=== PATIENT | male | born 1990 | race Caucasian/White ===

== ENCOUNTER 2016-11-23 03:26 | Inpatient (IN) | payer OTHER, MEDICAID ==
[2016-11-23] VITALS (17 sets, daily range): BP systolic 96–143; BP diastolic 55–73; PULSE 73–113; RESP 18–24; TEMP 99.1–100.8; O2SAT 91–100
[~2016-11-23] VITALS: Ht 175.3 cm; Wt 86.7 kg
[~2016-11-23 03:26] MED LIST: NAPR500 PO
[2016-11-23] MEDS ORDERED: ceFAZolin 2 GM PREMIX 50 ML IV STA (03:30)
[2016-11-23] MEDS ORDERED: GENTAMICIN/SOD CHL 80 MG/100 ML IV SCH (03:30)
[2016-11-23] MEDS ORDERED: ceFAZolin 2 GM PREMIX 50 ML ONE (03:35)
[2016-11-23] MEDS: MIDAZOLAM HCL 5 MG/ML VIAL (1 ML) ONE ×2 (03:42→08:10)
[2016-11-23] MEDS ORDERED: GENTAMICIN 80 MG PREMIX 100 ML ONE (03:45)
[2016-11-23 03:51] LABS: AUTOMATED NEUTROPHIL # 5.3 TH/MM3 (1.8-7.7); BASOPHIL # 0.1 TH/MM3 (0-0.2); EOSINOPHIL % 0.1 % (0.0-4.0); HEMATOCRIT 42.3 % (39.0-51.0); HEMO FLAGS AUTO DIFF; LYMPH % 49.1 % (9.0-44.0); LYMPHOCYTE # 5.7 TH/MM3 (1.0-4.8); MEAN CELL VOLUME 92.2 FL (80.0-100.0); MEAN CORPUSCULAR HEMOGLOBIN 30.4 PG (27.0-34.0); MONO % 4.3 % (0.0-8.0); NEUT % 45.5 % (16.0-70.0); PLATELET COUNT 240 TH/MM3 (150-450); RED BLOOD COUNT 4.59 MIL/MM3 (4.50-5.90); RED CELL DISTRIBUTION WIDTH 13.2 % (11.6-17.2); WHITE BLOOD COUNT 11.6 TH/MM3 (4.0-11.0)
[2016-11-23] MEDS: PANTOPRAZOLE SODIUM 40 MG VIAL IV SCH (04:00)
[2016-11-23] MEDS ORDERED: ONDANSETRON HCL 4 MG/2 ML VIAL IV PRN (04:00)
[2016-11-23] MEDS ORDERED: Post-op Orders (for Pharmacy) MISC XX ONE (04:00)
[2016-11-23] MEDS ORDERED: SODIUM CHLORIDE 0.9% FLUSH 10 ML FLUSH IV FLUSH PRN (04:00)
[2016-11-23] MEDS ORDERED: NALOXONE HCL 0.4 MG/ML AMP IV PRN (04:00)
[2016-11-23 04:02] LABS: INTERNATIONAL NORMALIZED RATIO 1.4 RATIO; PROTHROMBIN TIME - PATIENT 15.7 SEC (9.8-11.6)
[2016-11-23] MEDS ORDERED: IOHEXOL 350 MG/ML 10 ML VIAL (for RAD DIAG) IV ONE (04:06)
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
[2016-11-23 04:17] LABS: BANDS 1 % (0-6); NEUTROPHIL # MANUAL DIFF 5.7 TH/MM3 (1.8-7.7); POLYS (SEG NEUTROPHILS) 48 % (16-70); WBC DIFF SAMPLE 100
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
[2016-11-23 04:18] LABS: PLATELET ESTIMATE SMEAR NORMAL (NORMAL); PLATELET MORPHOLOGY NORMAL (NORMAL); SCAN/DIFF FINAL DIFF MANUAL
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
[2016-11-23] MEDS ORDERED: MIDAZOLAM HCL 5 MG/ML VIAL (1 ML) ONE (04:29)
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
[2016-11-23] MEDS ORDERED: LIDOCAINE HCL 1% 50 ML VIAL ONE (04:31)
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
[2016-11-23] MEDS ORDERED: DIPHTH/TETANUS/ACEL PERTUSSIS (BOOSTER) 0.5 ML VIAL/PFS IM ONE (04:53)
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
[2016-11-23] MEDS ORDERED: TRANEXAMIC ACID INJ 1,000 MG/10 ML AMP ONE (05:23)
[2016-11-23] MEDS ORDERED: SUCCINYLCHOLINE CHLORIDE 200 MG/10 ML VIAL ONE (05:24)
[2016-11-23] MEDS ORDERED: ETOMIDATE 20 MG/10 ML VIAL ONE (05:24)
[2016-11-23] MEDS ORDERED: SODIUM CHLOR 0.9% 1000 ML INJ 1,000 ML IV SCH (05:30)
[2016-11-23 05:55] LABS: BLOOD GAS BASE EXCESS -10.1 mmol/L (-2-2); BLOOD GAS HCO3 18 mmol/L (22-26); BLOOD GAS METHEMOGLOBIN 1.2 % (0-2); BLOOD GAS O2 HGB SATURATION 96 % (90-100); BLOOD GAS OXYGEN CONTENT 18.1 Vol % (12.0-20.0); BLOOD GAS PCO2 62 mmHg (38-42); BLOOD GAS PO2 222 mmHg (61-120); BLOOD GAS TOTAL HGB 13.1 G/DL (12.0-16.0); OXYGEN DEVICE VENTILATOR; TEMP CORR TO 98.6; VENT SETTINGS APRV
[2016-11-23 05:56] LABS: FIO2 100 %
[2016-11-23] MEDS: NOREPINEPHRINE-DEXTROSE DRIP 250 ML IV ONE ×2 (05:57→08:10)
[2016-11-23 05:58] LABS: NUMBER OF ARTERIAL PUNCTURES 1; STAT NO
[2016-11-23 05:59] LABS: CRITICAL VALUE YES; DRAW SITE RT RADIAL
--- NOTE | 2016-11-23 06:06 | RADRPT ---
EXAM DATE/TIME: 11/23/2016 04:33 [facility] COMPARISON: CHEST SINGLE AP, November 23, 2016, 3:22. INDICATIONS : E-T tube repositioning, second left chest tube placement, and O-G tube placement. MEDICAL HISTORY : None. SURGICAL HISTORY : None. ENCOUNTER: Subsequent ACUITY: 1 day PAIN SCORE: Non-responsive. LOCATION: Bilateral chest FINDINGS: Single portable frontal view the chest shows retraction of the endotracheal tube. The tip is 5 cm pro ximal to the justino. 2 left thoracostomy tubes and nasogastric tube noted. No pneumothorax. Consolida tion involving the left lung and right upper lobe unchanged. Subcutaneous air tracking over the left chest and lower neck. Heart is normal in size. Multiple left-sided rib fractures. Left clavicular fra cture. CONCLUSION: 1. Repositioning of the endotracheal tube. 2. Placement of second chest tube on the left. Shmuel Callaway Jr., MD on November 23, 2016 at 6:03 Board Certified Radiologist. This report was verified electronically.
[2016-11-23] MEDS ORDERED: VASOPRESSIN INJ 20 UNITS/ML VIAL ONE (06:15)
[2016-11-23] MEDS ORDERED: VASOPRESSIN 40 U/D5W 100 ML Shock/septic shock, do NOT titrate until taper off IV SCH ×2 (06:30)
--- NOTE | 2016-11-23 06:37 | PD.PROCEDR ---
Central Line Procedure REASON FOR PROCEDURE Central venous access PROCEDURE PERFORMED Central line placement: Right femoral vein CONSENT Informed consent for procedure was not obtained and concern emergent. Due to his hemodynamic instability patient. The risks and benefits of the procedure were discussed to include but limited to bleeding, clot formation, infection, and even . ANESTHESIA Local injection of 1% Lidocaine DESCRIPTION OF THE PROCEDURE The patient was placed in supine, mild Trendelenburg position. The area was exposed and cleansed with ChloraPrep, times two. Large sterile drape was used to cover the patient, with the site exposed, under sterile conditions including cap, face mask, sterile gown, and sterile gloves. On single attempt, the introducer needle was inserted with negative pressure in syringe and venous flash was obtained. The guide wire was then advanced without any restriction and the needle was removed. The dilator was used without any complications. Using Seldinger technique the triple-lumen catheter was advanced over the guide wire to a depth of 20 centimeters. The guide wire was removed. All ports were aspirated with dark venous blood return and flushed easily with sterile saline. All ports were capped. Antibiotic disc was placed around central line at puncture site. The central line was secured to the skin with two interrupted 2.0 silk sutures. The area was bandaged with sterile see-through central line bandage. RADIOLOGICAL DATA Ultrasound guidance was used to locate right femoral vein. Doppler/color flow was used to confirm venous flow. COMPLICATIONS: No apparent complications ESTIMATED BLOOD LOSS: Less than 1 cc. Abdullahi Navarrete MD Nov 23, 2016 06:37
--- NOTE | 2016-11-23 06:38 | PD.PROCEDR ---
Procedure Note Procedure DATE: 11/23/2016 PROCEDURE: Right femoral arterial catheter placement INDICATION: Dynamic access DETAILS OF PROCEDURE The patient was placed in supine position. The skin was cleansed with Chloraprep. Additional barrier precautions included large sterile drape, sterile gloves, sterile gown, face mask, and hat. 1% lidocaine was used for local anesthesia. Under direct ultrasound guidance and on the initial attempt, the artery was accessed with an introducer needle. The guide wire was advanced. Using Seldinger technique 20 gauge arterial catheter was placed. The guide wire was removed. The catheter was connected to a transducer line and flushed with saline. The video monitor displayed normal arterial wave forms. The catheter was secured with 2-0 silk. A sterile dressing with antibiotic disc was applied. ESTIMATED BLOOD LOSS: minimal COMPLICATIONS: None Abdullahi Navarrete MD Nov 23, 2016 06:37
[2016-11-23 07:08] LABS: HEMATOCRIT 38.1 % (39.0-51.0); MEAN CELL VOLUME 89.7 FL (80.0-100.0); MEAN CORPUSCULAR HEMOGLOBIN 30.3 PG (27.0-34.0); MEAN CORPUSCULAR HGB CONC 33.8 % (32.0-36.0); PLATELET COUNT 195 TH/MM3 (150-450); RED BLOOD COUNT 4.25 MIL/MM3 (4.50-5.90); RED CELL DISTRIBUTION WIDTH 14.3 % (11.6-17.2); REVIEW FLAG FINAL; WHITE BLOOD COUNT 17.9 TH/MM3 (4.0-11.0)
--- NOTE | 2016-11-23 07:24 | RADRPT ---
EXAM DATE/TIME: 11/23/2016 07:03 [facility] COMPARISON: CHEST SINGLE AP, November 23, 2016, 4:33. INDICATIONS : Evaluate pneumothorax. MEDICAL HISTORY : None. SURGICAL HISTORY : Left side chest tube ENCOUNTER: Subsequent ACUITY: 1 day PAIN SCORE: Non-responsive. LOCATION: Bilateral chest FINDINGS: The 2 left-sided chest tubes remain in place. No definite pneumothorax. It continues to be interstiti al infiltrates throughout the left lung. There is a mild right perihilar infiltrate. Otherwise the re st of the right lung is grossly clear and stable. The endotracheal tube and NG tube remain in place. There is subcutaneous emphysema along the left chest wall. The heart size is stable. The bony structu res are stable. No significant changes compared to the prior study. CONCLUSION: 1. No definite pneumothorax. 2. No significant change compared to the prior exam. Jacky Thompson MD on November 23, 2016 at 7:21 Board Certified Radiologist. This report was verified electronically.
[2016-11-23 07:31] LABS: APTT (PATIENT) 28.6 SEC (24.3-30.1); INTERNATIONAL NORMALIZED RATIO 1.3 RATIO; PROTHROMBIN TIME - PATIENT 14.1 SEC (9.8-11.6)
[2016-11-23] MEDS: SODIUM CHLORIDE 0.9% FLUSH 10 ML FLUSH IV FLUSH SCH ×2 (07:53→19:23)
[2016-11-23] MEDS ORDERED: GENTAMICIN SULFATE 80 MG/2 ML VIAL ONE (07:59)
[2016-11-23] MEDS ORDERED: ceFAZolin INJ 1,000 MG VIAL ONE (07:59)
[2016-11-23] MEDS ORDERED: VANCOMYCIN HCL 1000 MG VIAL ONE (07:59)
[2016-11-23] MEDS ORDERED: PHYTONADIONE INJ 10 MG in SODIUM CHLORIDE 0.9% INJ 50 ML IV ONE (08:00)
[2016-11-23] MEDS: PROPOFOL 1000 MG/100 ML INJ 100 ML IV SCH ×4 (08:04→23:16)
[2016-11-23] MEDS: SODIUM CHLOR 0.9% 1000 ML INJ 1,000 ML IV SCH ×3 (08:04→22:46)
[2016-11-23] MEDS: fentaNYL DRIP 250 ML IV SCH ×2 (08:05→15:24)
[2016-11-23 08:44] LABS: BLOOD GAS BASE EXCESS -10.6 mmol/L (-2-2); BLOOD GAS CARBOXYHEMOGLOBIN 0.9 % (0-4); BLOOD GAS HCO3 16 mmol/L (22-26); BLOOD GAS O2 HGB SATURATION 96 % (90-100); BLOOD GAS OXYGEN CONTENT 18.5 Vol % (12.0-20.0); BLOOD GAS PCO2 46 mmHg (38-42); BLOOD GAS PO2 139 mmHg (61-120); BLOOD GAS TOTAL HGB 13.5 G/DL (12.0-16.0); TEMP CORR TO 98.6
[2016-11-23 08:45] LABS: CRITICAL VALUE YES; OXYGEN DEVICE VENTILATOR
[2016-11-23 08:46] LABS: DRAW SITE ART LINE; FIO2 100 %; STAT NO; VENT SETTINGS PC/AC
[2016-11-23] MEDS ORDERED: TERBUTALINE INJ 1 MG/ML AMP SQ PRN ×3 (09:00→14:30)
[2016-11-23] MEDS ORDERED: levETIRAcetam INJ 500 MG in SODIUM CHLORIDE 0.9% INJ 100 ML IV SCH (09:00)
[2016-11-23] MEDS ORDERED: VASOPRESSIN INJ 40 UNITS in DEXTROSE 5% IN WATER 100ML INJ 98 ML IV SCH ×2 (09:00)
[2016-11-23] MEDS: NOREPINEPHRINE INJ 4 MG in SODIUM CHLOR 0.9% 250 ML INJ 246 ML IV SCH ×5 (09:01→22:46)
[2016-11-23 10:02] LABS: BLOOD GAS BASE EXCESS -8.3 mmol/L (-2-2); BLOOD GAS CARBOXYHEMOGLOBIN 0.9 % (0-4); BLOOD GAS HCO3 16 mmol/L (22-26); BLOOD GAS O2 HGB SATURATION 98 % (90-100); BLOOD GAS OXYGEN CONTENT 17.3 Vol % (12.0-20.0); BLOOD GAS PCO2 31 mmHg (38-42); BLOOD GAS PO2 321 mmHg (61-120); TEMP CORR TO 98.6
[2016-11-23 10:03] LABS: CRITICAL VALUE YES; DRAW SITE ART LINE; FIO2 100 %; OXYGEN DEVICE VENTILATOR; STAT NO; VENT SETTINGS PC/AC
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
[2016-11-23] MEDS: VASOPRESSIN INJ 40 UNITS in SODIUM CHLORIDE 0.9% INJ 100 ML IV SCH (11:11)
[2016-11-23 11:19] LABS: HEMATOCRIT 36.5 % (39.0-51.0); REVIEW FLAG FINAL
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
--- NOTE | 2016-11-23 14:28 | RADRPT ---
EXAM DATE/TIME: 11/23/2016 13:52 [facility] COMPARISON: CT THORAX W CONTRAST, June 02, 2015, 13:07. INDICATIONS : Acute respiratory change. MEDICAL HISTORY : None. SURGICAL HISTORY : None. ENCOUNTER: Initial ACUITY: 1 day PAIN SCORE: Non-responsive. LOCATION: Bilateral chest FINDINGS: Endotracheal tube is present with tip 6 cm above the justino. A nasogastric tube descends in the stoma ch. A right subclavian vascular sheath is present. There left thoracostomy tubes are noted. There is extensive consolidative change in the left lung. No significant pneumothorax. Extensive subcutaneous emphysema. Rib fractures. Cardiac contours are grossly satisfactory. CONCLUSION: Satisfactory support line and tube positioning. Bennie Prieto MD on November 23, 2016 at 14:24 Board Certified Radiologist. This report was verified electronically.
[2016-11-23] MEDS ORDERED: PHENYLEPHRINE INJ 160 MG in DEXTROSE 5% IN WATE 500 ML INJ 484 ML IV SCH ×2 (14:30)
[2016-11-23] MEDS ORDERED: SODIUM CHLOR 0.9% 1000 ML INJ 1,000 ML IV ONE ×4 (14:30→22:00)
[2016-11-23] MEDS ORDERED: ALBUMIN HUMAN 5% 25 GM/500 ML BOTTLE IV ONE ×2 (14:30→22:00)
[2016-11-23] MEDS ORDERED: ACETAMINOPHEN 325 MG TAB PO PRN (14:30)
[2016-11-23] MEDS: ACETAMINOPHEN 1000 MG/100 ML VIAL IV PRN (14:49)
[2016-11-23 14:51] LABS: BLOOD GAS VENOUS BASE EXCESS -8.6 mmol/L (-2-2); BLOOD GAS VENOUS HCO3 18 mmol/L (22-26); BLOOD GAS VENOUS O2 CONTENT 11.4 Vol % (9.0-17.0); BLOOD GAS VENOUS O2 HGB SAT 67 % (70-76); BLOOD GAS VENOUS PCO2 46 mmHg (44-48); BLOOD GAS VENOUS PO2 39 mmHg (35-40); BLOOD GAS VENOUS pH 7.21 (7.360-7.400); CRITICAL VALUE YES; OXYGEN DEVICE VENTILATOR; TEMP CORR TO 98.6
[2016-11-23 14:55] LABS: DRAW SITE CENTRAL LINE; FIO2 100 %; STAT YES; VENT SETTINGS BILEVEL
[2016-11-23 15:21] LABS: HEMATOCRIT 33.9 % (39.0-51.0); REVIEW FLAG FINAL
[2016-11-23] MEDS ORDERED: PHENYLEPHRINE INJ 40 MG in DEXTROSE 5% IN WATE 500 ML INJ 496 ML IV SCH ×2 (15:30)
[2016-11-23 15:35] LABS: APTT (PATIENT) 30.1 SEC (24.3-30.1); INTERNATIONAL NORMALIZED RATIO 1.1 RATIO; PROTHROMBIN TIME - PATIENT 12.7 SEC (9.8-11.6)
[2016-11-23 16:19] LABS: BLOOD GAS BASE EXCESS -7.9 mmol/L (-2-2); BLOOD GAS CARBOXYHEMOGLOBIN 0.5 % (0-4); BLOOD GAS HCO3 19 mmol/L (22-26); BLOOD GAS O2 HGB SATURATION 98 % (90-100); BLOOD GAS PCO2 49 mmHg (38-42); BLOOD GAS PO2 247 mmHg (61-120); BLOOD GAS TOTAL HGB 11.2 G/DL (12.0-16.0); CRITICAL VALUE YES; OXYGEN DEVICE VENTILATOR; TEMP CORR TO 98.6
[2016-11-23 16:21] LABS: DRAW SITE ART LINE; FIO2 100 %; VENT SETTINGS BILEVEL
[2016-11-23 16:22] LABS: STAT NO
--- NOTE | 2016-11-23 16:59 | EC ---
Study Study Date:11/23/2016 STUDY CONCLUSIONS SUMMARY - Left ventricle: The cavity size was normal. Wall thickness was normal. Systolic function was grossly normal. - Aortic valve: Valve area: 2.4cm^2 (Vmax). If LV function is below 40, please consider prescribing an ACEI or ARB or document rationale for non-use. PROCEDURE DATA STUDY STATUS: Elective. Procedure: Transthoracic echocardiography. Image quality was poor. Scanning was performed from the parasternal, apical, and subcostal acoustic windows. Study completion: The patient tolerated the procedure well. Transthoracic echocardiography. M-mode, complete 2D, complete spectral Doppler, and color Doppler. Patient status: Inpatient. CARDIAC ANATOMY LEFT VENTRICLE: Poorly visualized. The cavity size was normal. Wall thickness was normal. Systolic function was grossly normal. Images were inadequate for LV wall motion assessment. AORTIC VALVE: Poorly visualized. Doppler: Transvalvular velocity was within the normal range. There was no stenosis. No regurgitation. Valve area: 2.4cm^2 (Vmax). AORTA: Aortic root: The aortic root was normal in size. MITRAL VALVE: Poorly visualized. Structurally normal valve. Doppler: Transvalvular velocity was within the normal range. There was no evidence for stenosis. No regurgitation. LEFT ATRIUM: Poorly visualized. RIGHT VENTRICLE: Poorly visualized. PULMONIC VALVE: Not visualized. Doppler: No regurgitation. TRICUSPID VALVE: Poorly visualized. Doppler: Transvalvular velocity was within the normal range. No regurgitation. PULMONARY ARTERY: Not visualized. Systolic pressure was within the normal range. RIGHT ATRIUM: Poorly visualized. The atrium was normal in size. PERICARDIUM: There was no pericardial effusion. SYSTEMIC VEINS: Inferior vena cava: The vessel was normal in size. BASIC MEASUREMENTS ADULT NORMAL Aortic valve Leaflet separation 15 mm 15-26 BASIC MEASUREMENTS ADULT NORMAL Left ventricle LV internal dimension, ED 46.7 mm 37-56 LV internal dimension, ES 35.4 mm Fractional shortening *24 % 29-45 LV posterior wall, ED *12.4 mm 6-11 Septal/posterior wall ratio, ED 0.91 Relative wall thickness, ED *0.53 <0.45 Volume, ED, Teichholz 101 ml Volume, ES, Teichholz 52.3 ml Ejection fraction, Teichholz *48.2 % 64-83 Stroke volume, Teichholz 48.7 ml Wall mass 206.2 g Ventricular septum Septal thickness, ED 11.3 mm Aortic valve Leaflet separation 15 mm 15-26 Aorta Root diameter, ED 32 mm 20-37 Left atrium Anterior-posterior dimension, ES 30 mm 19-40 LA/aortic root ratio 0.94 DOPPLER MEASUREMENTS ADULT NORMAL Main pulmonary artery Pressure, S 28 mm Hg =30 Aortic valve Peak velocity, S 96.4 cm/s Valve area, Vmax 2.4 cm^2 Mitral valve Peak E-wave velocity 69.6 cm/s Peak A-wave velocity 65.6 cm/s Deceleration time *127 ms 150-230 Peak E/A ratio 1.1 Tricuspid valve Regurgitant peak velocity 214 cm/s Peak RV-RA gradient, S 18 mm Hg Maximal regurgitant velocity 214 cm/s Systemic veins Estimated CVP 10 mm Hg Right ventricle RV pressure, S 28 mm Hg <30 LEGEND: Mean values are shown as u=mean value. Asterisk (*) huang values outside specified normal range. Prepared and signed by Flaco Peña [id number]
[2016-11-23 17:55] LABS: BLOOD GAS CARBOXYHEMOGLOBIN 0.8 % (0-4); BLOOD GAS HCO3 18 mmol/L (22-26); BLOOD GAS METHEMOGLOBIN 0.8 % (0-2); BLOOD GAS O2 HGB SATURATION 97 % (90-100); BLOOD GAS OXYGEN CONTENT 14.3 Vol % (12.0-20.0); BLOOD GAS PCO2 39 mmHg (38-42); BLOOD GAS PO2 113 mmHg (61-120); BLOOD GAS TOTAL HGB 10.4 G/DL (12.0-16.0); CRITICAL VALUE YES; TEMP CORR TO 98.6
[2016-11-23 17:56] LABS: OXYGEN DEVICE VENTILATOR; VENT SETTINGS BILEVEL
[2016-11-23 17:57] LABS: DRAW SITE ART LINE; FIO2 80 %; STAT NO
[2016-11-23] MEDS: CHLORHEXIDINE 0.12% (ORAL KIT) 15 ML CUP MT SCH (19:23)
[2016-11-23 19:40] LABS: HEMATOCRIT 33.7 % (39.0-51.0); REVIEW FLAG FINAL
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
[2016-11-23 22:52] LABS: HEMATOCRIT 27.5 % (39.0-51.0)
[2016-11-23 22:58] LABS: REVIEW FLAG FINAL
[2016-11-23 23:40] LABS: BLOOD GAS BASE EXCESS -10.2 mmol/L (-2-2); BLOOD GAS CARBOXYHEMOGLOBIN 0.6 % (0-4); BLOOD GAS HCO3 15 mmol/L (22-26); BLOOD GAS METHEMOGLOBIN 0.9 % (0-2); BLOOD GAS O2 HGB SATURATION 97 % (90-100); BLOOD GAS OXYGEN CONTENT 13.4 Vol % (12.0-20.0); BLOOD GAS PCO2 35 mmHg (38-42); BLOOD GAS PO2 136 mmHg (61-120); BLOOD GAS TOTAL HGB 9.6 G/DL (12.0-16.0); CRITICAL VALUE YES; OXYGEN DEVICE VENTILATOR; TEMP CORR TO 98.6
[2016-11-23 23:41] LABS: DRAW SITE ART LINE; FIO2 80 %; STAT NO; VENT SETTINGS BILEVEL/
[2016-11-24] VITALS (25 sets, daily range): BP systolic 113–153; BP diastolic 60–79; PULSE 73–123; RESP 11–23; TEMP 99–102.1; O2SAT 94–100
[2016-11-24] MEDS: SODIUM BICARBONATE 8.4% INJ 150 MEQ in DEXTROSE 5% IN WATE 1000ML INJ 1,000 ML IV SCH ×6 (00:32→12:42)
[2016-11-24] MEDS: fentaNYL DRIP 250 ML IV SCH ×2 (02:03→16:08)
[2016-11-24 02:33] LABS: HEMATOCRIT 26.2 % (39.0-51.0)
[2016-11-24 02:56] LABS: REVIEW FLAG AUTO DIFF
[2016-11-24] MEDS: PANTOPRAZOLE SODIUM 40 MG VIAL IV SCH (03:09)
[2016-11-24 04:59] LABS: AUTOMATED NEUTROPHIL # 10.7 TH/MM3 (1.8-7.7); BASOPHIL % 0.2 % (0.0-2.0); EOSINOPHIL # 0.1 TH/MM3 (0-0.4); EOSINOPHIL % 0.4 % (0.0-4.0); HEMATOCRIT 26.2 % (39.0-51.0); LYMPH % 12.7 % (9.0-44.0); LYMPHOCYTE # 1.7 TH/MM3 (1.0-4.8); MEAN CELL VOLUME 89.7 FL (80.0-100.0); MEAN CORPUSCULAR HEMOGLOBIN 29.9 PG (27.0-34.0); MEAN CORPUSCULAR HGB CONC 33.3 % (32.0-36.0); MONO % 6.4 % (0.0-8.0); NEUT % 80.3 % (16.0-70.0); PLATELET COUNT 81 TH/MM3 (150-450); RED BLOOD COUNT 2.93 MIL/MM3 (4.50-5.90); RED CELL DISTRIBUTION WIDTH 14.3 % (11.6-17.2); WHITE BLOOD COUNT 13.4 TH/MM3 (4.0-11.0)
[2016-11-24 05:05] LABS: BLOOD GAS BASE EXCESS -6.9 mmol/L (-2-2); BLOOD GAS CARBOXYHEMOGLOBIN 0.9 % (0-4); BLOOD GAS HCO3 18 mmol/L (22-26); BLOOD GAS METHEMOGLOBIN 0.8 % (0-2); BLOOD GAS O2 HGB SATURATION 95 % (90-100); BLOOD GAS OXYGEN CONTENT 12.2 Vol % (12.0-20.0); BLOOD GAS PCO2 33 mmHg (38-42); BLOOD GAS PO2 83 mmHg (61-120); CRITICAL VALUE NO; OXYGEN DEVICE VENTILATOR; TEMP CORR TO 98.6
[2016-11-24 05:06] LABS: VENT SETTINGS BILEVEL
[2016-11-24 05:07] LABS: DRAW SITE ART LINE; FIO2 45 %; STAT YES
[2016-11-24 05:08] LABS: INTERNATIONAL NORMALIZED RATIO 1.1 RATIO; PROTHROMBIN TIME - PATIENT 12.7 SEC (9.8-11.6)
[2016-11-24 05:15] LABS: HEMO FLAGS AUTO DIFF
[2016-11-24] MEDS: NOREPINEPHRINE INJ 4 MG in SODIUM CHLOR 0.9% 250 ML INJ 246 ML IV SCH (05:15)
[2016-11-24] MEDS: PROPOFOL 1000 MG/100 ML INJ 100 ML IV SCH ×4 (05:19→23:00)
[2016-11-24 05:27] LABS: BICARBONATE 18.5 MEQ/L (21.0-32.0); CALCIUM-PROTEIN CORRECTED 7.7 MG/DL (8.5-10.1); MAGNESIUM 1.4 MG/DL (1.5-2.5); POTASSIUM 4.3 MEQ/L (3.5-5.1); TOTAL BILIRUBIN ADULT 0.4 MG/DL (0.2-1.0)
[2016-11-24] MEDS ORDERED: SODIUM CHLOR 0.9% 1000 ML INJ 1,000 ML IV ONE ×3 (05:45)
[2016-11-24 07:30] LABS: BANDS 36 % (0-6); EOSINOPHILS 2 % (0-4); NEUTROPHIL # MANUAL DIFF 11.7 TH/MM3 (1.8-7.7); POLYS (SEG NEUTROPHILS) 51 % (16-70); WBC DIFF SAMPLE 100
[2016-11-24 07:31] LABS: PLATELET ESTIMATE SMEAR LOW (NORMAL); PLATELET MORPHOLOGY NORMAL (NORMAL); SCAN/DIFF FINAL DIFF MANUAL
[2016-11-24] MEDS: SODIUM CHLORIDE 0.9% FLUSH 10 ML FLUSH IV FLUSH SCH ×2 (08:54→21:00)
[2016-11-24] MEDS: VASOPRESSIN INJ 40 UNITS in SODIUM CHLORIDE 0.9% INJ 100 ML IV SCH (08:55)
[2016-11-24] MEDS: CHLORHEXIDINE 0.12% (ORAL KIT) 15 ML CUP MT SCH (08:55)
[2016-11-24] MEDS ORDERED: POTASSIUM CHLOR 20 MEQ PREMIX 100 ML IV PRN (09:00)
[2016-11-24] MEDS ORDERED: MAGNESIUM SULFATE INJ 2 GM in SODIUM CHLORIDE 0.9% INJ 96 ML IV PRN (09:00)
[2016-11-24] MEDS ORDERED: POTASSIUM PHOSPHATE MONOBASIC 500 MG TAB PO/TUBE PRN (09:00)
[2016-11-24] MEDS ORDERED: MAGNESIUM OXIDE 400 MG TAB PO PRN (09:00)
[2016-11-24] MEDS ORDERED: POTASSIUM PHOSPHATE MONOBASIC 500 MG TAB PO PRN (09:00)
[2016-11-24] MEDS ORDERED: RESP: ALBUTEROL 2.5 MG/IPRATROPIUM 0.5 MG NEB (PRN) NEB (09:00)
[2016-11-24] MEDS ORDERED: POTASSIUM PHOSPHATE INJ 30 MMOL in SODIUM CHLOR 0.9% 250 ML INJ 250 ML IV PRN (09:00)
[2016-11-24] MEDS ORDERED: MAGNESIUM SULFATE INJ 4 GM in SODIUM CHLORIDE 0.9% INJ 92 ML IV PRN (09:00)
[2016-11-24] MEDS: ACETAMINOPHEN 1000 MG/100 ML VIAL IV PRN (09:03)
[2016-11-24] MEDS: LACTULOSE SYRUP 20 GM/30 ML CUP PO SCH (09:07)
--- NOTE | 2016-11-24 09:30 | RADRPT ---
EXAM DATE/TIME: 11/24/2016 09:07 [facility] COMPARISON: CHEST SINGLE AP, November 23, 2016, 13:52. INDICATIONS : Evaluate pneumothorax. MEDICAL HISTORY : Hypertension. Leukemia. SURGICAL HISTORY : Hiatial hernia repair. ENCOUNTER: Subsequent ACUITY: 2 days PAIN SCORE: Non-responsive. LOCATION: Bilateral chest FINDINGS: The cardiac silhouette is normal in transverse diameter. Support lines and tubes are in satisfactory position. There is patchy alveolar disease on the left compatible with edema or pneumonia. There is s ubcutaneous emphysema along the left lateral chest wall. There is no evidence of pneumothorax. CONCLUSION: 1. There is no evidence of pneumothorax. Angel Freed MD on November 24, 2016 at 9:25 Board Certified Radiologist. This report was verified electronically.
[2016-11-24] MEDS: RESP: ALBUTEROL 2.5 MG/IPRATROPIUM 0.5 MG NEB (SCH) NEB ×3 (09:32→20:20)
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
[2016-11-24 11:59] LABS: BLOOD GAS BASE EXCESS -6.2 mmol/L (-2-2); BLOOD GAS CARBOXYHEMOGLOBIN 0.8 % (0-4); BLOOD GAS HCO3 21 mmol/L (22-26); BLOOD GAS METHEMOGLOBIN 1.2 % (0-2); BLOOD GAS O2 HGB SATURATION 95 % (90-100); BLOOD GAS OXYGEN CONTENT 13.4 Vol % (12.0-20.0); BLOOD GAS PCO2 55 mmHg (38-42); BLOOD GAS PO2 109 mmHg (61-120); BLOOD GAS TOTAL HGB 9.9 G/DL (12.0-16.0); TEMP CORR TO 98.6
[2016-11-24 12:00] LABS: CRITICAL VALUE YES; OXYGEN DEVICE VENTILATOR
[2016-11-24 12:01] LABS: DRAW SITE ART LINE; FIO2 80 %; STAT NO; VENT SETTINGS BILEVEL
[2016-11-24 13:03] LABS: HEMATOCRIT 29.7 % (39.0-51.0)
[2016-11-24 13:05] LABS: REVIEW FLAG FINAL
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
[2016-11-24] MEDS: ceFAZolin 2 GM PREMIX 50 ML IV SCH (16:34)
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
[2016-11-24] MEDS: GENTAMICIN/SOD CHL 80 MG/100 ML IV SCH (18:05)
[2016-11-25] VITALS (19 sets, daily range): BP systolic 100–142; BP diastolic 58–79; PULSE 100–137; RESP 10–18; TEMP 99.3–101.8; O2SAT 96–100
[2016-11-25] MEDS: ceFAZolin 2 GM PREMIX 50 ML IV SCH ×3 (00:27→17:12)
[2016-11-25] MEDS: ACETAMINOPHEN 1000 MG/100 ML VIAL IV PRN ×2 (00:27→08:48)
[2016-11-25] MEDS: CHLORHEXIDINE 0.12% (ORAL KIT) 15 ML CUP MT SCH ×3 (00:28→20:00)
[2016-11-25] MEDS: SODIUM BICARBONATE 8.4% INJ 150 MEQ in DEXTROSE 5% IN WATE 1000ML INJ 1,000 ML IV SCH ×2 (00:53)
[2016-11-25] MEDS: GENTAMICIN/SOD CHL 80 MG/100 ML IV SCH ×3 (01:27→17:12)
[2016-11-25] MEDS: PANTOPRAZOLE SODIUM 40 MG VIAL IV SCH (02:26)
[2016-11-25] MEDS: PROPOFOL 1000 MG/100 ML INJ 100 ML IV SCH ×3 (02:26→12:19)
[2016-11-25] MEDS: RESP: ALBUTEROL 2.5 MG/IPRATROPIUM 0.5 MG NEB (SCH) NEB ×4 (03:44→19:38)
[2016-11-25 05:15] LABS: BLOOD GAS BASE EXCESS 0.9 mmol/L (-2-2); BLOOD GAS CARBOXYHEMOGLOBIN 1.1 % (0-4); BLOOD GAS HCO3 26 mmol/L (22-26); BLOOD GAS METHEMOGLOBIN 1.2 % (0-2); BLOOD GAS O2 HGB SATURATION 96 % (90-100); BLOOD GAS OXYGEN CONTENT 14.1 Vol % (12.0-20.0); BLOOD GAS PCO2 51 mmHg (38-42); BLOOD GAS PO2 113 mmHg (61-120); BLOOD GAS TOTAL HGB 10.3 G/DL (12.0-16.0); TEMP CORR TO 98.6
[2016-11-25 05:16] LABS: CRITICAL VALUE YES; OXYGEN DEVICE VENTILATOR
[2016-11-25 05:17] LABS: DRAW SITE ART LINE; FIO2 50 %; STAT NO; VENT SETTINGS BILEVEL
[2016-11-25 05:22] LABS: AUTOMATED NEUTROPHIL # 11.6 TH/MM3 (1.8-7.7); BASOPHIL % 0.3 % (0.0-2.0); EOSINOPHIL # 0.2 TH/MM3 (0-0.4); EOSINOPHIL % 1.5 % (0.0-4.0); HEMATOCRIT 27.7 % (39.0-51.0); LYMPH % 8.4 % (9.0-44.0); LYMPHOCYTE # 1.1 TH/MM3 (1.0-4.8); MEAN CELL VOLUME 87.1 FL (80.0-100.0); MEAN CORPUSCULAR HEMOGLOBIN 29.4 PG (27.0-34.0); MEAN CORPUSCULAR HGB CONC 33.8 % (32.0-36.0); NEUT % 84.8 % (16.0-70.0); PLATELET COUNT 61 TH/MM3 (150-450); RED BLOOD COUNT 3.18 MIL/MM3 (4.50-5.90); RED CELL DISTRIBUTION WIDTH 15.4 % (11.6-17.2); WHITE BLOOD COUNT 13.7 TH/MM3 (4.0-11.0)
[2016-11-25 05:36] LABS: HEMO FLAGS AUTO DIFF
[2016-11-25 05:55] LABS: BICARBONATE 32.7 MEQ/L (21.0-32.0); CALCIUM-PROTEIN CORRECTED 8.4 MG/DL (8.5-10.1); MAGNESIUM 1.6 MG/DL (1.5-2.5); POTASSIUM 3.8 MEQ/L (3.5-5.1); TOTAL BILIRUBIN ADULT 0.5 MG/DL (0.2-1.0)
--- NOTE | 2016-11-25 06:15 | RADRPT ---
EXAM DATE/TIME: 11/25/2016 05:15 [facility] COMPARISON: CHEST SINGLE AP, November 24, 2016, 9:07. INDICATIONS : Shortness of breath. MEDICAL HISTORY : None. SURGICAL HISTORY : None. ENCOUNTER: Subsequent ACUITY: 2 days PAIN SCORE: Non-responsive. LOCATION: Bilateral chest FINDINGS: 2 portable frontal view of the chest show 2 thoracostomy tubes on the left. Endotracheal tube tip lie s centimeters from the justino. Nasogastric tube coiled in the stomach with the tip towards the cardia . Consolidation of the left lung is stable. No pneumothorax. Subcutaneous air overlies the left chest . Heart is normal in size. Right lung is clear. Left rib and left clavicular fractures. CONCLUSION: No pneumothorax. Stable consolidation of the left lung likely pulmonary contusion in nature. Shmuel Callaway Jr., MD on November 25, 2016 at 6:12 Board Certified Radiologist. This report was verified electronically.
[2016-11-25 07:58] LABS: BANDS 35 % (0-6); BASOPHILS 2 % (0-2); EOSINOPHILS 1 % (0-4); NEUTROPHIL # MANUAL DIFF 12.2 TH/MM3 (1.8-7.7); POLYS (SEG NEUTROPHILS) 54 % (16-70); WBC DIFF SAMPLE 100
[2016-11-25 07:59] LABS: PLATELET ESTIMATE SMEAR LOW (NORMAL); PLATELET MORPHOLOGY NORMAL (NORMAL); SCAN/DIFF FINAL DIFF MANUAL
[2016-11-25] MEDS: SODIUM CHLORIDE 0.9% FLUSH 10 ML FLUSH IV FLUSH SCH ×2 (08:00→21:00)
[2016-11-25] MEDS: LACTULOSE SYRUP 20 GM/30 ML CUP PO SCH (08:00)
--- NOTE | 2016-11-25 08:52 | PD.ORT.PN ---
Subjective Subjective Remarks intubated Objective Vitals Vital Signs Date Time Temp Pulse Resp B/P Pulse Ox O2 Delivery O2 Flow Rate FiO2 11/25/16 07:41 100 50 11/25/16 04:00 80 11/25/16 04:00 112 11/25/16 04:00 99.5 102 10 125/62 100 11/25/16 03:46 100 50 11/25/16 02:00 122 11/25/16 00:00 80 11/25/16 00:00 101.8 137 16 142/79 96 11/25/16 00:00 122 11/24/16 23:51 99 60 11/24/16 22:00 122 11/24/16 20:25 100 70 11/24/16 20:00 101.8 116 16 142/79 96 11/24/16 20:00 123 11/24/16 20:00 80 11/24/16 19:00 99 Mechanical Ventilator 80 11/24/16 18:00 120 11/24/16 16:20 98 80 11/24/16 16:00 116 11/24/16 16:00 99.7 116 16 153/74 100 11/24/16 16:00 80 11/24/16 14:00 102 11/24/16 12:00 99.5 96 11 125/60 98 11/24/16 12:00 80 11/24/16 12:00 96 11/24/16 11:41 96 80 11/24/16 10:00 83 I/O 11/24/16 11/24/16 11/24/16 11/25/16 11/25/16 11/25/16 07:00 15:00 23:00 07:00 15:00 23:00 Intake Total 7882 ml 2768 ml 2202 ml Output Total 760 ml 70 ml 1795 ml Balance 7122 ml 2698 ml 407 ml Intake IV Total 7882 ml 2018 ml 2202 ml Packed Cells 500 ml Other 250 ml Output Urine Total 625 ml 1650 ml Gastric Drainage Total 0 ml 0 ml 25 ml Chest Tube Drainage Total 135 ml 70 ml 120 ml # Bowel Movements 0 Result Diagram: 11/25/16 0505 11/25/16 0500 Imaging Last 24 hours Impressions Pelvis X-Ray 11/23/16 5995 Signed Impressions: Service Date/Time: Wednesday, November 23, 2016 03:22 - CONCLUSION: Unremarkable examination of the pelvis. Shmuel Callaway Jr., MD Head CT 11/23/16 0345 Signed Impressions: Service Date/Time: Wednesday, November 23, 2016 04:00 - CONCLUSION: 1. Right frontal soft tissue hematoma. 2. No acute intracranial abnormality. Shmuel Callaway Jr., MD Chest X-Ray 11/23/16 0345 Signed Impressions: Service Date/Time: Wednesday, November 23, 2016 03:22 - CONCLUSION: 1. Small left pneumothorax. 2. Tip of the endotracheal tube 1.5 cm down the right mainstem bronchus. 3. Bilateral pulmonary consolidations. These likely relate to pulmonary contusions. Shmuel Callaway Jr., MD Chest CT 11/23/16 0345 Signed Impressions: Service Date/Time: Wednesday, November 23, 2016 04:06 - CONCLUSION: 1. Large left hydropneumothorax despite left-sided chest tube. 2. Subcutaneous air tracking along the left chest and left neck. 3. Bilateral pulmonary consolidations more pronounced on the left. This likely relates to pulmonary contusion. 4. Left second through eighth rib fractures. 5. Left clavicular fracture. 6. Tip of the endotracheal tube 1.5 cm down the right mainstem bronchus. Shmuel Callaway Jr., MD Cervical Spine CT 11/23/16 0345 Signed Impressions: Service Date/Time: Wednesday, November 23, 2016 04:00 - CONCLUSION: 1. No fracture or dislocation. 2. Air tracking along the left neck. 3. See the CT of the thorax dictated separately. Shmuel Callaway Jr., MD Abdomen/Pelvis CT 11/23/16 0345 Signed Impressions: Service Date/Time: Wednesday, November 23, 2016 04:06 - CONCLUSION: 1. Small splenic laceration with a small amount of blood adjacent to the spleen. No ongoing hemorrhage appreciated. 2. See the CT of the chest reported separately. 3. Degraded study by breathing motion artifact. Shmuel Callaway Jr., MD Femur X-Ray 11/23/16 Signed Impressions: Service Date/Time: Wednesday, November 23, 2016 03:22 - CONCLUSION: Comminuted fracture as detailed above. Shmuel Callaway Jr., MD Elbow X-Ray 11/23/16 0000 Signed Impressions: Service Date/Time: Wednesday, November 23, 2016 03:22 - CONCLUSION: Fracture dislocation as detailed above. Shmuel Callaway Jr., MD Chest X-Ray 11/23/16 0000 Signed Impressions: Service Date/Time: Wednesday, November 23, 2016 07:03 - CONCLUSION: 1. No definite pneumothorax. 2. No significant change compared to the prior exam. Jacky Thmopson MD Chest X-Ray 11/23/16 0000 Signed Impressions: Service Date/Time: Wednesday, November 23, 2016 04:33 - CONCLUSION: 1. Repositioning of the endotracheal tube. 2. Placement of second chest tube on the left. Shmuel Callaway Jr., MD Chest X-Ray 11/23/16 0000 Signed Impressions: Service Date/Time: Wednesday, November 23, 2016 03:22 - CONCLUSION: 1. Tip of the endotracheal tube down the right mainstem bronchus for 1.5 cm. 2. Bilateral pulmonary contusions more pronounced on the left. 3. Left clavicular fracture. 4. Multiple left rib fractures. 5. Subcutaneous air. 6. No discernible pneumothorax. Shmuel Callaway Jr., MD Objective Remarks Patient is intubated and sedated. Examination of right upper extremity and right lower extremity reveals no obvious pain or deformity with motion. Motor and sensory exams are not possible. Examination of left leg reveals obvious deformity of his thigh. Thigh compartments are soft. He does have swelling of the thigh. Dorsalis pedis pulses palpable. Examination of left arm reveals that he is in a long-arm splint. split taken down and 8 cm laceration irrigated with saline and packed with betadine and 4x4s , elbow is reduced and new long arm splint applied. He has good cap refill his fingers. Motor and sensory exams are not possible. Assessment & Plan Assessment and Plan Collin has multiple injuries including a closed left femoral shaft fracture and possible open left elbow fracture dislocation. Patient will need surgical intervention for intramedullary nail fixation of left femur. He will need irrigation and debridement of open left elbow with possible open reduction internal fixation or possible external fixation of left elbow. Patient has not been cleared for surgery today. I'll tentatively plan on surgery tomorrow. bacitracin applied to all abrasions BID NPO after Collin Cortez Jr. Nov 25, 2016 08:52
[2016-11-25] MEDS: SODIUM PHOSPHATE INJ 30 MMOL in SODIUM CHLOR 0.9% 250 ML INJ 240 ML IV PRN (09:44)
[2016-11-25] MEDS: NOREPINEPHRINE INJ 4 MG in SODIUM CHLOR 0.9% 250 ML INJ 246 ML IV SCH (09:44)
[2016-11-25] MEDS: LACTATED RINGER'S 1000 ML INJ 1,000 ML IV SCH ×2 (10:31→21:00)
[2016-11-25] MEDS: BACITRACIN TOP OINT 15 GM TUBE TOPICAL SCH ×2 (10:31→21:00)
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
[2016-11-25 12:14] LABS: BLOOD GAS BASE EXCESS 3.8 mmol/L (-2-2); BLOOD GAS CARBOXYHEMOGLOBIN 1.3 % (0-4); BLOOD GAS HCO3 29 mmol/L (22-26); BLOOD GAS METHEMOGLOBIN 1.2 % (0-2); BLOOD GAS O2 HGB SATURATION 95 % (90-100); BLOOD GAS OXYGEN CONTENT 12.5 Vol % (12.0-20.0); BLOOD GAS PCO2 48 mmHg (38-42); BLOOD GAS PO2 89 mmHg (61-120); BLOOD GAS TOTAL HGB 9.3 G/DL (12.0-16.0); CRITICAL VALUE NO; OXYGEN DEVICE VENTILATOR; TEMP CORR TO 98.6
[2016-11-25 12:15] LABS: DRAW SITE ART LINE; FIO2 50 %; STAT NO; VENT SETTINGS PRVC/AC
--- NOTE | 2016-11-25 12:52 | MP ---
cc: KATHYA MEDINA MD AKA: Bennie Sanchez DATE OF SURGERY 11/23/2016 PREOPERATIVE DIAGNOSES Left-sided hemopneumothorax. Left chest contusions. Severe lung injury. PROCEDURE Left chest tube placement. SURGEON MD Mady ANESTHESIA 1% Xylocaine. ESTIMATED BLOOD LOSS Minimal. PROCEDURE The patient prepped and draped in the usual fashion. Incision made in the mid-axillary line in about the sixth intercostal space and deepened down with a hemostat and the chest entered. There was jasso upon entrance. A large amount of blood escapes. A 32-[place] chest tube is placed, sutured in place with 0-silk, connected to Pleur-Evac about immediately 500 cc of dark blood is obtained, to continue at about 150 cc/hour after that. Once the patient is in the ICU, it is noted that there is a contained anterior pneumothorax with distension of the left pectoralis muscle. Therefore anterior 28-[place] chest tube was placed in a similar fashion and sutured with 0-silk and this decompresses the lung. The patient tolerated both procedures well. Kathya CORREA/CAMPOS /5:12 AM /12:42 PM
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
[2016-11-25] MEDS: fentaNYL DRIP 250 ML IV SCH (15:24)
[2016-11-26] VITALS (18 sets, daily range): BP systolic 92–124; BP diastolic 55–75; PULSE 90–128; RESP 18; TEMP 98–100.9; O2SAT 86–100
[2016-11-26] MEDS: ceFAZolin 2 GM PREMIX 50 ML IV SCH ×5 (01:12→23:36)
[2016-11-26] MEDS: PROPOFOL 1000 MG/100 ML INJ 100 ML IV SCH ×4 (01:20→18:33)
[2016-11-26] MEDS: fentaNYL DRIP 250 ML IV SCH ×2 (01:20→13:04)
[2016-11-26] MEDS: GENTAMICIN/SOD CHL 80 MG/100 ML IV SCH ×2 (01:47→10:00)
[2016-11-26] MEDS: RESP: ALBUTEROL 2.5 MG/IPRATROPIUM 0.5 MG NEB (SCH) NEB ×4 (03:35→19:40)
[2016-11-26] MEDS: PANTOPRAZOLE SODIUM 40 MG VIAL IV SCH (04:00)
[2016-11-26 05:28] LABS: AUTOMATED NEUTROPHIL # 10.9 TH/MM3 (1.8-7.7); BASOPHIL % 0.3 % (0.0-2.0); EOSINOPHIL # 0.3 TH/MM3 (0-0.4); EOSINOPHIL % 2.6 % (0.0-4.0); HEMATOCRIT 25.2 % (39.0-51.0); LYMPH % 6.9 % (9.0-44.0); LYMPHOCYTE # 0.9 TH/MM3 (1.0-4.8); MEAN CELL VOLUME 87.8 FL (80.0-100.0); MONO % 6.3 % (0.0-8.0); NEUT % 83.9 % (16.0-70.0); PLATELET COUNT 60 TH/MM3 (150-450); RED BLOOD COUNT 2.87 MIL/MM3 (4.50-5.90); RED CELL DISTRIBUTION WIDTH 15.2 % (11.6-17.2)
[2016-11-26 05:33] LABS: HEMO FLAGS AUTO DIFF
[2016-11-26 05:37] LABS: BLOOD GAS BASE EXCESS 3.8 mmol/L (-2-2); BLOOD GAS CARBOXYHEMOGLOBIN 1.5 % (0-4); BLOOD GAS HCO3 28 mmol/L (22-26); BLOOD GAS METHEMOGLOBIN 0.9 % (0-2); BLOOD GAS O2 HGB SATURATION 97 % (90-100); BLOOD GAS OXYGEN CONTENT 14.4 Vol % (12.0-20.0); BLOOD GAS PCO2 44 mmHg (38-42); BLOOD GAS PO2 143 mmHg (61-120); BLOOD GAS TOTAL HGB 10.4 G/DL (12.0-16.0); CRITICAL VALUE NO; OXYGEN DEVICE VENTILATOR; TEMP CORR TO 98.6
[2016-11-26 05:38] LABS: DRAW SITE ART LINE; FIO2 40 %; STAT NO; VENT SETTINGS PRVC/AC
[2016-11-26 05:57] LABS: BICARBONATE 30.4 MEQ/L (21.0-32.0); POTASSIUM 3.6 MEQ/L (3.5-5.1)
[2016-11-26] MEDS: LACTATED RINGER'S 1000 ML INJ 1,000 ML IV SCH ×2 (06:34→15:56)
[2016-11-26] MEDS ORDERED: GENTAMICIN SULFATE 80 MG/2 ML VIAL ONE ×2 (06:55)
--- NOTE | 2016-11-26 07:05 | PD.ORT.PN ---
Subjective Subjective Remarks s/p left femur fracture and open left elbow fracture intubated/sedated Objective Vitals Vital Signs Date Time Temp Pulse Resp B/P Pulse Ox O2 Delivery O2 Flow Rate FiO2 11/26/16 04:00 100.0 98 18 104/55 100 11/26/16 04:00 40 11/26/16 04:00 98 11/26/16 03:35 99 40 11/26/16 02:00 96 11/26/16 00:00 104 11/26/16 00:00 40 11/26/16 00:00 100.3 104 18 108/62 100 11/25/16 23:22 100 45 11/25/16 22:00 108 11/25/16 21:00 99 Mechanical Ventilator 30 11/25/16 20:00 113 11/25/16 20:00 40 11/25/16 20:00 100.5 113 18 121/68 100 11/25/16 19:39 100 50 11/25/16 18:00 112 11/25/16 16:00 50 11/25/16 16:00 109 11/25/16 16:00 100.6 109 18 107/58 100 11/25/16 15:59 100 50 11/25/16 14:00 107 11/25/16 12:00 100 11/25/16 12:00 99.3 100 18 100/58 99 11/25/16 12:00 50 11/25/16 11:14 100 50 11/25/16 10:46 100 50 11/25/16 10:12 100 50 11/25/16 10:10 50 11/25/16 10:00 100 11/25/16 08:00 50 11/25/16 08:00 99 Mechanical Ventilator 50 11/25/16 08:00 130 11/25/16 08:00 101.5 130 14 123/68 99 11/25/16 07:41 100 50 I/O 11/25/16 11/25/16 11/25/16 11/26/16 11/26/16 11/26/16 07:00 15:00 23:00 07:00 15:00 23:00 Intake Total 1386 ml 1112 ml 1257 ml Output Total 1100 ml 750 ml 835 ml Balance 286 ml 362 ml 422 ml Intake IV Total 1386 ml 1112 ml 1257 ml Output Urine Total 1000 ml 750 ml 675 ml Gastric Drainage Total 50 ml 0 ml Chest Tube Drainage Total 50 ml 160 ml # Bowel Movements 0 0 0 Result Diagram: 11/26/16 0500 11/26/16 0500 Imaging Last 24 hours Impressions Pelvis X-Ray 11/23/16344 Signed Impressions: Service Date/Time: Wednesday, November 23, 2016 03:22 - CONCLUSION: Unremarkable examination of the pelvis. Shmuel Callaway Jr., MD Head CT 11/23/16344 Signed Impressions: Service Date/Time: Wednesday, November 23, 2016 04:00 - CONCLUSION: 1. Right frontal soft tissue hematoma. 2. No acute intracranial abnormality. Shmuel Callaway Jr., MD Chest X-Ray 11/23/16344 Signed Impressions: Service Date/Time: Wednesday, November 23, 2016 03:22 - CONCLUSION: 1. Small left pneumothorax. 2. Tip of the endotracheal tube 1.5 cm down the right mainstem bronchus. 3. Bilateral pulmonary consolidations. These likely relate to pulmonary contusions. Shmuel Callaway Jr., MD Chest CT 11/23/16344 Signed Impressions: Service Date/Time: Wednesday, November 23, 2016 04:06 - CONCLUSION: 1. Large left hydropneumothorax despite left-sided chest tube. 2. Subcutaneous air tracking along the left chest and left neck. 3. Bilateral pulmonary consolidations more pronounced on the left. This likely relates to pulmonary contusion. 4. Left second through eighth rib fractures. 5. Left clavicular fracture. 6. Tip of the endotracheal tube 1.5 cm down the right mainstem bronchus. Shmuel Callaway Jr., MD Cervical Spine CT 11/23/16344 Signed Impressions: Service Date/Time: Wednesday, November 23, 2016 04:00 - CONCLUSION: 1. No fracture or dislocation. 2. Air tracking along the left neck. 3. See the CT of the thorax dictated separately. Shmuel Callaway Jr., MD Abdomen/Pelvis CT 11/23/16344 Signed Impressions: Service Date/Time: Wednesday, November 23, 2016 04:06 - CONCLUSION: 1. Small splenic laceration with a small amount of blood adjacent to the spleen. No ongoing hemorrhage appreciated. 2. See the CT of the chest reported separately. 3. Degraded study by breathing motion artifact. Shmuel Callaway Jr., MD Femur X-Ray 4/3/17 0000 Signed Impressions: Service Date/Time: Wednesday, November 23, 2016 03:22 - CONCLUSION: Comminuted fracture as detailed above. Shmuel Callaway Jr., MD Elbow X-Ray 11/23/16 Signed Impressions: Service Date/Time: Wednesday, November 23, 2016 03:22 - CONCLUSION: Fracture dislocation as detailed above. Shmuel Callaway Jr., MD Chest X-Ray 11/23/16 Signed Impressions: Service Date/Time: Wednesday, November 23, 2016 07:03 - CONCLUSION: 1. No definite pneumothorax. 2. No significant change compared to the prior exam. Jacky Thompson MD Chest X-Ray 11/23/16 Signed Impressions: Service Date/Time: Wednesday, November 23, 2016 04:33 - CONCLUSION: 1. Repositioning of the endotracheal tube. 2. Placement of second chest tube on the left. Shmuel Callaway Jr., MD Chest X-Ray 11/23/16 Signed Impressions: Service Date/Time: Wednesday, November 23, 2016 03:22 - CONCLUSION: 1. Tip of the endotracheal tube down the right mainstem bronchus for 1.5 cm. 2. Bilateral pulmonary contusions more pronounced on the left. 3. Left clavicular fracture. 4. Multiple left rib fractures. 5. Subcutaneous air. 6. No discernible pneumothorax. Shmuel Callaway Jr., MD Objective Remarks Patient is intubated and sedated. Examination of right upper extremity and right lower extremity reveals no obvious pain or deformity with motion. Motor and sensory exams are not possible. Examination of left leg reveals obvious deformity of his thigh. Thigh compartments are soft. He does have swelling of the thigh. Dorsalis pedis pulses palpable. +bucks traction Examination of left arm reveals that he is in a long-arm splint. Assessment & Plan Assessment and Plan 1) Left Femoral Shaft Fx 2) Left Open Elbow Fx with dislocation -surgery today Christos Adams Nov 26, 2016 07:05
[2016-11-26 07:50] LABS: PLATELET ESTIMATE SMEAR LOW (NORMAL); PLATELET MORPHOLOGY NORMAL (NORMAL); SCAN/DIFF AUTO DIFF CONFIRMED
--- NOTE | 2016-11-26 08:36 | RADRPT ---
EXAM DATE/TIME: 11/26/2016 08:10 [facility] COMPARISON: FEMUR LEFT (AP & LAT/2VWS), November 23, 2016, 3:22. INDICATIONS : Left femur fracture, ORIF done in operating room. MEDICAL HISTORY : None. SURGICAL HISTORY : None. ENCOUNTER: Subsequent ACUITY: 1 day PAIN SCORE: Non-responsive. LOCATION: Left middle femur. FINDINGS: 7 intraoperative spot images of the left femur. Comminuted femoral shaft fracture is seen. Intramedul olga nila with proximal and distal transfixing screws are in place. Alignment is near-anatomic. CONCLUSION: Intraoperative images showing femoral shaft fracture with hardware in place across the fracture. Zack Ramírez MD on November 26, 2016 at 8:33 Board Certified Radiologist. This report was verified electronically.
--- NOTE | 2016-11-26 08:51 | PD.OP ---
cc: Troy Platt MD Operative Report Date of Surgery: Nov 26, 2016 Preoperative Diagnosis: Closed left femur fracture, open left distal humerus fracture Postoperative Diagnosis: Procedure: Reduction and intramedullary nail fixation of left femur, irrigation and debridement of open left distal humerus fracture, complex wound closure left elbow 10 cm in length Surgeon: Troy Platt Ethanol Maintenance Mechanic(s): KSOTA Lee PA-C The surgical procedure was assisted by my physician secretary administrative assistant. My P.A. presence was necessary throughout this case for the manipulation and positioning of the surgical extremity. My P.A. was assisting me throughout the duration of this procedure. The skill set of a physician secretary administrative assistant was medically necessary to complete this procedure. During the surgical case the assembler surgical garment was working at the back table and the physician secretary administrative assistant was directly assisting me. Operation and Findings: Implants used: 10 mm x [360]mm Synthes femoral nail Plan of activity: Weight-bear as tolerated left leg, nonweightbearing left arm Patient was seen and evaluated preoperatively. The patient has comminuted left femur fracture and an open left distal humerus fracture. The risk and benefits of surgery were discussed in depth with the patients family to include bleeding , infection, nonunion, malunion, need for hip replacement, painful hardware, as well as medical competitions including blood clots, stroke, heart attack, and . Informed consent was obtained. Operative site was marked. Patient was brought to the operating room and placed on fracture table. IV sedation was administered by anesthesiologist. Timeout procedure was performed. Hip and leg were prepped with alcohol followed by DuraPrep and draped in the usual sterile fashion. IV antibiotics were given prior to incision. Procedure began with reduction of fracture. Traction was applied. The leg was manipulated to achieve reduction. Excellent reduction was achieved. Fluoroscopy was used to confirm reduction. A three inch incision was made proximal to the trochanter. Subcutaneous tissue was dissected bluntly. Guidepin was placed at the piriformis fossa and advanced into the femoral canal. Fluoroscopy confirmed appropriate guidepin placement. A opening reamer was placed over the guidepin. A long ball tipped guide pin was now placed down the femoral canal into the center of the distal femur. The fracture fragments were held in a reduced position while guidepin was placed. The nail length was now measured. Fluoroscopy confirmed appropriate guidepin placement. Flexible reamers were now passed over the guidepin to ream the intramedullary canal. The femoral nail was attached to the insertion handle. Nail was now placed over the guidepin into the femoral canal. Fluoroscopy confirmed appropriate nail placement. A second incision was made over the lateral thigh. Cannulas were placed through the insertion handle down to the femur. Using the insertion handle as a guide the proximal screw holes were drilled. Appropriate length screws were now placed. Traction was released and compression was applied. Next, using perfect table mountain technique two distal interlocking screws were placed. Screw holes were predrilled and screw lengths were measured. Final fluoroscopy revealed well aligned fracture with well-placed hardware. Incision was closed with 3-0 Vicryl and eugenia. Sterile dressings were applied. Next attention was turned towards the left arm. The left arm was now prepped with alcohol followed by Hibiclens and draped in the usual sterile fashion. The open fracture was now debrided. Skin subcutaneous tissue and fascia were sharply debrided with scalpel and rongeur. Overall the wound was relatively clean. The distal humerus was exposed. Bone was cleaned with curettes. After thorough debridement of the entire wound and elbow joint wound was copiously irrigated with sterile saline. Wound appeared to be clean at this time. Next attention was turned to wound closure. Subcutaneous tissues reapproximated with 3-0 PDS. The laceration was approximately 10 cm in length and stellate in nature. The edges of skin were now closed with 3-0 nylon. A combination of retention suture and vertical mattress sutures were utilized. Fluoroscopy was used to confirm that the elbow was concentrically reduced. A well molded well-padded splint was now applied. Patient transferred back to intensive care in critical condition. Troy Platt MD Nov 26, 2016 08:51
[2016-11-26 08:53] LABS: BLOOD GAS BASE EXCESS 1.1 mmol/L (-2-2); BLOOD GAS HCO3 26 mmol/L (22-26); BLOOD GAS METHEMOGLOBIN 1.4 % (0-2); BLOOD GAS O2 HGB SATURATION 95 % (90-100); BLOOD GAS OXYGEN CONTENT 11.1 Vol % (12.0-20.0); BLOOD GAS PCO2 52 mmHg (38-42); BLOOD GAS PO2 135 mmHg (61-120); BLOOD GAS TOTAL HGB 8.1 G/DL (12.0-16.0); CRITICAL VALUE YES; DRAW SITE ART LINE; OXYGEN DEVICE VENTILATOR; STAT YES; TEMP CORR TO 98.6
--- NOTE | 2016-11-26 09:11 | RADRPT ---
EXAM DATE/TIME: 11/26/2016 08:10 [facility] COMPARISON: ELBOW LEFT (1 VW), November 23, 2016, 3:22. INDICATIONS : Left elbow I&D. MEDICAL HISTORY : None. SURGICAL HISTORY : None. ENCOUNTER: Subsequent ACUITY: 1 day PAIN SCORE: Non-responsive. LOCATION: Left elbow. FINDINGS: 2 projection Limited evaluation of the left elbow reveals lateral epicondylar fracture with moderate displacement with configuration minimally altered from the comparison exam. CONCLUSION: Little change from previous Bennie Prieto MD on November 26, 2016 at 9:08 Board Certified Radiologist. This report was verified electronically.
[2016-11-26] MEDS ORDERED: fentaNYL CITRATE 250 MCG/5 ML AMP ONE (09:23)
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
[2016-11-26] MEDS: ACETAMINOPHEN 1000 MG/100 ML VIAL IV PRN (11:36)
[2016-11-26] MEDS: SODIUM CHLORIDE 0.9% FLUSH 10 ML FLUSH IV FLUSH SCH ×2 (11:37→21:00)
[2016-11-26] MEDS: BACITRACIN TOP OINT 15 GM TUBE TOPICAL SCH ×2 (11:37→21:00)
[2016-11-26] MEDS: CHLORHEXIDINE 0.12% (ORAL KIT) 15 ML CUP MT SCH ×2 (11:37→20:00)
[2016-11-26] MEDS: LACTULOSE SYRUP 20 GM/30 ML CUP PO SCH (11:37)
[2016-11-26 12:12] LABS: BLOOD GAS BASE EXCESS 1.9 mmol/L (-2-2); BLOOD GAS CARBOXYHEMOGLOBIN 1.4 % (0-4); BLOOD GAS HCO3 26 mmol/L (22-26); BLOOD GAS O2 HGB SATURATION 98 % (90-100); BLOOD GAS OXYGEN CONTENT 12.5 Vol % (12.0-20.0); BLOOD GAS PCO2 43 mmHg (38-42); BLOOD GAS PO2 278 mmHg (61-120); BLOOD GAS TOTAL HGB 8.6 G/DL (12.0-16.0); CRITICAL VALUE NO; OXYGEN DEVICE VENTILATOR; TEMP CORR TO 98.6
[2016-11-26 12:13] LABS: DRAW SITE ART LINE; FIO2 65 %; STAT NO
[2016-11-26] MEDS: GENTAMICIN 80 MG PREMIX 100 ML IV SCH ×2 (15:57→23:36)
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
[2016-11-27] VITALS (20 sets, daily range): BP systolic 99–128; BP diastolic 53–64; PULSE 82–110; RESP 16–18; TEMP 98.6–100.9; O2SAT 94–100
[2016-11-27] MEDS: PROPOFOL 1000 MG/100 ML INJ 100 ML IV SCH ×5 (01:47→15:49)
[2016-11-27] MEDS: fentaNYL DRIP 250 ML IV SCH ×2 (02:29→09:39)
[2016-11-27] MEDS: LACTATED RINGER'S 1000 ML INJ 1,000 ML IV SCH ×3 (02:32→22:02)
[2016-11-27] MEDS: RESP: ALBUTEROL 2.5 MG/IPRATROPIUM 0.5 MG NEB (SCH) NEB ×4 (04:07→21:17)
--- NOTE | 2016-11-27 04:11 | RADRPT ---
EXAM DATE/TIME: 11/27/2016 03:48 [facility] COMPARISON: CHEST SINGLE AP, November 26, 2016, 10:06. INDICATIONS : Evaluate for pneumothorax. MEDICAL HISTORY : None. SURGICAL HISTORY : None. ENCOUNTER: Subsequent ACUITY: 4 - 6 days PAIN SCORE: Non-responsive. LOCATION: Bilateral chest FINDINGS: There is improvement in the left lung infiltrate diffusely and focal infiltrate in the right lung. De Oliveira bcutaneous emphysema has not changed. ET tube, and NG tube have not changed. Chest tubes are present on the left side. No definite pneumothorax is seen for technique. The rest of the examination has not significantly changed and multiple fractures are again seen. CONCLUSION: Improvement in aeration of the lungs. Osiris Solorzano MD on November 27, 2016 at 4:08 Board Certified Radiologist. This report was verified electronically.
[2016-11-27] MEDS: PANTOPRAZOLE SODIUM 40 MG VIAL IV SCH (04:38)
[2016-11-27 05:20] LABS: AUTOMATED NEUTROPHIL # 7.9 TH/MM3 (1.8-7.7); BASOPHIL % 0.2 % (0.0-2.0); EOSINOPHIL # 0.4 TH/MM3 (0-0.4); HEMATOCRIT 21.7 % (39.0-51.0); MEAN CORPUSCULAR HEMOGLOBIN 29.6 PG (27.0-34.0); MEAN CORPUSCULAR HGB CONC 33.3 % (32.0-36.0); MONO % 7.9 % (0.0-8.0); NEUT % 77.9 % (16.0-70.0); PLATELET COUNT 63 TH/MM3 (150-450); RED BLOOD COUNT 2.44 MIL/MM3 (4.50-5.90); RED CELL DISTRIBUTION WIDTH 14.9 % (11.6-17.2); WHITE BLOOD COUNT 10.1 TH/MM3 (4.0-11.0)
[2016-11-27 05:29] LABS: BLOOD GAS BASE EXCESS 3.1 mmol/L (-2-2); BLOOD GAS CARBOXYHEMOGLOBIN 1.5 % (0-4); BLOOD GAS HCO3 27 mmol/L (22-26); BLOOD GAS O2 HGB SATURATION 97 % (90-100); BLOOD GAS OXYGEN CONTENT 10.4 Vol % (12.0-20.0); BLOOD GAS PCO2 37 mmHg (38-42); BLOOD GAS PO2 204 mmHg (61-120); BLOOD GAS TOTAL HGB 7.3 G/DL (12.0-16.0); CRITICAL VALUE NO; OXYGEN DEVICE VENTILATOR; TEMP CORR TO 98.6
[2016-11-27 05:30] LABS: DRAW SITE ART LINE; FIO2 50 %; STAT NO; VENT SETTINGS PRVC/AC
[2016-11-27 05:45] LABS: ALKALINE PHOSPHATASE 58 U/L (45-117); ALT (GPT) 39 U/L (12-78); ANION GAP 7 MEQ/L (5-15); AST (GOT) 86 U/L (15-37); BICARBONATE 27.8 MEQ/L (21.0-32.0); BLOOD UREA NITROGEN 11 MG/DL (7-18); CHLORIDE 110 MEQ/L (98-107); GLOMERULAR FILTRATION RATE 157 ML/MIN (>89); POTASSIUM 3.2 MEQ/L (3.5-5.1); SODIUM (NA) 145 MEQ/L (136-145); TOTAL BILIRUBIN ADULT 0.9 MG/DL (0.2-1.0)
[2016-11-27 05:47] LABS: HEMO FLAGS AUTO DIFF
[2016-11-27 06:57] LABS: BANDS 20 % (0-6); EOSINOPHILS 1 % (0-4); NEUTROPHIL # MANUAL DIFF 8.8 TH/MM3 (1.8-7.7); POLYS (SEG NEUTROPHILS) 67 % (16-70); WBC DIFF SAMPLE 100
[2016-11-27 06:59] LABS: PLATELET ESTIMATE SMEAR LOW (NORMAL); PLATELET MORPHOLOGY NORMAL (NORMAL); SCAN/DIFF FINAL DIFF MANUAL
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
[2016-11-27] MEDS ORDERED: SODIUM CHLOR 0.9% 250 ML INJ 250 ML IV ONE (07:15)
--- NOTE | 2016-11-27 07:18 | PD.ORT.PN ---
Subjective Subjective Remarks POD 1 s/p IMN left femur POD 1 s/p I&D with wound closure and splinting left elbow intubated/sedated Objective Vitals Vital Signs Date Time Temp Pulse Resp B/P Pulse Ox O2 Delivery O2 Flow Rate FiO2 11/27/16 06:00 103 11/27/16 04:08 99 50 11/27/16 04:00 103 11/27/16 04:00 98.6 103 18 100/53 100 11/27/16 04:00 50 11/27/16 02:00 101 11/27/16 01:20 100 50 11/27/16 00:00 50 11/27/16 00:00 98.6 91 18 99/60 100 11/27/16 00:00 91 11/26/16 22:08 100 50 11/26/16 22:00 91 11/26/16 20:00 98.2 90 18 92/56 100 11/26/16 20:00 90 11/26/16 20:00 50 11/26/16 19:40 100 50 11/26/16 19:00 100 Mechanical Ventilator 50 11/26/16 18:00 93 11/26/16 16:00 101 11/26/16 16:00 99.5 101 18 114/55 99 11/26/16 16:00 50 11/26/16 15:27 100 50 11/26/16 14:00 96 11/26/16 12:00 100.9 128 18 106/56 100 11/26/16 12:00 128 11/26/16 12:00 50 11/26/16 11:45 50 11/26/16 10:00 105 11/26/16 09:49 86 50 11/26/16 09:30 102 11/26/16 09:15 40 11/26/16 09:15 98.0 102 18 124/75 100 I/O 11/26/16 11/26/16 11/26/16 11/27/16 11/27/16 11/27/16 07:00 15:00 23:00 07:00 15:00 23:00 Intake Total 1295 ml 756 ml 1102 ml 1334 ml Output Total 510 ml 770 ml 550 ml 400 ml Balance 785 ml -14 ml 552 ml 934 ml Intake IV Total 1295 ml 656 ml 1102 ml 1334 ml Other 100 ml Output Urine Total 450 ml 600 ml 450 ml 400 ml Gastric Drainage Total 20 ml 0 ml Chest Tube Drainage Total 40 ml 170 ml 100 ml 0 ml # Bowel Movements 0 0 0 Result Diagram: 11/27/16 0500 11/27/16 0500 Imaging Last 24 hours Impressions Pelvis X-Ray 11/23/16344 Signed Impressions: Service Date/Time: Wednesday, November 23, 2016 03:22 - CONCLUSION: Unremarkable examination of the pelvis. Shmuel Callaway Jr., MD Head CT 11/23/16344 Signed Impressions: Service Date/Time: Wednesday, November 23, 2016 04:00 - CONCLUSION: 1. Right frontal soft tissue hematoma. 2. No acute intracranial abnormality. Shmuel Callaway Jr., MD Chest X-Ray 11/23/16344 Signed Impressions: Service Date/Time: Wednesday, November 23, 2016 03:22 - CONCLUSION: 1. Small left pneumothorax. 2. Tip of the endotracheal tube 1.5 cm down the right mainstem bronchus. 3. Bilateral pulmonary consolidations. These likely relate to pulmonary contusions. Shmuel Callaway Jr., MD Chest CT 11/23/16344 Signed Impressions: Service Date/Time: Wednesday, November 23, 2016 04:06 - CONCLUSION: 1. Large left hydropneumothorax despite left-sided chest tube. 2. Subcutaneous air tracking along the left chest and left neck. 3. Bilateral pulmonary consolidations more pronounced on the left. This likely relates to pulmonary contusion. 4. Left second through eighth rib fractures. 5. Left clavicular fracture. 6. Tip of the endotracheal tube 1.5 cm down the right mainstem bronchus. Shmuel Callaway Jr., MD Cervical Spine CT 11/23/16344 Signed Impressions: Service Date/Time: Wednesday, November 23, 2016 04:00 - CONCLUSION: 1. No fracture or dislocation. 2. Air tracking along the left neck. 3. See the CT of the thorax dictated separately. Shmuel Callaway Jr., MD Abdomen/Pelvis CT 11/23/16344 Signed Impressions: Service Date/Time: Wednesday, November 23, 2016 04:06 - CONCLUSION: 1. Small splenic laceration with a small amount of blood adjacent to the spleen. No ongoing hemorrhage appreciated. 2. See the CT of the chest reported separately. 3. Degraded study by breathing motion artifact. Shmuel Callaway Jr., MD Femur X-Ray 11/23/16 0000 Signed Impressions: Service Date/Time: Wednesday, November 23, 2016 03:22 - CONCLUSION: Comminuted fracture as detailed above. Shmuel Callaway Jr., MD Elbow X-Ray 11/23/16 0000 Signed Impressions: Service Date/Time: Wednesday, November 23, 2016 03:22 - CONCLUSION: Fracture dislocation as detailed above. Shmuel Callaway Jr., MD Chest X-Ray 11/23/16 0000 Signed Impressions: Service Date/Time: Wednesday, November 23, 2016 07:03 - CONCLUSION: 1. No definite pneumothorax. 2. No significant change compared to the prior exam. Jacky Thompson MD Chest X-Ray 11/23/16 0000 Signed Impressions: Service Date/Time: Wednesday, November 23, 2016 04:33 - CONCLUSION: 1. Repositioning of the endotracheal tube. 2. Placement of second chest tube on the left. Shmuel Callaway Jr., MD Chest X-Ray 11/23/16 0000 Signed Impressions: Service Date/Time: Wednesday, November 23, 2016 03:22 - CONCLUSION: 1. Tip of the endotracheal tube down the right mainstem bronchus for 1.5 cm. 2. Bilateral pulmonary contusions more pronounced on the left. 3. Left clavicular fracture. 4. Multiple left rib fractures. 5. Subcutaneous air. 6. No discernible pneumothorax. Shmuel Callaway Jr., MD Objective Remarks LUE: +long arm splint. good cap refill. LLE: dressings clean and dry. distal femur dressing with mild bloody drainage. + Cap refill Assessment & Plan Assessment and Plan 1) Left Femoral Shaft Fx s/p IMN - POD 1 2) Left Open Elbow Fx with dislocation s/p reduction with wound closure - POD 1 -NWB LLE and LUE -maintain left elbow splint at all times -daily dressing changes to left leg with xeroform/4x4/SIMONE wraps and tape Christos Adams Nov 27, 2016 07:18
[2016-11-27] MEDS: ceFAZolin 2 GM PREMIX 50 ML IV SCH ×2 (09:03→15:49)
[2016-11-27] MEDS: GENTAMICIN 80 MG PREMIX 100 ML IV SCH ×3 (09:03→22:01)
[2016-11-27] MEDS: CHLORHEXIDINE 0.12% (ORAL KIT) 15 ML CUP MT SCH ×2 (09:04→20:00)
[2016-11-27] MEDS: ENOXAPARIN SODIUM 30 MG/0.3 ML SYRINGE SQ SCH ×2 (09:04→20:00)
[2016-11-27] MEDS: BACITRACIN TOP OINT 15 GM TUBE TOPICAL SCH ×2 (09:05→22:02)
[2016-11-27] MEDS: LACTULOSE SYRUP 20 GM/30 ML CUP PO SCH (09:05)
[2016-11-27] MEDS: SODIUM CHLORIDE 0.9% FLUSH 10 ML FLUSH IV FLUSH SCH ×2 (09:05→21:00)
[2016-11-27] MEDS: POTASSIUM CHLOR 40 MEQ PREMIX 100 ML IV PRN ×2 (11:20→13:50)
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
[2016-11-27 20:45] LABS: REVIEW FLAG FINAL
[2016-11-28] VITALS (18 sets, daily range): BP systolic 112–136; BP diastolic 54–96; PULSE 80–100; RESP 16; TEMP 99.7–100.8; O2SAT 96–100
[2016-11-28] MEDS: ceFAZolin 2 GM PREMIX 50 ML IV SCH ×4 (00:58→23:18)
[2016-11-28] MEDS: PROPOFOL 1000 MG/100 ML INJ 100 ML IV SCH ×5 (00:58→22:05)
[2016-11-28] MEDS: fentaNYL DRIP 250 ML IV SCH (01:00)
[2016-11-28] MEDS: RESP: ALBUTEROL 2.5 MG/IPRATROPIUM 0.5 MG NEB (SCH) NEB ×2 (03:25→07:57)
[2016-11-28] MEDS: PANTOPRAZOLE SODIUM 40 MG VIAL IV SCH (04:05)
[2016-11-28 04:50] LABS: ALT (GPT) 32 U/L (12-78); ANION GAP 8 MEQ/L (5-15); AST (GOT) 65 U/L (15-37); BICARBONATE 27.5 MEQ/L (21.0-32.0); BLOOD UREA NITROGEN 13 MG/DL (7-18); CHLORIDE 109 MEQ/L (98-107); GLOMERULAR FILTRATION RATE 154 ML/MIN (>89); POTASSIUM 3.5 MEQ/L (3.5-5.1); SODIUM (NA) 144 MEQ/L (136-145)
[2016-11-28 04:55] LABS: AUTOMATED NEUTROPHIL # 8.6 TH/MM3 (1.8-7.7); BASOPHIL % 0.3 % (0.0-2.0); EOSINOPHIL # 0.3 TH/MM3 (0-0.4); EOSINOPHIL % 2.8 % (0.0-4.0); HEMATOCRIT 26.2 % (39.0-51.0); MEAN CELL VOLUME 87.5 FL (80.0-100.0); MEAN CORPUSCULAR HEMOGLOBIN 29.5 PG (27.0-34.0); MEAN CORPUSCULAR HGB CONC 33.7 % (32.0-36.0); MONO % 11.3 % (0.0-8.0); NEUT % 76.6 % (16.0-70.0); PLATELET COUNT 80 TH/MM3 (150-450); RED CELL DISTRIBUTION WIDTH 14.9 % (11.6-17.2); WHITE BLOOD COUNT 11.2 TH/MM3 (4.0-11.0)
[2016-11-28 04:56] LABS: ALKALINE PHOSPHATASE 94 U/L (45-117); TOTAL BILIRUBIN ADULT 1.2 MG/DL (0.2-1.0)
[2016-11-28 05:15] LABS: HEMO FLAGS AUTO DIFF
[2016-11-28] MEDS: POTASSIUM CHLOR 20 MEQ PREMIX 100 ML IV PRN ×2 (05:46→09:28)
[2016-11-28] MEDS: GENTAMICIN 80 MG PREMIX 100 ML IV SCH ×3 (05:47→22:05)
--- NOTE | 2016-11-28 06:16 | RADRPT ---
EXAM DATE/TIME: 11/28/2016 05:41 [facility] COMPARISON: CHEST SINGLE AP, November 27, 2016, 3:48. INDICATIONS : Follow up trauma. Pneumothorax and respiratory status. MEDICAL HISTORY : None. SURGICAL HISTORY : None. ENCOUNTER: Subsequent ACUITY: 3 days PAIN SCORE: Non-responsive. LOCATION: Bilateral chest FINDINGS: 2 left-sided chest tubes are present. A pneumothorax is not seen. ET tube and NG tube are well placed . There is patchy consolidation seen in the left lung and lateral right midlung likely related to con tusions. Left rib fractures and left clavicle fracture are present. The heart size is normal. CONCLUSION: 1. No pneumothorax is seen. 2. Bilateral suspected areas of contusion. 3. Left rib and clavicle fractures. Bennie Mendez MD on November 28, 2016 at 6:13 Board Certified Radiologist. This report was verified electronically.
[2016-11-28] MEDS: CHLORHEXIDINE 0.12% (ORAL KIT) 15 ML CUP MT SCH ×2 (08:00→20:05)
[2016-11-28] MEDS: LACTATED RINGER'S 1000 ML INJ 1,000 ML IV SCH (09:00)
[2016-11-28] MEDS: BACITRACIN TOP OINT 15 GM TUBE TOPICAL SCH ×2 (09:00→20:05)
[2016-11-28] MEDS: LACTULOSE SYRUP 20 GM/30 ML CUP PO SCH (09:13)
[2016-11-28] MEDS: ENOXAPARIN SODIUM 30 MG/0.3 ML SYRINGE SQ SCH ×2 (09:13→20:05)
[2016-11-28] MEDS: SODIUM CHLORIDE 0.9% FLUSH 10 ML FLUSH IV FLUSH SCH ×2 (09:13→20:05)
[2016-11-28 10:10] LABS: BANDS 19 % (0-6); EOSINOPHILS 1 % (0-4); MYELOCYTES 1 % (0-0); POLYS (SEG NEUTROPHILS) 60 % (16-70); WBC DIFF SAMPLE 100
[2016-11-28 10:11] LABS: PLATELET ESTIMATE SMEAR LOW (NORMAL); PLATELET MORPHOLOGY NORMAL (NORMAL); SCAN/DIFF FINAL DIFF MANUAL
[2016-11-28] MEDS ORDERED: FUROSEMIDE 40 MG/4 ML VIAL IV PUSH ONE (11:00)
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
[2016-11-28] MEDS: ACETAMINOPHEN 1000 MG/100 ML VIAL IV PRN (20:29)
[2016-11-29] VITALS (18 sets, daily range): BP systolic 121–138; BP diastolic 59–68; PULSE 82–96; RESP 16; TEMP 100–101.5; O2SAT 96–100
[2016-11-29] MEDS: PROPOFOL 1000 MG/100 ML INJ 100 ML IV SCH ×6 (01:32→23:19)
[2016-11-29] MEDS: fentaNYL DRIP 250 ML IV SCH ×2 (01:32→18:47)
[2016-11-29 03:41] LABS: AUTOMATED NEUTROPHIL # 8.5 TH/MM3 (1.8-7.7); BASOPHIL % 0.1 % (0.0-2.0); EOSINOPHIL # 0.5 TH/MM3 (0-0.4); EOSINOPHIL % 4.1 % (0.0-4.0); HEMATOCRIT 25.1 % (39.0-51.0); HEMO FLAGS DIFF FINAL; LYMPH % 7.2 % (9.0-44.0); LYMPHOCYTE # 0.8 TH/MM3 (1.0-4.8); MEAN CELL VOLUME 86.9 FL (80.0-100.0); MEAN CORPUSCULAR HEMOGLOBIN 30.1 PG (27.0-34.0); MEAN CORPUSCULAR HGB CONC 34.6 % (32.0-36.0); MONO % 11.9 % (0.0-8.0); NEUT % 76.7 % (16.0-70.0); PLATELET COUNT 118 TH/MM3 (150-450); RED BLOOD COUNT 2.89 MIL/MM3 (4.50-5.90); WHITE BLOOD COUNT 11.1 TH/MM3 (4.0-11.0)
[2016-11-29] MEDS: PANTOPRAZOLE SODIUM 40 MG VIAL IV SCH (04:36)
[2016-11-29] MEDS: ACETAMINOPHEN 1000 MG/100 ML VIAL IV PRN ×3 (05:22→23:29)
[2016-11-29] MEDS: GENTAMICIN 80 MG PREMIX 100 ML IV SCH (05:23)
[2016-11-29] MEDS: ENOXAPARIN SODIUM 30 MG/0.3 ML SYRINGE SQ SCH ×2 (08:40→20:54)
[2016-11-29] MEDS: CHLORHEXIDINE 0.12% (ORAL KIT) 15 ML CUP MT SCH ×2 (08:40→20:54)
[2016-11-29] MEDS: SODIUM CHLORIDE 0.9% FLUSH 10 ML FLUSH IV FLUSH SCH ×2 (08:41→20:54)
[2016-11-29] MEDS: BACITRACIN TOP OINT 15 GM TUBE TOPICAL SCH ×2 (08:41→20:54)
[2016-11-29] MEDS: ceFAZolin 2 GM PREMIX 50 ML IV SCH (08:41)
[2016-11-29] MEDS: LACTULOSE SYRUP 20 GM/30 ML CUP PO SCH (08:41)
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
[2016-11-29] MEDS ORDERED: FUROSEMIDE 40 MG/4 ML VIAL IV PUSH ONE (15:30)
[2016-11-29] MEDS ORDERED: VANCOMYCIN 1,000 MG/NS 250 ML IV ONE ×4 (18:15→20:00)
[2016-11-29] MEDS ORDERED: Vancomycin Consult Pharmacy 1 EA OTHER SCH (18:15)
[2016-11-29] MEDS: PIPERACIL-TAZO 4.5 GM PREMIX 100 ML IV SCH (18:48)
[2016-11-30] VITALS (21 sets, daily range): BP systolic 121–149; BP diastolic 61–78; PULSE 78–97; RESP 16–19; TEMP 98.6–101.5; O2SAT 92–100
[2016-11-30] MEDS: PIPERACIL-TAZO 4.5 GM PREMIX 100 ML IV SCH ×3 (01:51→17:45)
[2016-11-30] MEDS: PANTOPRAZOLE SODIUM 40 MG VIAL IV SCH (03:25)
[2016-11-30] MEDS: PROPOFOL 1000 MG/100 ML INJ 100 ML IV SCH ×6 (03:26→18:34)
[2016-11-30] MEDS ORDERED: VANCOMYCIN INJ 1,600 MG in SODIUM CHLORID 0.9% 500 ML INJ 500 ML IV SCH (05:00)
[2016-11-30 05:05] LABS: HEMATOCRIT 25.7 % (39.0-51.0); MEAN CORPUSCULAR HEMOGLOBIN 30.4 PG (27.0-34.0); MEAN CORPUSCULAR HGB CONC 34.5 % (32.0-36.0); PLATELET COUNT 165 TH/MM3 (150-450); RED BLOOD COUNT 2.92 MIL/MM3 (4.50-5.90); RED CELL DISTRIBUTION WIDTH 14.9 % (11.6-17.2); REVIEW FLAG FINAL; WHITE BLOOD COUNT 10.4 TH/MM3 (4.0-11.0)
[2016-11-30 05:17] LABS: ALT (GPT) 28 U/L (12-78); ANION GAP 7 MEQ/L (5-15); AST (GOT) 44 U/L (15-37); BICARBONATE 29.6 MEQ/L (21.0-32.0); BLOOD UREA NITROGEN 15 MG/DL (7-18); CHLORIDE 104 MEQ/L (98-107); GLOMERULAR FILTRATION RATE 141 ML/MIN (>89); MAGNESIUM 2.2 MG/DL (1.5-2.5); POTASSIUM 3.5 MEQ/L (3.5-5.1); SODIUM (NA) 141 MEQ/L (136-145)
[2016-11-30 05:19] LABS: ALKALINE PHOSPHATASE 116 U/L (45-117)
[2016-11-30 05:22] LABS: BLOOD GAS BASE EXCESS 5.3 mmol/L (-2-2); BLOOD GAS CARBOXYHEMOGLOBIN 1.6 % (0-4); BLOOD GAS HCO3 30 mmol/L (22-26); BLOOD GAS METHEMOGLOBIN 0.9 % (0-2); BLOOD GAS O2 HGB SATURATION 96 % (90-100); BLOOD GAS OXYGEN CONTENT 12.1 Vol % (12.0-20.0); BLOOD GAS PCO2 46 mmHg (38-42); BLOOD GAS PO2 124 mmHg (61-120); BLOOD GAS TOTAL HGB 8.7 G/DL (12.0-16.0); CRITICAL VALUE NO; FIO2 50 %; OXYGEN DEVICE VENTILATOR; TEMP CORR TO 98.6
[2016-11-30 05:23] LABS: DRAW SITE ALINE; STAT NO
--- NOTE | 2016-11-30 05:47 | RADRPT ---
EXAM DATE/TIME: 11/30/2016 04:14 [facility] COMPARISON: CHEST SINGLE AP, November 28, 2016, 5:41. INDICATIONS : Shortness of breath, possible pulmonary disease. MEDICAL HISTORY : Hypertension. Leukemia. Smoker. SURGICAL HISTORY : None. ENCOUNTER: Subsequent ACUITY: 1 week PAIN SCORE: Non-responsive. LOCATION: Bilateral chest FINDINGS: A single view of the chest demonstrates patchy bilateral airspace disease including increased density along the right lower lobe peripherally. 2 left-sided chest tubes are again seen without pneumothora x. The cardiomediastinal contours are unremarkable. Left-sided rib fractures and clavicle fracture ag ain seen. CONCLUSION: Bilateral patchy opacities worsening along the periphery of the right lower lobe and right midlung. 2 left-sided chest tubes without pneumothorax. Gavino Mauricio MD on November 30, 2016 at 5:43 Board Certified Radiologist. This report was verified electronically.
--- NOTE | 2016-11-30 07:00 | PD.ORT.PN ---
Subjective Subjective Remarks POD 4 s/p IMN left femur POD 4 s/p I&D with wound closure and splinting left elbow intubated/sedated Objective Vitals Vital Signs Date Time Temp Pulse Resp B/P Pulse Ox O2 Delivery O2 Flow Rate FiO2 11/30/16 06:00 94 11/30/16 04:11 99 50 11/30/16 04:00 84 11/30/16 04:00 50 11/30/16 04:00 100.2 84 16 130/66 99 140/72 11/30/16 02:00 80 11/30/16 00:07 99 50 11/30/16 00:00 89 11/30/16 00:00 101.5 95 19 149/78 99 133/66 11/30/16 00:00 50 11/29/16 22:00 82 11/29/16 20:04 96 50 11/29/16 20:00 85 11/29/16 20:00 100.7 82 16 136/68 99 130/68 11/29/16 20:00 50 11/29/16 19:00 99 Mechanical Ventilator 50 11/29/16 18:00 96 11/29/16 16:00 101.5 90 16 138/68 99 134/68 11/29/16 16:00 50 11/29/16 16:00 90 11/29/16 15:26 99 50 11/29/16 14:00 91 11/29/16 12:00 50 11/29/16 12:00 90 11/29/16 12:00 100.8 90 16 130/67 99 132/66 11/29/16 11:13 99 50 11/29/16 10:00 87 11/29/16 08:00 85 11/29/16 08:00 50 11/29/16 08:00 100.4 86 16 121/59 99 126/60 11/29/16 07:29 99 50 11/29/16 07:00 99 Mechanical Ventilator 50 I/O 11/29/16 11/29/16 11/29/16 11/30/16 11/30/16 11/30/16 07:00 15:00 23:00 07:00 15:00 23:00 Intake Total 992 ml 819 ml 1445 ml 945 ml Output Total 1120 ml 830 ml 2430 ml 730 ml Balance -128 ml -11 ml -985 ml 215 ml Intake IV Total 558 ml 380 ml 992 ml 533 ml Tube Feeding 334 ml 439 ml 453 ml 412 ml Other 100 ml Output Urine Total 1000 ml 800 ml 2400 ml 700 ml Chest Tube Drainage Total 120 ml 30 ml 30 ml 30 ml # Bowel Movements 0 0 0 0 Result Diagram: 11/30/164 11/30/16423 Imaging Last 24 hours Impressions Pelvis X-Ray 11/23/16344 Signed Impressions: Service Date/Time: Wednesday, November 23, 2016 03:22 - CONCLUSION: Unremarkable examination of the pelvis. Shmuel Callaway Jr., MD Head CT 11/23/16344 Signed Impressions: Service Date/Time: Wednesday, November 23, 2016 04:00 - CONCLUSION: 1. Right frontal soft tissue hematoma. 2. No acute intracranial abnormality. Shmuel Callaway Jr., MD Chest X-Ray 11/23/16344 Signed Impressions: Service Date/Time: Wednesday, November 23, 2016 03:22 - CONCLUSION: 1. Small left pneumothorax. 2. Tip of the endotracheal tube 1.5 cm down the right mainstem bronchus. 3. Bilateral pulmonary consolidations. These likely relate to pulmonary contusions. Shmuel Callaway Jr., MD Chest CT 11/23/16344 Signed Impressions: Service Date/Time: Wednesday, November 23, 2016 04:06 - CONCLUSION: 1. Large left hydropneumothorax despite left-sided chest tube. 2. Subcutaneous air tracking along the left chest and left neck. 3. Bilateral pulmonary consolidations more pronounced on the left. This likely relates to pulmonary contusion. 4. Left second through eighth rib fractures. 5. Left clavicular fracture. 6. Tip of the endotracheal tube 1.5 cm down the right mainstem bronchus. Shmuel Callaway Jr., MD Cervical Spine CT 11/23/16344 Signed Impressions: Service Date/Time: Wednesday, November 23, 2016 04:00 - CONCLUSION: 1. No fracture or dislocation. 2. Air tracking along the left neck. 3. See the CT of the thorax dictated separately. Shmuel Callaway Jr., MD Abdomen/Pelvis CT 11/23/16344 Signed Impressions: Service Date/Time: Wednesday, November 23, 2016 04:06 - CONCLUSION: 1. Small splenic laceration with a small amount of blood adjacent to the spleen. No ongoing hemorrhage appreciated. 2. See the CT of the chest reported separately. 3. Degraded study by breathing motion artifact. Shmuel Callaway Jr., MD Femur X-Ray 11/23/16 0000 Signed Impressions: Service Date/Time: Wednesday, November 23, 2016 03:22 - CONCLUSION: Comminuted fracture as detailed above. Shmuel Callaway Jr., MD Elbow X-Ray 11/23/16 0000 Signed Impressions: Service Date/Time: Wednesday, November 23, 2016 03:22 - CONCLUSION: Fracture dislocation as detailed above. Shmuel Callaway Jr., MD Chest X-Ray 11/23/16 0000 Signed Impressions: Service Date/Time: Wednesday, November 23, 2016 07:03 - CONCLUSION: 1. No definite pneumothorax. 2. No significant change compared to the prior exam. Jacky Thompson MD Chest X-Ray 11/23/16 Signed Impressions: Service Date/Time: Wednesday, November 23, 2016 04:33 - CONCLUSION: 1. Repositioning of the endotracheal tube. 2. Placement of second chest tube on the left. Shmuel Callaway Jr., MD Chest X-Ray 11/23/16 0000 Signed Impressions: Service Date/Time: Wednesday, November 23, 2016 03:22 - CONCLUSION: 1. Tip of the endotracheal tube down the right mainstem bronchus for 1.5 cm. 2. Bilateral pulmonary contusions more pronounced on the left. 3. Left clavicular fracture. 4. Multiple left rib fractures. 5. Subcutaneous air. 6. No discernible pneumothorax. Shmuel Callaway Jr., MD Objective Remarks LUE: +long arm splint. good cap refill. LLE: dressings clean and dry. distal femur dressing with mild bloody drainage. + Cap refill Assessment & Plan Assessment and Plan 1) Left Femoral Shaft Fx s/p IMN - POD 4 2) Left Open Elbow Fx with dislocation s/p reduction with wound closure - POD 4 -NWB LLE and LUE -maintain left elbow splint at all times -daily dressing changes to left leg with xeroform/4x4/SIMONE wraps and tape -npo after MN -sign consents -will reorder CT scan of elbow today. need CT scan done prior to surgery. if CT scan unable to be done, will postpone surgery -hold lovenox after AM dose Christos Adams Nov 30, 2016 07:00
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
[2016-11-30] MEDS: fentaNYL DRIP 250 ML IV SCH ×2 (07:20→19:25)
[2016-11-30] MEDS: SODIUM CHLORIDE 0.9% FLUSH 10 ML FLUSH IV FLUSH SCH ×2 (07:58→19:25)
[2016-11-30] MEDS: BACITRACIN TOP OINT 15 GM TUBE TOPICAL SCH ×2 (07:58→19:25)
[2016-11-30] MEDS: ACETAMINOPHEN 1000 MG/100 ML VIAL IV PRN ×3 (07:58→21:38)
[2016-11-30] MEDS: LACTULOSE SYRUP 20 GM/30 ML CUP PO SCH (07:58)
[2016-11-30] MEDS: CHLORHEXIDINE 0.12% (ORAL KIT) 15 ML CUP MT SCH ×2 (07:59→19:24)
--- NOTE | 2016-11-30 12:04 | RADRPT ---
EXAM DATE/TIME: 11/30/2016 11:31 [facility] COMPARISON: CHEST SINGLE AP, November 30, 2016, 4:14. INDICATIONS : Post central line placement. MEDICAL HISTORY : Hypertension. Leukemia. Smoker. SURGICAL HISTORY : None. ENCOUNTER: Subsequent ACUITY: 1 week PAIN SCORE: Non-responsive. LOCATION: Bilateral chest FINDINGS: Portable AP view of the chest demonstrates a normal-sized cardiac silhouette. ETT, NG tube, and a lef t chest tube remain present. One of the left chest tubes has been removed. A left subclavian central line has been placed and the distal tip is in the SVC. No pneumothorax is visualized. There is mild a irspace consolidation peripherally in the right mid and lower lung zone interstitial opacity on the l eft. No pleural effusion is seen. CONCLUSION: 1. Left subclavian central line distal tip is in the SVC. No pneumothorax is visualized. 2. Otherwise, no significant interval change is appreciated. Bennie Khan MD on November 30, 2016 at 12:01 Board Certified Radiologist. This report was verified electronically.
--- NOTE | 2016-11-30 14:16 | RADRPT ---
EXAM DATE/TIME: 11/30/2016 12:28 [facility] COMPARISON: ELBOW LEFT LIMITED (AP & LAT), November 26, 2016, 8:10. INDICATIONS : Evaluate left elbow fracture. RADIATION DOSE: 41.45 CTDIvol (mGy) MEDICAL HISTORY : Hypertension. Leukemia. SURGICAL HISTORY : None. ENCOUNTER: Initial ACUITY: 1 week PAIN SCALE: Non-responsive LOCATION: Left elbow TECHNIQUE: Volumetric scanning of the elbow was performed. Using automated exposure control and adjustment of t he mA and/or kV according to patient size, radiation dose was kept as low as reasonably achievable to obtain optimal diagnostic quality images. 3-D reconstructions were performed to assist with interpre tation. FINDINGS: BONES: There is a mildly comminuted and displaced fracture of the lateral condyle and capitellum. The larges t fracture fragment is displaced approximately 16 mm anteriorly. There are small fracture fragments b etween the radial head and capitellum. The proximal radius and ulna are intact. JOINTS: There is a joint effusion. Both the radius and ulna are dislocated anteriorly in relationship to the distal humerus. SOFT TISSUES: There is subcutaneous edema. Muscles demonstrate no acute finding. CONCLUSION: 1. There is a mildly comminuted and displaced fracture of the lateral humeral condyle and capitellum. Fracture fragments are located between the radial head and capitellum. 2. There is also elbow joint dislocation with posterior displacement of the distal humerus in relatio nship to the radius and ulna. Bennie Khan MD on November 30, 2016 at 14:09 Board Certified Radiologist. This report was verified electronically.
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
[2016-11-30] MEDS: VANCOMYCIN INJ 1,600 MG in SODIUM CHLORID 0.9% 500 ML INJ 500 ML IV SCH (15:28)
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
[2016-11-30] MEDS ORDERED: PHARMACY ORDERED LAB ONE (20:45)
[2016-12-01] VITALS (18 sets, daily range): BP systolic 115–145; BP diastolic 58–74; PULSE 83–96; RESP 17–21; TEMP 98.9–99.9; O2SAT 94–100
[2016-12-01] MEDS: VANCOMYCIN INJ 1,600 MG in SODIUM CHLORID 0.9% 500 ML INJ 500 ML IV SCH (00:03)
[2016-12-01] MEDS: PROPOFOL 1000 MG/100 ML INJ 100 ML IV SCH ×7 (01:38→18:08)
[2016-12-01] MEDS: PIPERACIL-TAZO 4.5 GM PREMIX 100 ML IV SCH ×3 (02:02→17:12)
[2016-12-01 03:25] LABS: AUTOMATED NEUTROPHIL # 9.3 TH/MM3 (1.8-7.7); BASOPHIL # 0.1 TH/MM3 (0-0.2); BASOPHIL % 0.4 % (0.0-2.0); EOSINOPHIL # 0.7 TH/MM3 (0-0.4); EOSINOPHIL % 5.2 % (0.0-4.0); HEMATOCRIT 27.1 % (39.0-51.0); LYMPH % 10.6 % (9.0-44.0); LYMPHOCYTE # 1.3 TH/MM3 (1.0-4.8); MEAN CORPUSCULAR HEMOGLOBIN 29.3 PG (27.0-34.0); MEAN CORPUSCULAR HGB CONC 32.9 % (32.0-36.0); MONO % 10.6 % (0.0-8.0); NEUT % 73.2 % (16.0-70.0); PLATELET COUNT 194 TH/MM3 (150-450); RED BLOOD COUNT 3.05 MIL/MM3 (4.50-5.90); WHITE BLOOD COUNT 12.7 TH/MM3 (4.0-11.0)
[2016-12-01 03:27] LABS: HEMO FLAGS AUTO DIFF
[2016-12-01] MEDS: PANTOPRAZOLE SODIUM 40 MG VIAL IV SCH (03:27)
[2016-12-01 03:58] LABS: ALT (GPT) 32 U/L (12-78); ANION GAP 6 MEQ/L (5-15); AST (GOT) 50 U/L (15-37); BICARBONATE 31.3 MEQ/L (21.0-32.0); BLOOD UREA NITROGEN 15 MG/DL (7-18); CHLORIDE 104 MEQ/L (98-107); GLOMERULAR FILTRATION RATE 157 ML/MIN (>89); POTASSIUM 3.7 MEQ/L (3.5-5.1); SODIUM (NA) 141 MEQ/L (136-145)
[2016-12-01 04:00] LABS: ALKALINE PHOSPHATASE 97 U/L (45-117); TOTAL BILIRUBIN ADULT 1.2 MG/DL (0.2-1.0)
[2016-12-01] MEDS ORDERED: MIDAZOLAM HCL 2 MG/2 ML VIAL IV PUSH PRN (04:15)
[2016-12-01] MEDS: fentaNYL DRIP 250 ML IV SCH ×2 (04:38→11:29)
[2016-12-01] MEDS: HYDROmorphone HCL PF 4 MG/ML VIAL IV PUSH PRN ×2 (04:39→22:43)
--- NOTE | 2016-12-01 06:40 | RADRPT ---
EXAM DATE/TIME: 12/01/2016 05:50 [facility] COMPARISON: CHEST SINGLE AP, November 30, 2016, 11:31. INDICATIONS : Shortness of breath. MEDICAL HISTORY : Hypertension. Leukemia. SURGICAL HISTORY : None. ENCOUNTER: Subsequent ACUITY: 1 week PAIN SCORE: Non-responsive. LOCATION: Bilateral chest FINDINGS: A single view of the chest demonstrates bilateral parenchymal densities greater in the mid lungs and lower lobes. Left-sided chest tube unchanged in position. Small lateral pneumothorax measuring 5 mm p leural separation. Endotracheal tube, nasogastric tube and left subclavian central line are stable in position. Osseous structures are intact. CONCLUSION: 1. Small lateral pneumothorax. 2. Bilateral parenchymal densities again seen. Gavino Mauricio MD on December 01, 2016 at 6:35 Board Certified Radiologist. This report was verified electronically.
[2016-12-01 07:06] LABS: BANDS 10 % (0-6); CORRECTED NUCLEATED RBC 1 /100 WBC (0-0); EOSINOPHILS 4 % (0-4); MYELOCYTES 1 % (0-0); NEUTROPHIL # MANUAL DIFF 9.5 TH/MM3 (1.8-7.7); PLATELET ESTIMATE SMEAR NORMAL (NORMAL); PLATELET MORPHOLOGY NORMAL (NORMAL); POLYS (SEG NEUTROPHILS) 64 % (16-70); SCAN/DIFF FINAL DIFF MANUAL; WBC DIFF SAMPLE 100
--- NOTE | 2016-12-01 07:51 | PD.ORT.PN ---
Subjective Subjective Remarks POD 5 s/p IMN left femur POD 5 s/p I&D with wound closure and splinting left elbow intubated/sedated Objective Vitals Vital Signs Date Time Temp Pulse Resp B/P Pulse Ox O2 Delivery O2 Flow Rate FiO2 12/01/16 06:00 83 12/01/16 04:34 96 40 12/01/16 04:00 40 12/01/16 04:00 99.7 91 19 145/74 100 12/01/16 04:00 91 12/01/16 02:00 96 12/01/16 01:54 100 40 12/01/16 00:00 88 12/01/16 00:00 40 12/01/16 00:00 99.9 90 19 128/63 100 11/30/16 22:23 100 40 11/30/16 22:00 91 11/30/16 20:23 100 40 11/30/16 20:00 90 11/30/16 20:00 99.7 89 19 123/69 100 11/30/16 20:00 40 11/30/16 19:00 100 Mechanical Ventilator 40 11/30/16 18:00 83 11/30/16 16:00 40 11/30/16 16:00 79 11/30/16 16:00 98.6 78 17 122/66 100 11/30/16 15:46 100 40 11/30/16 14:00 85 11/30/16 12:59 97 40 11/30/16 12:48 97 40 11/30/16 12:00 50 11/30/16 12:00 82 11/30/16 12:00 99.0 92 18 121/61 92 11/30/16 10:00 97 11/30/16 09:50 99 40 11/30/16 08:12 100 40 11/30/16 08:00 50 11/30/16 08:00 100.9 86 18 133/65 100 Arterial Line 11/30/16 08:00 97 I/O 11/30/16 11/30/16 11/30/16 12/01/16 12/01/16 12/01/16 07:00 15:00 23:00 07:00 15:00 23:00 Intake Total 945 ml 1034 ml 476 ml 417 ml Output Total 730 ml 1350 ml 1415 ml 1320 ml Balance 215 ml -316 ml -939 ml -903 ml Intake IV Total 533 ml 1034 ml 476 ml 417 ml Tube Feeding 412 ml Output Urine Total 700 ml 1250 ml 1275 ml 1200 ml Chest Tube Drainage Total 30 ml 100 ml 140 ml 120 ml # Bowel Movements 0 Result Diagram: 12/01/1631412/01/16314 Imaging Last 24 hours Impressions Pelvis X-Ray 11/23/16344 Signed Impressions: Service Date/Time: Wednesday, November 23, 2016 03:22 - CONCLUSION: Unremarkable examination of the pelvis. Shmuel Callaway Jr., MD Head CT 11/23/16344 Signed Impressions: Service Date/Time: Wednesday, November 23, 2016 04:00 - CONCLUSION: 1. Right frontal soft tissue hematoma. 2. No acute intracranial abnormality. Shmuel Callaway Jr., MD Chest X-Ray 11/23/16344 Signed Impressions: Service Date/Time: Wednesday, November 23, 2016 03:22 - CONCLUSION: 1. Small left pneumothorax. 2. Tip of the endotracheal tube 1.5 cm down the right mainstem bronchus. 3. Bilateral pulmonary consolidations. These likely relate to pulmonary contusions. Shmuel Callaway Jr., MD Chest CT 11/23/16344 Signed Impressions: Service Date/Time: Wednesday, November 23, 2016 04:06 - CONCLUSION: 1. Large left hydropneumothorax despite left-sided chest tube. 2. Subcutaneous air tracking along the left chest and left neck. 3. Bilateral pulmonary consolidations more pronounced on the left. This likely relates to pulmonary contusion. 4. Left second through eighth rib fractures. 5. Left clavicular fracture. 6. Tip of the endotracheal tube 1.5 cm down the right mainstem bronchus. Shmuel Callaway Jr., MD Cervical Spine CT 11/23/16344 Signed Impressions: Service Date/Time: Wednesday, November 23, 2016 04:00 - CONCLUSION: 1. No fracture or dislocation. 2. Air tracking along the left neck. 3. See the CT of the thorax dictated separately. Shmuel Callaway Jr., MD Abdomen/Pelvis CT 11/23/165 Signed Impressions: Service Date/Time: Wednesday, November 23, 2016 04:06 - CONCLUSION: 1. Small splenic laceration with a small amount of blood adjacent to the spleen. No ongoing hemorrhage appreciated. 2. See the CT of the chest reported separately. 3. Degraded study by breathing motion artifact. Shmuel Callaway Jr., MD Femur X-Ray 11/23/16 0000 Signed Impressions: Service Date/Time: Wednesday, November 23, 2016 03:22 - CONCLUSION: Comminuted fracture as detailed above. Shmuel Callaway Jr., MD Elbow X-Ray 11/23/16 0000 Signed Impressions: Service Date/Time: Wednesday, November 23, 2016 03:22 - CONCLUSION: Fracture dislocation as detailed above. Shmuel Callaway Jr., MD Chest X-Ray 11/23/16 0000 Signed Impressions: Service Date/Time: Wednesday, November 23, 2016 07:03 - CONCLUSION: 1. No definite pneumothorax. 2. No significant change compared to the prior exam. Jacky Thompson MD Chest X-Ray 11/23/16 0000 Signed Impressions: Service Date/Time: Wednesday, November 23, 2016 04:33 - CONCLUSION: 1. Repositioning of the endotracheal tube. 2. Placement of second chest tube on the left. Shmuel Callaway Jr., MD Chest X-Ray 11/23/16 0000 Signed Impressions: Service Date/Time: Wednesday, November 23, 2016 03:22 - CONCLUSION: 1. Tip of the endotracheal tube down the right mainstem bronchus for 1.5 cm. 2. Bilateral pulmonary contusions more pronounced on the left. 3. Left clavicular fracture. 4. Multiple left rib fractures. 5. Subcutaneous air. 6. No discernible pneumothorax. Shmuel Callaway Jr., MD Objective Remarks LUE: +long arm splint. good cap refill. LLE: dressings clean and dry. distal femur dressing with mild bloody drainage. + Cap refill Assessment & Plan Assessment and Plan 1) Left Femoral Shaft Fx s/p IMN - POD 5 2) Left Open Elbow Fx with dislocation s/p reduction with wound closure - POD 5 -NWB LLE and LUE -maintain left elbow splint at all times -daily dressing changes to left leg with xeroform/4x4/SIMONE wraps and tape -surgery today for left elbow Christos Adams Dec 01, 2016 07:51
[2016-12-01] MEDS: LACTULOSE SYRUP 20 GM/30 ML CUP PO SCH (08:04)
[2016-12-01] MEDS: SODIUM CHLORIDE 0.9% FLUSH 10 ML FLUSH IV FLUSH SCH ×2 (08:05→20:55)
[2016-12-01] MEDS: CHLORHEXIDINE 0.12% (ORAL KIT) 15 ML CUP MT SCH ×2 (08:05→21:01)
[2016-12-01] MEDS: BACITRACIN TOP OINT 15 GM TUBE TOPICAL SCH ×2 (08:05→20:55)
[2016-12-01] MEDS: VANCOMYCIN INJ 1,750 MG in SODIUM CHLORID 0.9% 500 ML INJ 500 ML IV SCH ×2 (10:21→17:39)
[2016-12-01] MEDS: DOCUSATE SODIUM 50 MG/SENNA 8.6 MG TAB PO SCH ×2 (10:22→20:55)
[2016-12-01] MEDS ORDERED: Vancomycin Consult Pharmacy 1 EA OTHER SCH (10:45)
[2016-12-01] MEDS: HYDROmorphone HCL PF 2 MG/ML VIAL IV PUSH PRN ×2 (12:45→18:16)
[2016-12-01] MEDS ORDERED: ENOXAPARIN SODIUM 30 MG/0.3 ML SYRINGE SQ ONE (13:30)
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
[2016-12-01] MEDS ORDERED: MAGNESIUM CITRATE SOLN 300 ML BTL PO ONE (18:00)
--- NOTE | 2016-12-01 20:45 | MP ---
cc: CAROL RASHEED DATE OF SURGERY: 11/30/2016 PREOPERATIVE DIAGNOSIS: Traumatic chest injury, respiratory failure. POSTOPERATIVE DIAGNOSIS: Traumatic chest injury, respiratory failure. OPERATION: Triple lumen placement, left subclavian. SURGEON: Dr. Earl ANESTHESIA 1% Xylocaine. DESCRIPTION OF PROCEDURE: The patient prepped and draped in the usual fashion. The area was infiltrated with 1% Xylocaine. Needle inserted in the left subclavian vein. Through the needle, the J-wire was guided. J-wire, dilator and triple lumen placed. Triple lumen sutured in place with 2-0 silk. Chest x-ray obtained. Neetu CORREA/JUNE /2:43 PM /8:38 PM
[2016-12-02] VITALS (19 sets, daily range): BP systolic 117–134; BP diastolic 58–77; PULSE 82–98; RESP 14–15; TEMP 98.7–100.1; O2SAT 94–100
[2016-12-02] MEDS: VANCOMYCIN INJ 1,750 MG in SODIUM CHLORID 0.9% 500 ML INJ 500 ML IV SCH ×3 (00:37→17:00)
[2016-12-02] MEDS: fentaNYL DRIP 250 ML IV SCH ×3 (00:37→17:43)
[2016-12-02] MEDS: PROPOFOL 1000 MG/100 ML INJ 100 ML IV SCH ×6 (00:37→17:40)
[2016-12-02] MEDS: PIPERACIL-TAZO 4.5 GM PREMIX 100 ML IV SCH ×3 (01:16→17:40)
[2016-12-02] MEDS: HYDROmorphone HCL PF 4 MG/ML VIAL IV PUSH PRN ×2 (02:29→20:15)
[2016-12-02] MEDS: PANTOPRAZOLE SODIUM 40 MG VIAL IV SCH (04:55)
[2016-12-02 05:04] LABS: AUTOMATED NEUTROPHIL # 8.1 TH/MM3 (1.8-7.7); BASOPHIL # 0.1 TH/MM3 (0-0.2); EOSINOPHIL # 0.8 TH/MM3 (0-0.4); EOSINOPHIL % 6.4 % (0.0-4.0); HEMATOCRIT 25.9 % (39.0-51.0); LYMPH % 14.4 % (9.0-44.0); LYMPHOCYTE # 1.7 TH/MM3 (1.0-4.8); MEAN CORPUSCULAR HEMOGLOBIN 29.2 PG (27.0-34.0); MEAN CORPUSCULAR HGB CONC 32.8 % (32.0-36.0); MONO % 10.5 % (0.0-8.0); NEUT % 67.7 % (16.0-70.0); PLATELET COUNT 248 TH/MM3 (150-450); RED BLOOD COUNT 2.91 MIL/MM3 (4.50-5.90); RED CELL DISTRIBUTION WIDTH 14.9 % (11.6-17.2)
[2016-12-02 05:07] LABS: HEMO FLAGS AUTO DIFF
[2016-12-02 05:28] LABS: ALT (GPT) 47 U/L (12-78); ANION GAP 5 MEQ/L (5-15); AST (GOT) 76 U/L (15-37); BICARBONATE 32.6 MEQ/L (21.0-32.0); BLOOD UREA NITROGEN 14 MG/DL (7-18); CHLORIDE 103 MEQ/L (98-107); GLOMERULAR FILTRATION RATE 180 ML/MIN (>89); POTASSIUM 3.7 MEQ/L (3.5-5.1); SODIUM (NA) 141 MEQ/L (136-145)
[2016-12-02 05:30] LABS: ALKALINE PHOSPHATASE 125 U/L (45-117); TOTAL BILIRUBIN ADULT 1.5 MG/DL (0.2-1.0)
[2016-12-02 07:25] LABS: BANDS 28 % (0-6); EOSINOPHILS 3 % (0-4); METAMYELOCYTES 3 % (0-1); NEUTROPHIL # MANUAL DIFF 9.8 TH/MM3 (1.8-7.7); POLYS (SEG NEUTROPHILS) 51 % (16-70); WBC DIFF SAMPLE 100
[2016-12-02 07:26] LABS: PLATELET ESTIMATE SMEAR NORMAL (NORMAL); PLATELET MORPHOLOGY NORMAL (NORMAL); SCAN/DIFF FINAL DIFF MANUAL
[2016-12-02] MEDS: DOCUSATE SODIUM 50 MG/SENNA 8.6 MG TAB PO SCH ×2 (07:35→20:15)
[2016-12-02] MEDS: LACTULOSE SYRUP 20 GM/30 ML CUP PO SCH (07:35)
[2016-12-02] MEDS: SODIUM CHLORIDE 0.9% FLUSH 10 ML FLUSH IV FLUSH SCH ×2 (07:35→20:15)
[2016-12-02] MEDS: CHLORHEXIDINE 0.12% (ORAL KIT) 15 ML CUP MT SCH ×2 (07:35→20:15)
[2016-12-02] MEDS: BACITRACIN TOP OINT 15 GM TUBE TOPICAL SCH ×2 (07:37→20:15)
--- NOTE | 2016-12-02 08:04 | PD.ORT.PN ---
Subjective Subjective Remarks POD 6 s/p IMN left femur POD 6 s/p I&D with wound closure and splinting left elbow intubated/sedated Objective Vitals Vital Signs Date Time Temp Pulse Resp B/P Pulse Ox O2 Delivery O2 Flow Rate FiO2 12/02/16 06:00 82 12/02/16 04:02 94 40 12/02/16 04:00 40 12/02/16 04:00 90 12/02/16 04:00 99.0 90 14 121/59 100 12/02/16 02:00 84 12/02/16 01:12 100 40 12/02/16 00:00 40 12/02/16 00:00 98.9 92 15 124/77 100 12/02/16 00:00 92 12/01/16 22:01 98 40 12/01/16 22:00 84 12/01/16 20:08 99 40 12/01/16 20:00 87 12/01/16 20:00 40 12/01/16 20:00 99.7 87 21 115/58 98 12/01/16 19:00 97 Mechanical Ventilator 40 12/01/16 18:46 18 12/01/16 17:20 99 40 12/01/16 16:00 40 12/01/16 16:00 99.0 94 17 123/67 97 12/01/16 16:00 94 12/01/16 14:00 85 12/01/16 12:00 40 12/01/16 12:00 99.8 91 17 117/58 95 12/01/16 12:00 91 12/01/16 10:44 94 40 12/01/16 10:00 89 I/O 12/01/16 12/01/16 12/01/16 12/02/16 12/02/16 12/02/16 07:00 15:00 23:00 07:00 15:00 23:00 Intake Total 417 ml 1210 ml 1213 ml 441 ml Output Total 1320 ml 785 ml 1150 ml 1080 ml Balance -903 ml 425 ml 63 ml -639 ml Intake IV Total 417 ml 1085 ml 1057 ml 421 ml Tube Feeding 25 ml 156 ml 0 ml Tube Irrigant 100 ml 0 ml 20 ml Output Urine Total 1200 ml 675 ml 1050 ml 1000 ml Chest Tube Drainage Total 120 ml 110 ml 100 ml 80 ml # Bowel Movements 0 0 1 Result Diagram: 12/02/16 0449 12/02/16 0449 Imaging Last 24 hours Impressions Pelvis X-Ray 11/23/16344 Signed Impressions: Service Date/Time: Wednesday, November 23, 2016 03:22 - CONCLUSION: Unremarkable examination of the pelvis. Shmuel Callaway Jr., MD Head CT 11/23/165 Signed Impressions: Service Date/Time: Wednesday, November 23, 2016 04:00 - CONCLUSION: 1. Right frontal soft tissue hematoma. 2. No acute intracranial abnormality. Shmuel Callaway Jr., MD Chest X-Ray 11/23/16344 Signed Impressions: Service Date/Time: Wednesday, November 23, 2016 03:22 - CONCLUSION: 1. Small left pneumothorax. 2. Tip of the endotracheal tube 1.5 cm down the right mainstem bronchus. 3. Bilateral pulmonary consolidations. These likely relate to pulmonary contusions. Shmuel Callaway Jr., MD Chest CT 11/23/16344 Signed Impressions: Service Date/Time: Wednesday, November 23, 2016 04:06 - CONCLUSION: 1. Large left hydropneumothorax despite left-sided chest tube. 2. Subcutaneous air tracking along the left chest and left neck. 3. Bilateral pulmonary consolidations more pronounced on the left. This likely relates to pulmonary contusion. 4. Left second through eighth rib fractures. 5. Left clavicular fracture. 6. Tip of the endotracheal tube 1.5 cm down the right mainstem bronchus. Shmuel Callaway Jr., MD Cervical Spine CT 11/23/16344 Signed Impressions: Service Date/Time: Wednesday, November 23, 2016 04:00 - CONCLUSION: 1. No fracture or dislocation. 2. Air tracking along the left neck. 3. See the CT of the thorax dictated separately. Shmuel Callaway Jr., MD Abdomen/Pelvis CT 11/23/165 Signed Impressions: Service Date/Time: Wednesday, November 23, 2016 04:06 - CONCLUSION: 1. Small splenic laceration with a small amount of blood adjacent to the spleen. No ongoing hemorrhage appreciated. 2. See the CT of the chest reported separately. 3. Degraded study by breathing motion artifact. Shmuel Callaway Jr., MD Femur X-Ray 11/23/16 0000 Signed Impressions: Service Date/Time: Wednesday, November 23, 2016 03:22 - CONCLUSION: Comminuted fracture as detailed above. Shmuel Callaway Jr., MD Elbow X-Ray 11/23/16 0000 Signed Impressions: Service Date/Time: Wednesday, November 23, 2016 03:22 - CONCLUSION: Fracture dislocation as detailed above. Shmuel Callaway Jr., MD Chest X-Ray 11/23/16 0000 Signed Impressions: Service Date/Time: Wednesday, November 23, 2016 07:03 - CONCLUSION: 1. No definite pneumothorax. 2. No significant change compared to the prior exam. Jacky Thompson MD Chest X-Ray 11/23/16 0000 Signed Impressions: Service Date/Time: Wednesday, November 23, 2016 04:33 - CONCLUSION: 1. Repositioning of the endotracheal tube. 2. Placement of second chest tube on the left. Shmuel Callaway Jr., MD Chest X-Ray 11/23/16 0000 Signed Impressions: Service Date/Time: Wednesday, November 23, 2016 03:22 - CONCLUSION: 1. Tip of the endotracheal tube down the right mainstem bronchus for 1.5 cm. 2. Bilateral pulmonary contusions more pronounced on the left. 3. Left clavicular fracture. 4. Multiple left rib fractures. 5. Subcutaneous air. 6. No discernible pneumothorax. Shmuel Callaway Jr., MD Objective Remarks LUE: +long arm splint. good cap refill. LLE: dressings clean and dry. distal femur dressing with mild bloody drainage. + Cap refill Assessment & Plan Assessment and Plan 1) Left Femoral Shaft Fx s/p IMN - POD 6 2) Left Open Elbow Fx with dislocation s/p reduction with wound closure - POD 6 -NWB LLE and LUE -maintain left elbow splint at all times -daily dressing changes to left leg with xeroform/4x4/SIMONE wraps and tape -surgery today for left elbow Christos Adams Dec 02, 2016 08:04
[2016-12-02] MEDS: HYDROmorphone HCL PF 2 MG/ML VIAL IV PUSH PRN ×2 (08:39→15:30)
[2016-12-02] MEDS ORDERED: PHARMACY ORDERED LAB ONE (08:45)
--- NOTE | 2016-12-02 08:47 | RADRPT ---
EXAM DATE/TIME: 12/02/2016 07:47 [facility] COMPARISON: CHEST SINGLE AP, December 01, 2016, 5:50. INDICATIONS : Pneumothorax. MEDICAL HISTORY : Hypertension. Leukemia. Smoker. SURGICAL HISTORY : None. ENCOUNTER: Initial ACUITY: 4 - 6 days PAIN SCORE: Non-responsive. LOCATION: Bilateral chest FINDINGS: Portable AP views of the chest demonstrates a normal-sized cardiac silhouette. ETT, NG tube, and left subclavian central line remain present and not significantly changed in position. Left chest tube al so remains present and a very small left pneumothorax is suspected and appears similar to the prior s tudy. There is peripheral right mid and lower lung zone airspace consolidation is stable. Hazy airspa ce opacity in the left lower lung zone is also stable. The multiple left rib fractures remain visuali zed. CONCLUSION: 1. Stable chest x-ray with left chest tube in place with a small left pneumothorax. 2. Stable bilateral airspace opacities/consolidation in the lower lung zones. Bennie Khan MD on December 02, 2016 at 8:44 Board Certified Radiologist. This report was verified electronically.
[2016-12-02] MEDS ORDERED: GENTAMICIN SULFATE 80 MG/2 ML VIAL ONE (10:41)
[2016-12-02] MEDS ORDERED: PROPOFOL 200 MG/20 ML AMP IV ONE (10:44)
--- NOTE | 2016-12-02 11:27 | PD.OP ---
cc: Troy Platt MD Operative Report Date of Surgery: Dec 02, 2016 Preoperative Diagnosis: Open left distal humerus lateral condyle fracture Postoperative Diagnosis: Procedure: Irrigation debridement of open distal humerus fracture, open reduction internal fixation left distal humerus lateral condyle fracture Anesthesia: Gen. Surgeon: Troy Platt Systems Qa Analyst(s): KOSTA Esteves PA-C The surgical procedure was assisted by my physician nursing assistants teacher. My P.A. presence was necessary throughout this case for the manipulation and positioning of the surgical extremity. My P.A. was assisting me throughout the duration of this procedure. The skill set of a physician nursing assistants teacher was medically necessary to complete this procedure. During the surgical case the rn neurosurgical was working at the back table and the physician nursing assistants teacher was directly assisting me. Operation and Findings: Patient was seen and evaluated preoperatively. Treatment options were discussed regarding distal humerus fracture including surgical and nonsurgical treatments. Risks of surgery include bleeding, infection, nonunion, malunion, painful hardware, loss of motion of shoulder and elbow, weakness and numbness of arm, ulnar nerve injury as well as medical competitions including blood clots stroke and . Informed consent was obtained from patient's family. Patient was brought to operating room and placed on the OR table. GETA was administered by anesthesiologist. Patient was positioned in lateral decubitus position. Extremities were well-padded. Axillary roll was placed. Operative arm and shoulder were prepped with alcohol followed by Hibiclens and draped usual sterile fashion. Timeout procedure was performed. IV antibiotics were given prior to incision. A standard posterior approach was utilized. The traumatic laceration was opened. Subcutaneous tissues was dissected with Bovie. The lateral border of the triceps was elevated off of the distal humerus. Fracture site was visualized. Soft tissue was removed from the fracture site. Fracture site was cleaned with curettes. At this point the fracture was reduced using fracture tenaculums. Multiplanar fluoroscopy confirmed excellent of fracture. Synthes distal lateral humerus plate was selected. Next the lateral plate was placed along the lateral humerus. Plate was provisionally held to bone with K wires. 3.5 cortical screws and 2.7 cortical screws were used to compress plate to bone. Additional 2.7 locking screws were placed distally. K wires were removed. Final fluoroscopy revealed excellent alignment of fracture with well- placed hardware. Incision was thoroughly irrigated. Fascia was closed with #1 Vicryl, subcutaneous tissues closed with 3-0 PDS, and skin was closed with eugenia. Sterile dressings were applied. Needle and sponge counts were correct. Patient was placed into a sling, and then transferred to recovery room in stable condition Troy Platt MD Dec 02, 2016 11:27
[2016-12-02] MEDS ORDERED: Post-op Orders (for Pharmacy) MISC XX ONE (11:30)
[2016-12-02] MEDS ORDERED: fentaNYL CITRATE 250 MCG/5 ML AMP ONE (12:10)
[2016-12-02] MEDS ORDERED: MIDAZOLAM HCL 2 MG/2 ML VIAL ONE (12:10)
--- NOTE | 2016-12-02 13:38 | RADRPT ---
EXAM DATE/TIME: 12/02/2016 11:12 [facility] COMPARISON: ELBOW LEFT LIMITED (AP & LAT), November 26, 2016, 8:10. INDICATIONS : ORIF left distal humerus. MEDICAL HISTORY : None. SURGICAL HISTORY : None. ENCOUNTER: Subsequent ACUITY: 1 week PAIN SCORE: Non-responsive. LOCATION: Left distal humerus. FINDINGS: There is operative fixation of distal humerus fracture with lateral plate and screw fixation in good alignment. CONCLUSION: Postoperative changes. Carloz Carvalho MD on December 02, 2016 at 13:36 Board Certified Radiologist. This report was verified electronically.
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
--- NOTE | 2016-12-02 15:44 | HHI.IDPN ---
Subjective Subjective Remarks pt went to OR for LUE ORIF today he is having low grade temps + moderate amount of secretins CT output going down Antibiotics zosyn nello Allergies: Coded Allergies: No Known Allergies (Verified , 11/25/16) Objective . Vital Signs Date Time Temp Pulse Resp B/P Pulse Ox O2 Delivery O2 Flow Rate FiO2 12/02/16 14:00 91 12/02/16 12:05 100 40 12/02/16 12:00 40 12/02/16 12:00 87 12/02/16 12:00 98.7 91 14 117/58 94 12/02/16 09:55 98 100 12/02/16 08:14 99 40 12/02/16 08:00 98.8 88 14 126/59 94 12/02/16 08:00 88 12/02/16 08:00 40 12/02/16 07:00 95 Mechanical Ventilator 40 12/02/16 06:00 82 12/02/16 04:02 94 40 12/02/16 04:00 40 12/02/16 04:00 90 12/02/16 04:00 99.0 90 14 121/59 100 12/02/16 02:00 84 12/02/16 01:12 100 40 12/02/16 00:00 40 12/02/16 00:00 98.9 92 15 124/77 100 12/02/16 00:00 92 12/01/16 22:01 98 40 12/01/16 22:00 84 12/01/16 20:08 99 40 12/01/16 20:00 87 12/01/16 20:00 40 12/01/16 20:00 99.7 87 21 115/58 98 12/01/16 19:00 97 Mechanical Ventilator 40 12/01/16 18:46 18 12/01/16 17:20 99 40 12/01/16 16:00 40 12/01/16 16:00 99.0 94 17 123/67 97 12/01/16 16:00 94 12/01/16 12/01/16 12/02/16 15:00 23:00 07:00 Intake Total 1210 ml 1213 ml 441 ml Output Total 785 ml 1150 ml 1080 ml Balance 425 ml 63 ml -639 ml Intake IV Total 1085 ml 1057 ml 421 ml Tube Feeding 25 ml 156 ml 0 ml Tube Irrigant 100 ml 0 ml 20 ml Output Urine Total 675 ml 1050 ml 1000 ml Chest Tube Drainage Total 110 ml 100 ml 80 ml # Bowel Movements 0 0 1 . Laboratory Tests Test 12/01/16 12/02/16 03:15 04:49 White Blood Count 12.7 TH/MM3 12.0 TH/MM3 Red Blood Count 3.05 MIL/MM3 2.91 MIL/MM3 Hemoglobin 8.9 GM/DL 8.5 GM/DL Hematocrit 27.1 % 25.9 % Mean Corpuscular Volume 89.0 FL 89.0 FL Mean Corpuscular Hemoglobin 29.3 PG 29.2 PG Mean Corpuscular Hemoglobin 32.9 % 32.8 % Concent Red Cell Distribution Width 15.0 % 14.9 % Platelet Count 194 TH/MM3 248 TH/MM3 Mean Platelet Volume 8.2 FL 8.3 FL Neutrophils (%) (Auto) 73.2 % 67.7 % Lymphocytes (%) (Auto) 10.6 % 14.4 % Monocytes (%) (Auto) 10.6 % 10.5 % Eosinophils (%) (Auto) 5.2 % 6.4 % Basophils (%) (Auto) 0.4 % 1.0 % Neutrophils # (Auto) 9.3 TH/MM3 8.1 TH/MM3 Lymphocytes # (Auto) 1.3 TH/MM3 1.7 TH/MM3 Monocytes # (Auto) 1.4 TH/MM3 1.3 TH/MM3 Eosinophils # (Auto) 0.7 TH/MM3 0.8 TH/MM3 Basophils # (Auto) 0.1 TH/MM3 0.1 TH/MM3 CBC Comment AUTO DIFF AUTO DIFF Differential Total Cells 100 100 Counted Neutrophils % (Manual) 64 % 51 % Band Neutrophils % 10 % 28 % Lymphocytes % 10 % 7 % Monocytes % 11 % 8 % Eosinophils % 4 % 3 % Neutrophils # (Manual) 9.5 TH/MM3 9.8 TH/MM3 Myelocytes 1 % Nucleated Red Blood Cells 1 /100 WBC Differential Comment FINAL DIFF FINAL DIFF MANUAL MANUAL Platelet Estimate NORMAL NORMAL Platelet Morphology Comment NORMAL NORMAL Red Cell Morphology Comment NORMAL NORMAL Metamyelocytes 3 % Laboratory Tests Test 12/01/16 12/02/16 03:15 04:49 Sodium Level 141 MEQ/L 141 MEQ/L Potassium Level 3.7 MEQ/L 3.7 MEQ/L Chloride Level 104 MEQ/L 103 MEQ/L Carbon Dioxide Level 31.3 MEQ/L 32.6 MEQ/L Anion Gap 6 MEQ/L 5 MEQ/L Blood Urea Nitrogen 15 MG/DL 14 MG/DL Creatinine 0.62 MG/DL 0.55 MG/DL Estimat Glomerular Filtration 157 ML/MIN 180 ML/MIN Rate Random Glucose 100 MG/DL 90 MG/DL Calcium Level 7.7 MG/DL 8.1 MG/DL Total Bilirubin 1.2 MG/DL 1.5 MG/DL Aspartate Amino Transf 50 U/L 76 U/L (AST/SGOT) Alanine Aminotransferase 32 U/L 47 U/L (ALT/SGPT) Alkaline Phosphatase 97 U/L 125 U/L Total Protein 5.5 GM/DL 5.5 GM/DL Albumin 1.9 GM/DL 1.9 GM/DL Microbiology Date/Time Procedure Status Source Growth 11/29/16 17:55 Urine Culture - Final Complete Urine Catheterized Urine NO GROWTH IN 48 HOURS. 11/29/16 19:30 Aerobic Blood Culture - Preliminary Resulted Blood Peripheral NO GROWTH IN 3 DAYS 11/29/16 19:30 Anaerobic Blood Culture - Preliminary Resulted Blood Peripheral NO GROWTH IN 3 DAYS Imaging Last Impressions Elbow X-Ray 12/02/16 0000 Signed Impressions: Service Date/Time: Friday, December 02, 2016 11:12 - CONCLUSION: Postoperative changes. Carloz Carvalho MD Chest X-Ray 12/02/16 0000 Signed Impressions: Service Date/Time: Friday, December 02, 2016 07:47 - CONCLUSION: 1. Stable chest x-ray with left chest tube in place with a small left pneumothorax. 2. Stable bilateral airspace opacities/consolidation in the lower lung zones. Bennie Khan MD Upper Extremity CT 11/30/16 0000 Signed Impressions: Service Date/Time: Wednesday, November 30, 2016 12:28 - CONCLUSION: 1. There is a mildly comminuted and displaced fracture of the lateral humeral condyle and capitellum. Fracture fragments are located between the radial head and capitellum. 2. There is also elbow joint dislocation with posterior displacement of the distal humerus in relationship to the radius and ulna. Bennie Khan MD Femur X-Ray 11/26/16 0000 Signed Impressions: Service Date/Time: November 08:10 - CONCLUSION: Intraoperative images showing femoral shaft fracture with hardware in place across the fracture. Zack Ramírez MD Pelvis X-Ray 11/23/16344 Signed Impressions: Service Date/Time: Wednesday, November 23, 2016 03:22 - CONCLUSION: Unremarkable examination of the pelvis. Shmuel Callaway Jr., MD Head CT 11/23/16344 Signed Impressions: Service Date/Time: Wednesday, November 23, 2016 04:00 - CONCLUSION: 1. Right frontal soft tissue hematoma. 2. No acute intracranial abnormality. Shmuel Callaway Jr., MD Chest CT 11/23/16344 Signed Impressions: Service Date/Time: Wednesday, November 23, 2016 04:06 - CONCLUSION: 1. Large left hydropneumothorax despite left-sided chest tube. 2. Subcutaneous air tracking along the left chest and left neck. 3. Bilateral pulmonary consolidations more pronounced on the left. This likely relates to pulmonary contusion. 4. Left second through eighth rib fractures. 5. Left clavicular fracture. 6. Tip of the endotracheal tube 1.5 cm down the right mainstem bronchus. Shmuel Callaway Jr., MD Cervical Spine CT 11/23/16344 Signed Impressions: Service Date/Time: Wednesday, November 23, 2016 04:00 - CONCLUSION: 1. No fracture or dislocation. 2. Air tracking along the left neck. 3. See the CT of the thorax dictated separately. Shmuel Callaway Jr., MD Abdomen/Pelvis CT 11/23/16344 Signed Impressions: Service Date/Time: Wednesday, November 23, 2016 04:06 - CONCLUSION: 1. Small splenic laceration with a small amount of blood adjacent to the spleen. No ongoing hemorrhage appreciated. 2. See the CT of the chest reported separately. 3. Degraded study by breathing motion artifact. Shmuel Callaway Jr., MD Physical Exam CONSTITUTIONAL/GENERAL: This is an obese young male patient, in no apparent distress. TUBES/LINES/DRAINS: SKIN: + multiple abbrasions on face, extremeties chest. Skin temperature appropriate. + diaphoretic. HEAD: + traumatic wit multiple abrasions. Normocephalic. EYES: Pupils equal and round and reactive. Extraocular motions intact. No scleral icterus. No injection or drainage. Fundi not examined. ENT: Hearing grossly normal. Nose without bleeding or purulent drainage. Orally intubated NECK: Trachea midline. Supple, nontender. CARDIOVASCULAR: Regular rate and rhythm without murmurs, gallops, or rubs. No JVD. Peripheral pulses symmetric. RESPIRATORY/CHEST: Multiple abrasions of the chest. Scattered rhonchi. CT in place on the L with serosang dc GASTROINTESTINAL: Abdomen soft, non-tender, nondistended. No hepato-splenomegaly , or palpable masses. No guarding. Bowel sounds present. GENITOURINARY: Without palpable bladder distension. Be catheter in place with clear yellow urine Edematous scrotum MUSCULOSKELETAL: Extremities without clubbing, cyanosis, + 1 edema. LUE with surg dresisjng in palce, fingertips are free of neurovascular deficit No mottling or clubbing. 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 PNA Acute VDRF - cont zosyn for now - fu repeat blood clx Rubia Galindo RN, MD Dec 02, 2016 15:44
[2016-12-03] VITALS (19 sets, daily range): BP systolic 111–128; BP diastolic 56–62; PULSE 86–114; RESP 13–16; TEMP 98.8–100.9; O2SAT 97–100
[2016-12-03] MEDS: PROPOFOL 1000 MG/100 ML INJ 100 ML IV SCH ×8 (00:18→21:35)
[2016-12-03] MEDS: HYDROmorphone HCL PF 4 MG/ML VIAL IV PUSH PRN ×3 (00:19→05:15)
[2016-12-03] MEDS: VANCOMYCIN INJ 1,750 MG in SODIUM CHLORID 0.9% 500 ML INJ 500 ML IV SCH ×3 (01:45→17:28)
[2016-12-03] MEDS: PIPERACIL-TAZO 4.5 GM PREMIX 100 ML IV SCH ×3 (02:41→17:28)
[2016-12-03] MEDS: PANTOPRAZOLE SODIUM 40 MG VIAL IV SCH (04:58)
[2016-12-03 05:54] LABS: AUTOMATED NEUTROPHIL # 8.6 TH/MM3 (1.8-7.7); BASOPHIL % 0.3 % (0.0-2.0); EOSINOPHIL # 0.7 TH/MM3 (0-0.4); EOSINOPHIL % 5.8 % (0.0-4.0); HEMATOCRIT 23.9 % (39.0-51.0); LYMPHOCYTE # 1.9 TH/MM3 (1.0-4.8); MEAN CELL VOLUME 88.3 FL (80.0-100.0); MEAN CORPUSCULAR HEMOGLOBIN 30.1 PG (27.0-34.0); MEAN CORPUSCULAR HGB CONC 34.1 % (32.0-36.0); MONO % 10.8 % (0.0-8.0); NEUT % 68.1 % (16.0-70.0); PLATELET COUNT 308 TH/MM3 (150-450); RED BLOOD COUNT 2.71 MIL/MM3 (4.50-5.90); RED CELL DISTRIBUTION WIDTH 14.4 % (11.6-17.2); WHITE BLOOD COUNT 12.6 TH/MM3 (4.0-11.0)
[2016-12-03 06:17] LABS: ALT (GPT) 44 U/L (12-78); ANION GAP 5 MEQ/L (5-15); AST (GOT) 49 U/L (15-37); BICARBONATE 32.6 MEQ/L (21.0-32.0); BLOOD UREA NITROGEN 11 MG/DL (7-18); CHLORIDE 105 MEQ/L (98-107); GLOMERULAR FILTRATION RATE 173 ML/MIN (>89); POTASSIUM 3.8 MEQ/L (3.5-5.1); SODIUM (NA) 143 MEQ/L (136-145)
[2016-12-03 06:19] LABS: ALKALINE PHOSPHATASE 107 U/L (45-117)
[2016-12-03 06:25] LABS: HEMO FLAGS AUTO DIFF
[2016-12-03] MEDS: fentaNYL DRIP 250 ML IV SCH ×2 (06:48→08:22)
--- NOTE | 2016-12-03 07:13 | PD.ORT.PN ---
Subjective Subjective Remarks POD 7 s/p IMN left femur POD 1 s/p I&D with ORIF left distal humerus intubated/sedated Objective Vitals Vital Signs Date Time Temp Pulse Resp B/P Pulse Ox O2 Delivery O2 Flow Rate FiO2 12/03/16 06:00 92 12/03/16 04:00 100.0 94 14 118/59 100 12/03/16 04:00 100 12/03/16 03:36 99 40 12/03/16 02:00 92 12/03/16 01:29 98 40 12/03/16 00:00 94 12/03/16 00:00 100.0 94 14 118/59 100 12/03/16 00:00 40 12/02/16 22:25 97 40 12/02/16 22:00 93 12/02/16 20:16 96 40 12/02/16 20:00 40 12/02/16 20:00 98 12/02/16 20:00 100.1 98 14 134/75 100 12/02/16 19:00 97 Mechanical Ventilator 40 12/02/16 18:00 91 12/02/16 16:58 97 40 12/02/16 16:00 99.6 94 14 124/64 97 12/02/16 16:00 94 12/02/16 16:00 40 12/02/16 16:00 14 12/02/16 14:00 91 12/02/16 12:05 100 40 12/02/16 12:00 40 12/02/16 12:00 87 12/02/16 12:00 98.7 91 14 117/58 94 12/02/16 09:55 98 100 12/02/16 08:14 99 40 12/02/16 08:00 98.8 88 14 126/59 94 12/02/16 08:00 88 12/02/16 08:00 40 I/O 12/02/16 12/02/16 12/02/16 12/03/16 12/03/16 12/03/16 07:00 15:00 23:00 07:00 15:00 23:00 Intake Total 441 ml 534 ml 1073 ml 1094 ml Output Total 1080 ml 1050 ml 1448 ml 1084 ml Balance -639 ml -516 ml -375 ml 10 ml Intake IV Total 421 ml 434 ml 1073 ml 1094 ml Tube Feeding 0 ml 0 ml Tube Irrigant 20 ml 100 ml Output Urine Total 1000 ml 950 ml 1400 ml 1050 ml Chest Tube Drainage Total 80 ml 100 ml 48 ml 34 ml # Bowel Movements 1 2 0 0 Result Diagram: 12/03/16 0535 12/03/16 0535 Imaging Last 24 hours Impressions Pelvis X-Ray 11/23/16344 Signed Impressions: Service Date/Time: Wednesday, November 23, 2016 03:22 - CONCLUSION: Unremarkable examination of the pelvis. Shmuel Callaway Jr., MD Head CT 11/23/16344 Signed Impressions: Service Date/Time: Wednesday, November 23, 2016 04:00 - CONCLUSION: 1. Right frontal soft tissue hematoma. 2. No acute intracranial abnormality. Shmuel Callaway Jr., MD Chest X-Ray 11/23/16344 Signed Impressions: Service Date/Time: Wednesday, November 23, 2016 03:22 - CONCLUSION: 1. Small left pneumothorax. 2. Tip of the endotracheal tube 1.5 cm down the right mainstem bronchus. 3. Bilateral pulmonary consolidations. These likely relate to pulmonary contusions. Shmuel Callaway Jr., MD Chest CT 11/23/16344 Signed Impressions: Service Date/Time: Wednesday, November 23, 2016 04:06 - CONCLUSION: 1. Large left hydropneumothorax despite left-sided chest tube. 2. Subcutaneous air tracking along the left chest and left neck. 3. Bilateral pulmonary consolidations more pronounced on the left. This likely relates to pulmonary contusion. 4. Left second through eighth rib fractures. 5. Left clavicular fracture. 6. Tip of the endotracheal tube 1.5 cm down the right mainstem bronchus. Shmuel Callaway Jr., MD Cervical Spine CT 11/23/16344 Signed Impressions: Service Date/Time: Wednesday, November 23, 2016 04:00 - CONCLUSION: 1. No fracture or dislocation. 2. Air tracking along the left neck. 3. See the CT of the thorax dictated separately. Shmuel Callaway Jr., MD Abdomen/Pelvis CT 11/23/16344 Signed Impressions: Service Date/Time: Wednesday, November 23, 2016 04:06 - CONCLUSION: 1. Small splenic laceration with a small amount of blood adjacent to the spleen. No ongoing hemorrhage appreciated. 2. See the CT of the chest reported separately. 3. Degraded study by breathing motion artifact. Shmuel Callaway Jr., MD Femur X-Ray 11/23/16 0000 Signed Impressions: Service Date/Time: Wednesday, November 23, 2016 03:22 - CONCLUSION: Comminuted fracture as detailed above. Shmuel Callaway Jr., MD Elbow X-Ray 11/23/16 Signed Impressions: Service Date/Time: Wednesday, November 23, 2016 03:22 - CONCLUSION: Fracture dislocation as detailed above. Shmuel Callaway Jr., MD Chest X-Ray 11/23/16 0000 Signed Impressions: Service Date/Time: Wednesday, November 23, 2016 07:03 - CONCLUSION: 1. No definite pneumothorax. 2. No significant change compared to the prior exam. Jacky Thompson MD Chest X-Ray 11/23/16 Signed Impressions: Service Date/Time: Wednesday, November 23, 2016 04:33 - CONCLUSION: 1. Repositioning of the endotracheal tube. 2. Placement of second chest tube on the left. Shmuel Callaway Jr., MD Chest X-Ray 11/23/16 Signed Impressions: Service Date/Time: Wednesday, November 23, 2016 03:22 - CONCLUSION: 1. Tip of the endotracheal tube down the right mainstem bronchus for 1.5 cm. 2. Bilateral pulmonary contusions more pronounced on the left. 3. Left clavicular fracture. 4. Multiple left rib fractures. 5. Subcutaneous air. 6. No discernible pneumothorax. Shmuel Callaway Jr., MD Objective Remarks LUE: +long arm splint. good cap refill. LLE: dressings clean and dry. distal femur dressing with mild bloody drainage. + Cap refill Assessment & Plan Assessment and Plan 1) Left Femoral Shaft Fx s/p IMN - POD 7 2) Left Open Elbow Fx with dislocation s/p ORIF distal humerus - POD 1 -NWB LLE and LUE -maintain left elbow splint at all times -daily dressing changes to left leg with xeroform/4x4/SIMONE wraps and tape -all ortho surgeries completed Christos Adams Dec 03, 2016 07:13
[2016-12-03 07:40] LABS: BANDS 9 % (0-6); BASOPHILS 1 % (0-2); EOSINOPHILS 4 % (0-4); METAMYELOCYTES 4 % (0-1); MYELOCYTES 3 % (0-0); NEUTROPHIL # MANUAL DIFF 8.9 TH/MM3 (1.8-7.7); POLYS (SEG NEUTROPHILS) 55 % (16-70); WBC DIFF SAMPLE 100
[2016-12-03 07:41] LABS: PLATELET ESTIMATE SMEAR NORMAL (NORMAL); PLATELET MORPHOLOGY NORMAL (NORMAL); SCAN/DIFF FINAL DIFF MANUAL
[2016-12-03] MEDS: CHLORHEXIDINE 0.12% (ORAL KIT) 15 ML CUP MT SCH ×2 (08:20→20:14)
[2016-12-03] MEDS: DOCUSATE SODIUM 50 MG/SENNA 8.6 MG TAB PO SCH ×2 (08:21→20:17)
[2016-12-03] MEDS: SODIUM CHLORIDE 0.9% FLUSH 10 ML FLUSH IV FLUSH SCH ×2 (08:21→20:17)
[2016-12-03] MEDS: BACITRACIN TOP OINT 15 GM TUBE TOPICAL SCH ×2 (08:21→20:17)
[2016-12-03] MEDS: LACTULOSE SYRUP 20 GM/30 ML CUP PO SCH (08:21)
[2016-12-03 10:47] LABS: ULNAR PULSE PRESENT
[2016-12-03] MEDS: HYDROmorphone HCL PF 2 MG/ML VIAL IV PUSH PRN (11:12)
[2016-12-03 11:14] LABS: BLOOD GAS BASE EXCESS 6.3 mmol/L (-2-2); BLOOD GAS CARBOXYHEMOGLOBIN 1.8 % (0-4); BLOOD GAS HCO3 31 mmol/L (22-26); BLOOD GAS METHEMOGLOBIN 1.1 % (0-2); BLOOD GAS O2 HGB SATURATION 94 % (90-100); BLOOD GAS OXYGEN CONTENT 11.1 Vol % (12.0-20.0); BLOOD GAS PCO2 51 mmHg (38-42); BLOOD GAS PO2 86 mmHg (61-120); BLOOD GAS TOTAL HGB 8.3 G/DL (12.0-16.0); CRITICAL VALUE YES; FIO2 40 %; OXYGEN DEVICE VENTILATOR; TEMP CORR TO 98.6; VENT SETTINGS PRVC/AC
[2016-12-03 11:15] LABS: DRAW SITE RT RADIAL; NUMBER OF ARTERIAL PUNCTURES 1; STAT NO; ULNAR PULSE PRESENT
[2016-12-03] MEDS ORDERED: FUROSEMIDE 20 MG/2 ML VIAL IV PUSH ONE (11:15)
[2016-12-03] MEDS: ACETAMINOPHEN 1000 MG/100 ML VIAL IV PRN (13:11)
--- NOTE | 2016-12-03 13:36 | HHI.IDPN ---
Subjective Subjective Remarks ID COVERAGE 26 year old admitted as trauma alert Has multiple injuries including pulmonary contusion, and long bone fractures On the vent On Rx for Strep PNA Has continued fevers Florina TF Has LSC TLC Had ORIF LUE fracture Previous had surgery LLE fracture BP ok Temp 100.9 Sedated on the vent Has one CT L side Antibiotics zosyn vanco Lines LSC TLC Past Medical History Reviewed Allergies: Coded Allergies: No Known Allergies (Verified , 11/25/16) Objective . Vital Signs Date Time Temp Pulse Resp B/P Pulse Ox O2 Delivery O2 Flow Rate FiO2 12/03/16 12:00 100.9 112 16 128/62 100 12/03/16 12:00 40 12/03/16 12:00 112 12/03/16 11:56 100 40 12/03/16 10:00 98 12/03/16 08:49 97 40 12/03/16 08:00 99.7 98 14 121/58 97 12/03/16 08:00 98 12/03/16 08:00 40 12/03/16 07:00 98 Mechanical Ventilator 40 12/03/16 06:00 92 12/03/16 04:00 100.0 94 14 118/59 100 12/03/16 04:00 100 12/03/16 03:36 99 40 12/03/16 02:00 92 12/03/16 01:29 98 40 12/03/16 00:00 94 12/03/16 00:00 100.0 94 14 118/59 100 12/03/16 00:00 40 12/02/16 22:25 97 40 12/02/16 22:00 93 12/02/16 20:16 96 40 12/02/16 20:00 40 12/02/16 20:00 98 12/02/16 20:00 100.1 98 14 134/75 100 12/02/16 19:00 97 Mechanical Ventilator 40 12/02/16 18:00 91 12/02/16 16:58 97 40 12/02/16 16:00 99.6 94 14 124/64 97 12/02/16 16:00 94 12/02/16 16:00 40 12/02/16 16:00 14 12/02/16 14:00 91 12/02/16 12/02/16 12/03/16 15:00 23:00 07:00 Intake Total 534 ml 1073 ml 1094 ml Output Total 1050 ml 1448 ml 1084 ml Balance -516 ml -375 ml 10 ml Intake IV Total 434 ml 1073 ml 1094 ml Tube Feeding 0 ml Tube Irrigant 100 ml Output Urine Total 950 ml 1400 ml 1050 ml Chest Tube Drainage Total 100 ml 48 ml 34 ml # Bowel Movements 2 0 0 . Laboratory Tests Test 12/02/16 12/03/16 04:49 05:35 White Blood Count 12.0 TH/MM3 12.6 TH/MM3 Red Blood Count 2.91 MIL/MM3 2.71 MIL/MM3 Hemoglobin 8.5 GM/DL 8.2 GM/DL Hematocrit 25.9 % 23.9 % Mean Corpuscular Volume 89.0 FL 88.3 FL Mean Corpuscular Hemoglobin 29.2 PG 30.1 PG Mean Corpuscular Hemoglobin 32.8 % 34.1 % Concent Red Cell Distribution Width 14.9 % 14.4 % Platelet Count 248 TH/MM3 308 TH/MM3 Mean Platelet Volume 8.3 FL 7.7 FL Neutrophils (%) (Auto) 67.7 % 68.1 % Lymphocytes (%) (Auto) 14.4 % 15.0 % Monocytes (%) (Auto) 10.5 % 10.8 % Eosinophils (%) (Auto) 6.4 % 5.8 % Basophils (%) (Auto) 1.0 % 0.3 % Neutrophils # (Auto) 8.1 TH/MM3 8.6 TH/MM3 Lymphocytes # (Auto) 1.7 TH/MM3 1.9 TH/MM3 Monocytes # (Auto) 1.3 TH/MM3 1.4 TH/MM3 Eosinophils # (Auto) 0.8 TH/MM3 0.7 TH/MM3 Basophils # (Auto) 0.1 TH/MM3 0.0 TH/MM3 CBC Comment AUTO DIFF AUTO DIFF Differential Total Cells 100 100 Counted Neutrophils % (Manual) 51 % 55 % Band Neutrophils % 28 % 9 % Lymphocytes % 7 % 15 % Monocytes % 8 % 9 % Eosinophils % 3 % 4 % Neutrophils # (Manual) 9.8 TH/MM3 8.9 TH/MM3 Metamyelocytes 3 % 4 % Differential Comment FINAL DIFF FINAL DIFF MANUAL MANUAL Platelet Estimate NORMAL NORMAL Platelet Morphology Comment NORMAL NORMAL Red Cell Morphology Comment NORMAL Basophils % 1 % Myelocytes 3 % Laboratory Tests Test 12/02/16 12/03/16 04:49 05:35 Sodium Level 141 MEQ/L 143 MEQ/L Potassium Level 3.7 MEQ/L 3.8 MEQ/L Chloride Level 103 MEQ/L 105 MEQ/L Carbon Dioxide Level 32.6 MEQ/L 32.6 MEQ/L Anion Gap 5 MEQ/L 5 MEQ/L Blood Urea Nitrogen 14 MG/DL 11 MG/DL Creatinine 0.55 MG/DL 0.57 MG/DL Estimat Glomerular Filtration 180 ML/MIN 173 ML/MIN Rate Random Glucose 90 MG/DL 86 MG/DL Calcium Level 8.1 MG/DL 8.1 MG/DL Total Bilirubin 1.5 MG/DL 1.0 MG/DL Aspartate Amino Transf 76 U/L 49 U/L (AST/SGOT) Alanine Aminotransferase 47 U/L 44 U/L (ALT/SGPT) Alkaline Phosphatase 125 U/L 107 U/L Total Protein 5.5 GM/DL 5.4 GM/DL Albumin 1.9 GM/DL 1.9 GM/DL Imaging Elbow X-Ray 12/02/16 0000 Signed Impressions: Service Date/Time: Friday, December 02, 2016 11:12 - CONCLUSION: Postoperative changes. Carloz Carvalho MD Chest X-Ray 12/02/16 0000 Signed Impressions: Service Date/Time: Friday, December 02, 2016 07:47 - CONCLUSION: 1. Stable chest x-ray with left chest tube in place with a small left pneumothorax. 2. Stable bilateral airspace opacities/consolidation in the lower lung zones. Bennie Khan MD Upper Extremity CT 11/30/16 0000 Signed Impressions: Service Date/Time: Wednesday, November 30, 2016 12:28 - CONCLUSION: 1. There is a mildly comminuted and displaced fracture of the lateral humeral condyle and capitellum. Fracture fragments are located between the radial head and capitellum. 2. There is also elbow joint dislocation with posterior displacement of the distal humerus in relationship to the radius and ulna. Bennie Khan MD Femur X-Ray 11/26/16 0000 Signed Impressions: Service Date/Time: November 08:10 - CONCLUSION: Intraoperative images showing femoral shaft fracture with hardware in place across the fracture. Zack Ramírez MD Pelvis X-Ray 11/23/16 0345 Signed Impressions: Service Date/Time: Wednesday, November 23, 2016 03:22 - CONCLUSION: Unremarkable examination of the pelvis. Shmuel Callaway Jr., MD Head CT 11/23/16 0345 Signed Impressions: Service Date/Time: Wednesday, November 23, 2016 04:00 - CONCLUSION: 1. Right frontal soft tissue hematoma. 2. No acute intracranial abnormality. Shmuel Callaway Jr., MD Chest CT 11/23/16 0345 Signed Impressions: Service Date/Time: Wednesday, November 23, 2016 04:06 - CONCLUSION: 1. Large left hydropneumothorax despite left-sided chest tube. 2. Subcutaneous air tracking along the left chest and left neck. 3. Bilateral pulmonary consolidations more pronounced on the left. This likely relates to pulmonary contusion. 4. Left second through eighth rib fractures. 5. Left clavicular fracture. 6. Tip of the endotracheal tube 1.5 cm down the right mainstem bronchus. Shmuel Callaway Jr., MD Cervical Spine CT 11/23/165 Signed Impressions: Service Date/Time: Wednesday, November 23, 2016 04:00 - CONCLUSION: 1. No fracture or dislocation. 2. Air tracking along the left neck. 3. See the CT of the thorax dictated separately. Shmuel Callaway Jr., MD Abdomen/Pelvis CT 11/23/16 0345 Signed Impressions: Service Date/Time: Wednesday, November 23, 2016 04:06 - CONCLUSION: 1. Small splenic laceration with a small amount of blood adjacent to the spleen. No ongoing hemorrhage appreciated. 2. See the CT of the chest reported separately. 3. Degraded study by breathing motion artifact. Shmuel Callaway Jr., MD Physical Exam GENERAL: This is an obese young male patient, in no apparent distress. On the vent SKIN: + multiple abrasions on face, extremities chest. Skin temperature appropriate. + diaphoretic. HEAD: + traumatic with multiple abrasions. Normocephalic. EYES: Pupils equal and round and reactive. Extraocular motions intact. No scleral icterus. No injection or drainage. Fundi not examined. ENT: Hearing grossly normal. Nose without bleeding or purulent drainage. Orally intubated NECK: Trachea midline. Supple, nontender. CARDIOVASCULAR: Regular rate and rhythm without murmurs, gallops, or rubs. No JVD. Peripheral pulses symmetric. RESPIRATORY/CHEST: Multiple abrasions of the chest. Scattered rhonchi. CT in place on the L with serosanguineous drainage GASTROINTESTINAL: Abdomen soft, non-tender, nondistended. No guarding. Bowel sounds present. GENITOURINARY: Without palpable bladder distension. Be catheter in place with clear yellow urine. Edematous scrotum MUSCULOSKELETAL: Extremities without clubbing, cyanosis, + 1 edema. LUE with intact dry dressing in place. No mottling or clubbing. Dry incisions in LLE NEUROLOGICAL: sedated ; PSYCHIATRIC: unable to assess LINE: TLC no evidence of infection Assessment & Plan Remarks Multitrauma including L pulmonary contusion, [employer]ECT and orthopedic trauma Fever ? PNA Respiratory failure PLAN: Follow C/S Monitor temps Continue Zosyn Continue Vancomycin MOnitor progress Spoke with mother D/W Connie Martinez MD Dec 03, 2016 13:35 dw Connie Martinez MD Dec 03, 2016 13:35
[2016-12-03] MEDS ORDERED: LORazepam 2 MG/ML VIAL IV ONE (14:45)
[2016-12-03] MEDS: LORazepam 2 MG/ML VIAL IV PRN (17:28)
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
[2016-12-03] MEDS: ENOXAPARIN SODIUM 30 MG/0.3 ML SYRINGE SQ SCH (20:14)
[2016-12-04] VITALS (17 sets, daily range): BP systolic 114–132; BP diastolic 36–80; PULSE 62–118; RESP 15–35; TEMP 99–102.1; O2SAT 94–100
[2016-12-04] MEDS: VANCOMYCIN INJ 1,750 MG in SODIUM CHLORID 0.9% 500 ML INJ 500 ML IV SCH ×3 (00:19→16:22)
[2016-12-04] MEDS: LORazepam 2 MG/ML VIAL IV PRN ×3 (00:20→22:30)
[2016-12-04] MEDS: PROPOFOL 1000 MG/100 ML INJ 100 ML IV SCH ×2 (01:26→03:55)
[2016-12-04] MEDS: PIPERACIL-TAZO 4.5 GM PREMIX 100 ML IV SCH ×3 (02:11→18:37)
[2016-12-04] MEDS: HYDROmorphone HCL PF 4 MG/ML VIAL IV PUSH PRN (02:11)
[2016-12-04] MEDS: PANTOPRAZOLE SODIUM 40 MG VIAL IV SCH (03:55)
[2016-12-04] MEDS: fentaNYL DRIP 250 ML IV SCH (03:55)
[2016-12-04] MEDS ORDERED: FUROSEMIDE 40 MG/4 ML VIAL IV PUSH ONE (07:30)
[2016-12-04] MEDS ORDERED: POTASSIUM CHLOR 40 MEQ PREMIX 100 ML IV ONE (07:30)
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
--- NOTE | 2016-12-04 07:47 | PD.ORT.PN ---
Subjective Subjective Remarks POD 8 s/p IMN left femur POD 2 s/p I&D with ORIF left distal humerus intubated/sedated Objective Vitals Vital Signs Date Time Temp Pulse Resp B/P Pulse Ox O2 Delivery O2 Flow Rate FiO2 12/04/16 07:35 95 Nasal Cannula 4 12/04/16 07:35 95 Nasal Cannula 4.00 12/04/16 07:27 100 40 12/04/16 06:00 87 12/04/16 04:07 96 40 12/04/16 04:00 90 12/04/16 04:00 99.0 90 15 114/36 95 12/04/16 04:00 40 12/04/16 02:00 94 12/04/16 01:08 100 40 12/04/16 00:00 40 12/04/16 00:00 99.3 97 20 116/69 100 12/04/16 00:00 97 12/03/16 22:00 88 12/03/16 20:00 90 12/03/16 20:00 40 12/03/16 20:00 98.8 86 16 111/58 99 12/03/16 19:38 99 40 12/03/16 19:00 97 Mechanical Ventilator 40 12/03/16 18:58 17 12/03/16 18:25 100 40 12/03/16 18:00 92 12/03/16 16:00 40 12/03/16 16:00 103 12/03/16 16:00 99.5 103 13 115/56 100 12/03/16 15:59 40 12/03/16 15:54 100 40 12/03/16 14:00 114 12/03/16 12:00 100.9 112 16 128/62 100 12/03/16 12:00 40 12/03/16 12:00 112 12/03/16 11:56 100 40 12/03/16 10:00 98 12/03/16 08:49 97 40 12/03/16 08:00 99.7 98 14 121/58 97 12/03/16 08:00 98 12/03/16 08:00 40 I/O 12/03/16 12/03/16 12/03/16 12/04/16 12/04/16 12/04/16 07:00 15:00 23:00 07:00 15:00 23:00 Intake Total 1094 ml 1256 ml 1119 ml 1561 ml Output Total 1084 ml 2380 ml 665 ml 1035 ml Balance 10 ml -1124 ml 454 ml 526 ml Intake IV Total 1094 ml 1015 ml 973 ml 1104 ml Tube Feeding 141 ml 46 ml 357 ml Tube Irrigant 100 ml 100 ml 100 ml Output Urine Total 1050 ml 2200 ml 625 ml 925 ml Chest Tube Drainage Total 34 ml 180 ml 40 ml 110 ml # Bowel Movements 0 0 0 0 Result Diagram: 12/03/16 0535 12/03/16 0535 Imaging Last 24 hours Impressions Pelvis X-Ray 11/23/16344 Signed Impressions: Service Date/Time: Wednesday, November 23, 2016 03:22 - CONCLUSION: Unremarkable examination of the pelvis. Shmuel Callaway Jr., MD Head CT 11/23/16344 Signed Impressions: Service Date/Time: Wednesday, November 23, 2016 04:00 - CONCLUSION: 1. Right frontal soft tissue hematoma. 2. No acute intracranial abnormality. Shmuel Callaway Jr., MD Chest X-Ray 11/23/16344 Signed Impressions: Service Date/Time: Wednesday, November 23, 2016 03:22 - CONCLUSION: 1. Small left pneumothorax. 2. Tip of the endotracheal tube 1.5 cm down the right mainstem bronchus. 3. Bilateral pulmonary consolidations. These likely relate to pulmonary contusions. Shmuel Callaway Jr., MD Chest CT 11/23/16344 Signed Impressions: Service Date/Time: Wednesday, November 23, 2016 04:06 - CONCLUSION: 1. Large left hydropneumothorax despite left-sided chest tube. 2. Subcutaneous air tracking along the left chest and left neck. 3. Bilateral pulmonary consolidations more pronounced on the left. This likely relates to pulmonary contusion. 4. Left second through eighth rib fractures. 5. Left clavicular fracture. 6. Tip of the endotracheal tube 1.5 cm down the right mainstem bronchus. Shmuel Callaway Jr., MD Cervical Spine CT 11/23/16344 Signed Impressions: Service Date/Time: Wednesday, November 23, 2016 04:00 - CONCLUSION: 1. No fracture or dislocation. 2. Air tracking along the left neck. 3. See the CT of the thorax dictated separately. Shmuel Callaway Jr., MD Abdomen/Pelvis CT 11/23/16344 Signed Impressions: Service Date/Time: Wednesday, November 23, 2016 04:06 - CONCLUSION: 1. Small splenic laceration with a small amount of blood adjacent to the spleen. No ongoing hemorrhage appreciated. 2. See the CT of the chest reported separately. 3. Degraded study by breathing motion artifact. Shmuel Callaway Jr., MD Femur X-Ray 11/23/16 0000 Signed Impressions: Service Date/Time: Wednesday, November 23, 2016 03:22 - CONCLUSION: Comminuted fracture as detailed above. Shmuel Callaway Jr., MD Elbow X-Ray 11/23/16 Signed Impressions: Service Date/Time: Wednesday, November 23, 2016 03:22 - CONCLUSION: Fracture dislocation as detailed above. Shmuel Callaway Jr., MD Chest X-Ray 11/23/16 0000 Signed Impressions: Service Date/Time: Wednesday, November 23, 2016 07:03 - CONCLUSION: 1. No definite pneumothorax. 2. No significant change compared to the prior exam. Jacky Thompson MD Chest X-Ray 11/23/16 Signed Impressions: Service Date/Time: Wednesday, November 23, 2016 04:33 - CONCLUSION: 1. Repositioning of the endotracheal tube. 2. Placement of second chest tube on the left. Shmuel Callaway Jr., MD Chest X-Ray 11/23/16 Signed Impressions: Service Date/Time: Wednesday, November 23, 2016 03:22 - CONCLUSION: 1. Tip of the endotracheal tube down the right mainstem bronchus for 1.5 cm. 2. Bilateral pulmonary contusions more pronounced on the left. 3. Left clavicular fracture. 4. Multiple left rib fractures. 5. Subcutaneous air. 6. No discernible pneumothorax. Shmuel Callaway Jr., MD Objective Remarks LUE: +long arm splint. good cap refill. LLE: dressings clean and dry. distal femur dressing with mild bloody drainage. + Cap refill Assessment & Plan Assessment and Plan 1) Left Femoral Shaft Fx s/p IMN - POD 8 2) Left Open Elbow Fx with dislocation s/p ORIF distal humerus - POD 2 -NWB LLE and LUE -maintain left elbow splint at all times -daily dressing changes to left leg with xeroform/4x4/SIMONE wraps and tape -all ortho surgeries completed Christos Adams Dec 04, 2016 07:47
[2016-12-04] MEDS: ENOXAPARIN SODIUM 30 MG/0.3 ML SYRINGE SQ SCH ×2 (07:50→21:23)
[2016-12-04] MEDS: CHLORHEXIDINE 0.12% (ORAL KIT) 15 ML CUP MT SCH ×2 (08:00→20:00)
[2016-12-04] MEDS ORDERED: PHARMACY ORDERED LAB ONE ×2 (08:45→16:45)
[2016-12-04] MEDS: SODIUM CHLORIDE 0.9% FLUSH 10 ML FLUSH IV FLUSH SCH ×2 (09:00→21:00)
[2016-12-04] MEDS: DOCUSATE SODIUM 50 MG/SENNA 8.6 MG TAB PO SCH ×2 (09:00→21:00)
[2016-12-04] MEDS: LACTULOSE SYRUP 20 GM/30 ML CUP PO SCH (09:00)
[2016-12-04] MEDS: BACITRACIN TOP OINT 15 GM TUBE TOPICAL SCH ×2 (09:00→21:00)
[2016-12-04] MEDS: LACTATED RINGER'S 1000 ML INJ 1,000 ML IV SCH ×2 (09:15→21:31)
[2016-12-04] MEDS: DEXMEDETOMIDINE INJ 200 MCG in SODIUM CHLORIDE 0.9% INJ 50 ML IV SCH ×9 (09:45→23:43)
[2016-12-04] MEDS: ACETAMINOPHEN 1000 MG/100 ML VIAL IV PRN (10:55)
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
[2016-12-04 16:15] LABS: BLOOD, URINE NEG (NEG); COMMENT (UR) CATH-CULT NOT IND; CULTURE IF INDICATED CATH CULTURE NOT IND; GLUCOSE,URINE NEG (NEG); KETONE, URINE NEG (NEG); MUCUS URINE FEW /lpf (OCC); NITRITE,URINE NEG (NEG); PH, URINE 8.5 (5.0-8.5); URINE COLOR YELLOW (YELLW/STRAW)
[2016-12-05] VITALS (14 sets, daily range): BP systolic 119–137; BP diastolic 62–80; PULSE 54–78; RESP 18–26; TEMP 97.5–102.2; O2SAT 93–100
[2016-12-05] MEDS: VANCOMYCIN INJ 1,750 MG in SODIUM CHLORID 0.9% 500 ML INJ 500 ML IV SCH ×3 (00:11→17:44)
[2016-12-05] MEDS: DEXMEDETOMIDINE INJ 200 MCG in SODIUM CHLORIDE 0.9% INJ 50 ML IV SCH ×3 (00:40→03:05)
[2016-12-05] MEDS: PIPERACIL-TAZO 4.5 GM PREMIX 100 ML IV SCH ×3 (02:53→17:44)
[2016-12-05] MEDS: PANTOPRAZOLE SODIUM 40 MG VIAL IV SCH (03:05)
[2016-12-05] MEDS: ACETAMINOPHEN 1000 MG/100 ML VIAL IV PRN (03:11)
[2016-12-05 03:49] LABS: AUTOMATED NEUTROPHIL # 12.8 TH/MM3 (1.8-7.7); BASOPHIL # 0.1 TH/MM3 (0-0.2); BASOPHIL % 0.6 % (0.0-2.0); EOSINOPHIL # 0.1 TH/MM3 (0-0.4); EOSINOPHIL % 0.5 % (0.0-4.0); HEMATOCRIT 25.3 % (39.0-51.0); LYMPHOCYTE # 1.5 TH/MM3 (1.0-4.8); MEAN CORPUSCULAR HEMOGLOBIN 29.2 PG (27.0-34.0); MEAN CORPUSCULAR HGB CONC 33.2 % (32.0-36.0); NEUT % 79.9 % (16.0-70.0); PLATELET COUNT 477 TH/MM3 (150-450); RED BLOOD COUNT 2.88 MIL/MM3 (4.50-5.90); RED CELL DISTRIBUTION WIDTH 14.7 % (11.6-17.2)
[2016-12-05 03:56] LABS: HEMO FLAGS AUTO DIFF
[2016-12-05 04:06] LABS: ALT (GPT) 46 U/L (12-78); ANION GAP 10 MEQ/L (5-15); AST (GOT) 55 U/L (15-37); BICARBONATE 23.1 MEQ/L (21.0-32.0); BLOOD UREA NITROGEN 11 MG/DL (7-18); CHLORIDE 109 MEQ/L (98-107); GLOMERULAR FILTRATION RATE 169 ML/MIN (>89); MAGNESIUM 2.3 MG/DL (1.5-2.5); POTASSIUM 3.4 MEQ/L (3.5-5.1); SODIUM (NA) 142 MEQ/L (136-145)
[2016-12-05 04:07] LABS: ALKALINE PHOSPHATASE 155 U/L (45-117); TOTAL BILIRUBIN ADULT 1.1 MG/DL (0.2-1.0)
[2016-12-05 04:30] LABS: BANDS 20 % (0-6); BASOPHILS 2 % (0-2); METAMYELOCYTES 1 % (0-1); NEUTROPHIL # MANUAL DIFF 12.6 TH/MM3 (1.8-7.7); POLYS (SEG NEUTROPHILS) 58 % (16-70); WBC DIFF SAMPLE 100
[2016-12-05 04:31] LABS: PLATELET ESTIMATE SMEAR HIGH (NORMAL); PLATELET MORPHOLOGY NORMAL (NORMAL); SCAN/DIFF FINAL DIFF MANUAL
[2016-12-05] MEDS: DEXMEDETOMIDINE INJ 1,000 MCG in SODIUM CHLOR 0.9% 250 ML INJ 240 ML IV SCH ×2 (05:52→09:01)
--- NOTE | 2016-12-05 06:28 | RADRPT ---
EXAM DATE/TIME: 12/05/2016 04:56 [facility] COMPARISON: CHEST SINGLE AP, December 02, 2016, 7:47. INDICATIONS : Shortness of breath, possible pulmonary disease. MEDICAL HISTORY : Hypertension. Leukemia. SURGICAL HISTORY : None. ENCOUNTER: Subsequent ACUITY: 1 week PAIN SCORE: Non-responsive. LOCATION: Bilateral chest FINDINGS: The cardiac silhouette is enlarged in transverse diameter. A left chest tube is in place. There is no evidence of pneumothorax. Multiple left rib fractures are present. There is patchy alveolar disease bilaterally compatible with edema or pneumonia. There has been no significant change when compared to the prior exam. CONCLUSION: 1. Cardiomegaly 2. Patchy alveolar disease characteristic of edema or pneumonia. There has been no significant slade e when compared to the prior exam. 3. There is no evidence of pneumothorax. Angel Freed MD on December 05, 2016 at 6:26 Board Certified Radiologist. This report was verified electronically.
[2016-12-05] MEDS: CHLORHEXIDINE 0.12% (ORAL KIT) 15 ML CUP MT SCH ×2 (08:00→20:00)
[2016-12-05] MEDS: BACITRACIN TOP OINT 15 GM TUBE TOPICAL SCH ×2 (08:08→20:23)
[2016-12-05] MEDS: DOCUSATE SODIUM 50 MG/SENNA 8.6 MG TAB PO SCH ×2 (08:08→20:23)
[2016-12-05] MEDS: LACTULOSE SYRUP 20 GM/30 ML CUP PO SCH (08:08)
[2016-12-05] MEDS: ENOXAPARIN SODIUM 30 MG/0.3 ML SYRINGE SQ SCH ×2 (09:00→20:23)
[2016-12-05] MEDS: SODIUM CHLORIDE 0.9% FLUSH 10 ML FLUSH IV FLUSH SCH ×2 (09:00→20:23)
[2016-12-05] MEDS: POTASSIUM CHLOR 40 MEQ PREMIX 100 ML IV PRN (09:01)
[2016-12-05] MEDS: SODIUM PHOSPHATE INJ 30 MMOL in SODIUM CHLOR 0.9% 250 ML INJ 240 ML IV PRN (09:01)
[2016-12-05] MEDS: HYDROmorphone HCL PF 2 MG/ML VIAL IV PUSH PRN (09:02)
[2016-12-05] MEDS: LACTATED RINGER'S 1000 ML INJ 1,000 ML IV SCH (11:55)
[2016-12-05] MEDS ORDERED: PHARMACY ORDERED LAB ONE (16:45)
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
[2016-12-06] VITALS (13 sets, daily range): BP systolic 118–148; BP diastolic 63–78; PULSE 60–82; RESP 16–28; TEMP 98.4–100.3; O2SAT 99–100
[2016-12-06] MEDS: LACTATED RINGER'S 1000 ML INJ 1,000 ML IV SCH ×2 (00:06→15:58)
[2016-12-06] MEDS: VANCOMYCIN INJ 1,750 MG in SODIUM CHLORID 0.9% 500 ML INJ 500 ML IV SCH ×3 (00:06→17:01)
[2016-12-06] MEDS: PIPERACIL-TAZO 4.5 GM PREMIX 100 ML IV SCH ×3 (02:39→10:27)
[2016-12-06] MEDS: PANTOPRAZOLE SODIUM 40 MG VIAL IV SCH (03:29)
[2016-12-06 04:13] LABS: AUTOMATED NEUTROPHIL # 11.1 TH/MM3 (1.8-7.7); BASOPHIL # 0.1 TH/MM3 (0-0.2); BASOPHIL % 0.7 % (0.0-2.0); EOSINOPHIL # 0.3 TH/MM3 (0-0.4); EOSINOPHIL % 1.7 % (0.0-4.0); HEMATOCRIT 24.7 % (39.0-51.0); LYMPH % 11.8 % (9.0-44.0); LYMPHOCYTE # 1.8 TH/MM3 (1.0-4.8); MEAN CELL VOLUME 87.7 FL (80.0-100.0); MEAN CORPUSCULAR HEMOGLOBIN 30.3 PG (27.0-34.0); MEAN CORPUSCULAR HGB CONC 34.5 % (32.0-36.0); MONO % 11.5 % (0.0-8.0); NEUT % 74.3 % (16.0-70.0); PLATELET COUNT 544 TH/MM3 (150-450); RED BLOOD COUNT 2.82 MIL/MM3 (4.50-5.90); RED CELL DISTRIBUTION WIDTH 14.4 % (11.6-17.2)
[2016-12-06 04:19] LABS: HEMO FLAGS AUTO DIFF
[2016-12-06 04:37] LABS: ALT (GPT) 45 U/L (12-78); ANION GAP 10 MEQ/L (5-15); AST (GOT) 49 U/L (15-37); BICARBONATE 22.2 MEQ/L (21.0-32.0); BLOOD UREA NITROGEN 12 MG/DL (7-18); CHLORIDE 107 MEQ/L (98-107); GLOMERULAR FILTRATION RATE 176 ML/MIN (>89); MAGNESIUM 2.2 MG/DL (1.5-2.5); POTASSIUM 3.4 MEQ/L (3.5-5.1); SODIUM (NA) 139 MEQ/L (136-145)
[2016-12-06 04:40] LABS: ALKALINE PHOSPHATASE 171 U/L (45-117); TOTAL BILIRUBIN ADULT 1.1 MG/DL (0.2-1.0)
[2016-12-06] MEDS: POTASSIUM CHLOR 40 MEQ PREMIX 100 ML IV PRN (05:29)
--- NOTE | 2016-12-06 06:40 | RADRPT ---
EXAM DATE/TIME: 12/06/2016 05:17 [facility] COMPARISON: CHEST SINGLE AP, December 05, 2016, 4:56. INDICATIONS : Shortness of breath, possible pulmonary disease. MEDICAL HISTORY : Hypertension. Leukemia. SURGICAL HISTORY : None. ENCOUNTER: Subsequent ACUITY: 1 week PAIN SCORE: Non-responsive. LOCATION: Bilateral chest FINDINGS: The cardiac silhouette is enlarged in transverse diameter. A left chest tube is in place. There is no evidence of pneumothorax. Multiple rib fractures are present. There is patchy alveolar disease bilat erally compatible with edema or pneumonia. CONCLUSION: 1. There is no evidence of pneumothorax. 2. Patchy alveolar disease characteristic of edema or pneumonia. There has been no significant slade e when compared to the prior exam. Angel Freed MD on December 06, 2016 at 6:38 Board Certified Radiologist. This report was verified electronically.
[2016-12-06 08:32] LABS: BANDS 12 % (0-6); BASOPHILS 1 % (0-2); EOSINOPHILS 3 % (0-4); NEUTROPHIL # MANUAL DIFF 11.4 TH/MM3 (1.8-7.7); PLATELET ESTIMATE SMEAR HIGH (NORMAL); PLATELET MORPHOLOGY NORMAL (NORMAL); POLYS (SEG NEUTROPHILS) 64 % (16-70); SCAN/DIFF FINAL DIFF MANUAL; WBC DIFF SAMPLE 100
[2016-12-06] MEDS: BACITRACIN TOP OINT 15 GM TUBE TOPICAL SCH ×2 (09:00→19:58)
[2016-12-06] MEDS: DOCUSATE SODIUM 50 MG/SENNA 8.6 MG TAB PO SCH ×2 (10:25→19:57)
[2016-12-06] MEDS: CHLORHEXIDINE 0.12% (ORAL KIT) 15 ML CUP MT SCH ×2 (10:27→19:58)
[2016-12-06] MEDS: ENOXAPARIN SODIUM 30 MG/0.3 ML SYRINGE SQ SCH ×2 (10:27→19:57)
[2016-12-06] MEDS: LACTULOSE SYRUP 20 GM/30 ML CUP PO SCH (10:29)
[2016-12-06] MEDS: SODIUM CHLORIDE 0.9% FLUSH 10 ML FLUSH IV FLUSH SCH ×2 (10:29→19:57)
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
[2016-12-07] VITALS (10 sets, daily range): BP systolic 109–150; BP diastolic 61–90; PULSE 60–101; RESP 17–27; TEMP 98.7–99.9; O2SAT 95–99
[2016-12-07] MEDS: PIPERACIL-TAZO 4.5 GM PREMIX 100 ML IV SCH ×3 (02:28→17:20)
[2016-12-07] MEDS: PANTOPRAZOLE SODIUM 40 MG VIAL IV SCH (04:03)
[2016-12-07] MEDS: LACTATED RINGER'S 1000 ML INJ 1,000 ML IV SCH (04:03)
[2016-12-07 04:21] LABS: AUTOMATED NEUTROPHIL # 11.8 TH/MM3 (1.8-7.7); BASOPHIL # 0.2 TH/MM3 (0-0.2); BASOPHIL % 1.3 % (0.0-2.0); EOSINOPHIL # 0.2 TH/MM3 (0-0.4); EOSINOPHIL % 1.3 % (0.0-4.0); HEMATOCRIT 27.3 % (39.0-51.0); LYMPH % 13.2 % (9.0-44.0); LYMPHOCYTE # 2.1 TH/MM3 (1.0-4.8); MEAN CORPUSCULAR HEMOGLOBIN 28.9 PG (27.0-34.0); MEAN CORPUSCULAR HGB CONC 32.8 % (32.0-36.0); MONO % 11.4 % (0.0-8.0); NEUT % 72.8 % (16.0-70.0); PLATELET COUNT 637 TH/MM3 (150-450); RED BLOOD COUNT 3.11 MIL/MM3 (4.50-5.90); RED CELL DISTRIBUTION WIDTH 14.7 % (11.6-17.2); WHITE BLOOD COUNT 16.2 TH/MM3 (4.0-11.0)
[2016-12-07 04:23] LABS: HEMO FLAGS AUTO DIFF
[2016-12-07 04:55] LABS: ALKALINE PHOSPHATASE 186 U/L (45-117); ALT (GPT) 53 U/L (12-78); ANION GAP 8 MEQ/L (5-15); AST (GOT) 45 U/L (15-37); BLOOD UREA NITROGEN 8 MG/DL (7-18); CHLORIDE 106 MEQ/L (98-107); GLOMERULAR FILTRATION RATE 188 ML/MIN (>89); MAGNESIUM 2.1 MG/DL (1.5-2.5); POTASSIUM 3.6 MEQ/L (3.5-5.1); SODIUM (NA) 138 MEQ/L (136-145)
[2016-12-07 05:06] LABS: BASOPHILS 1 % (0-2); EOSINOPHILS 1 % (0-4); METAMYELOCYTES 4 % (0-1); POLYS (SEG NEUTROPHILS) 71 % (16-70); WBC DIFF SAMPLE 100
[2016-12-07 05:12] LABS: BANDS 0 % (0-6); NEUTROPHIL # MANUAL DIFF 12.2 TH/MM3 (1.8-7.7); PLATELET ESTIMATE SMEAR HIGH (NORMAL); PLATELET MORPHOLOGY NORMAL (NORMAL); SCAN/DIFF FINAL DIFF MANUAL
--- NOTE | 2016-12-07 07:03 | RADRPT ---
EXAM DATE/TIME: 12/07/2016 05:05 [facility] COMPARISON: CHEST SINGLE AP, December 06, 2016, 5:17. INDICATIONS : Shortness of breath. possible pulmonary disease. MEDICAL HISTORY : Leukemia. Hypertension SURGICAL HISTORY : None. ENCOUNTER: Subsequent ACUITY: 1 week PAIN SCORE: Non-responsive. LOCATION: Bilateral chest FINDINGS: A left-sided chest is in place. There is a tiny left pneumothorax a 3 mm of separation. There is some mild scattered infiltrates. The right lung is mostly clear. The heart size is stable. There are no p leural effusions. CONCLUSION: Tiny left pneumothorax with 3 mm of separation Jacky Thompson MD on December 07, 2016 at 7:00 Board Certified Radiologist. This report was verified electronically.
[2016-12-07] MEDS: CHLORHEXIDINE 0.12% (ORAL KIT) 15 ML CUP MT SCH (08:00)
--- NOTE | 2016-12-07 08:01 | PD.ORT.PN ---
Subjective Subjective Remarks POD 11 s/p IMN left femur POD 5 s/p I&D with ORIF left distal humerus extubated. awake. states pain controlled. Objective Vitals Vital Signs Date Time Temp Pulse Resp B/P Pulse Ox O2 Delivery O2 Flow Rate FiO2 12/07/16 07:38 99 Nasal Cannula 3.00 12/07/16 06:00 65 12/07/16 05:04 23 12/07/16 04:00 98.7 65 23 140/72 99 12/07/16 04:00 65 12/07/16 02:00 62 12/07/16 00:00 62 12/07/16 00:00 98.8 62 27 129/72 99 12/06/16 22:00 62 12/06/16 20:10 100 Nasal Cannula 4.00 12/06/16 20:00 98.9 66 28 148/73 100 12/06/16 20:00 66 12/06/16 19:00 98 Nasal Cannula 4.00 12/06/16 18:00 65 12/06/16 16:00 99.3 60 16 132/78 100 12/06/16 16:00 60 12/06/16 14:00 76 12/06/16 12:00 81 12/06/16 12:00 98.4 81 20 135/63 99 12/06/16 10:00 66 I/O 12/06/16 12/06/16 12/06/16 12/07/16 12/07/16 12/07/16 07:00 15:00 23:00 07:00 15:00 23:00 Intake Total 1080 ml 1535 ml 1503 ml 697 ml Output Total 1410 ml 1400 ml 1820 ml 2000 ml Balance -330 ml 135 ml -317 ml -1303 ml Intake Oral 200 ml 400 ml 20 ml IV Total 1080 ml 1335 ml 1103 ml 677 ml Output Urine Total 1300 ml 1300 ml 1750 ml 2000 ml Chest Tube Drainage Total 110 ml 100 ml 70 ml 0 ml # Bowel Movements 3 2 0 0 Result Diagram: 12/07/1640312/07/16403 Imaging Last 24 hours Impressions Pelvis X-Ray 11/23/16 0349 Signed Impressions: Service Date/Time: Wednesday, November 23, 2016 03:22 - CONCLUSION: Unremarkable examination of the pelvis. Shmuel Callaway Jr., MD Head CT 11/23/16 0345 Signed Impressions: Service Date/Time: Wednesday, November 23, 2016 04:00 - CONCLUSION: 1. Right frontal soft tissue hematoma. 2. No acute intracranial abnormality. Shmuel Callaway Jr., MD Chest X-Ray 11/23/165 Signed Impressions: Service Date/Time: Wednesday, November 23, 2016 03:22 - CONCLUSION: 1. Small left pneumothorax. 2. Tip of the endotracheal tube 1.5 cm down the right mainstem bronchus. 3. Bilateral pulmonary consolidations. These likely relate to pulmonary contusions. Shmuel Callaway Jr., MD Chest CT 11/23/16 0345 Signed Impressions: Service Date/Time: Wednesday, November 23, 2016 04:06 - CONCLUSION: 1. Large left hydropneumothorax despite left-sided chest tube. 2. Subcutaneous air tracking along the left chest and left neck. 3. Bilateral pulmonary consolidations more pronounced on the left. This likely relates to pulmonary contusion. 4. Left second through eighth rib fractures. 5. Left clavicular fracture. 6. Tip of the endotracheal tube 1.5 cm down the right mainstem bronchus. Shmuel Callaway Jr., MD Cervical Spine CT 11/23/165 Signed Impressions: Service Date/Time: Wednesday, November 23, 2016 04:00 - CONCLUSION: 1. No fracture or dislocation. 2. Air tracking along the left neck. 3. See the CT of the thorax dictated separately. Shmuel Callaway Jr., MD Abdomen/Pelvis CT 11/23/165 Signed Impressions: Service Date/Time: Wednesday, November 23, 2016 04:06 - CONCLUSION: 1. Small splenic laceration with a small amount of blood adjacent to the spleen. No ongoing hemorrhage appreciated. 2. See the CT of the chest reported separately. 3. Degraded study by breathing motion artifact. Shmuel Callaway Jr., MD Femur X-Ray 11/23/16 Signed Impressions: Service Date/Time: Wednesday, November 23, 2016 03:22 - CONCLUSION: Comminuted fracture as detailed above. Shmuel Callaway Jr., MD Elbow X-Ray 11/23/16 Signed Impressions: Service Date/Time: Wednesday, November 23, 2016 03:22 - CONCLUSION: Fracture dislocation as detailed above. Shmuel Callaway Jr., MD Chest X-Ray 4/3/17 0000 Signed Impressions: Service Date/Time: Wednesday, November 23, 2016 07:03 - CONCLUSION: 1. No definite pneumothorax. 2. No significant change compared to the prior exam. Jacky Thompson MD Chest X-Ray 11/23/16 0000 Signed Impressions: Service Date/Time: Wednesday, November 23, 2016 04:33 - CONCLUSION: 1. Repositioning of the endotracheal tube. 2. Placement of second chest tube on the left. Shmuel Callaway Jr., MD Chest X-Ray 11/23/16 0000 Signed Impressions: Service Date/Time: Wednesday, November 23, 2016 03:22 - CONCLUSION: 1. Tip of the endotracheal tube down the right mainstem bronchus for 1.5 cm. 2. Bilateral pulmonary contusions more pronounced on the left. 3. Left clavicular fracture. 4. Multiple left rib fractures. 5. Subcutaneous air. 6. No discernible pneumothorax. Shmuel Callaway Jr., MD Objective Remarks LUE: +long arm splint. good cap refill. LLE: dressings clean and dry. distal femur dressing with mild bloody drainage. + Cap refill Assessment & Plan Assessment and Plan 1) Left Femoral Shaft Fx s/p IMN - POD 11 2) Left Open Elbow Fx with dislocation s/p ORIF distal humerus - POD 5 -NWB LLE and LUE -maintain left elbow splint at all times -daily dressing changes to left leg with xeroform/4x4/SIMONE wraps and tape -all ortho surgeries completed -CM for rehab placement -ortho clear for DC to rehab when medically stable Christos Adams Dec 07, 2016 08:01
[2016-12-07] MEDS ORDERED: XARE10TA PO (08:03)
[2016-12-07] MEDS ORDERED: WHEEMIS3 (08:03)
[2016-12-07] MEDS ORDERED: HYDR-3366 PO (08:03)
[2016-12-07] MEDS: SODIUM CHLORIDE 0.9% FLUSH 10 ML FLUSH IV FLUSH SCH ×2 (08:39→19:52)
[2016-12-07] MEDS: LACTULOSE SYRUP 20 GM/30 ML CUP PO SCH (08:39)
[2016-12-07] MEDS: ENOXAPARIN SODIUM 30 MG/0.3 ML SYRINGE SQ SCH ×2 (08:39→19:51)
[2016-12-07] MEDS: DOCUSATE SODIUM 50 MG/SENNA 8.6 MG TAB PO SCH ×2 (08:39→19:51)
[2016-12-07] MEDS: BACITRACIN TOP OINT 15 GM TUBE TOPICAL SCH ×2 (08:40→19:52)
[2016-12-07] MEDS: VANCOMYCIN INJ 1,750 MG in SODIUM CHLORID 0.9% 500 ML INJ 500 ML IV SCH ×4 (09:00→17:59)
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
[2016-12-07] MEDS ORDERED: PHARMACY ORDERED LAB ONE (16:45)
[2016-12-07] MEDS: HYDROmorphone HCL PF 2 MG/ML VIAL IV PUSH PRN (17:21)
--- NOTE | 2016-12-07 17:33 | RADRPT ---
EXAM DATE/TIME: 12/07/2016 17:01 [facility] COMPARISON: CHEST SINGLE AP, December 07, 2016, 5:05. INDICATIONS : Chest tube removal. MEDICAL HISTORY : None. SURGICAL HISTORY : None. ENCOUNTER: Initial ACUITY: 1 day PAIN SCORE: Non-responsive. LOCATION: Bilateral chest FINDINGS: A single view of the chest demonstrates the lungs to be symmetrically aerated with persistent bilater al patchy infiltrates, left greater than right. Possible associated right-sided effusion. Multiple le ft-sided rib fractures as well as a left clavicular fracture. Left-sided thoracostomy tube has been r emoved the patient's left-sided pneumothorax has increased slightly previously measuring approximatel y 3 mm in depth now measuring approximately 1 cm in depth. Accounting for the degree of inspiration, heart size is normal. CONCLUSION: 1. Interval removal of left-sided surgical thoracostomy tube. Left-sided pneumothorax is increased sl ightly now measuring approximately 9-10 mm in depth. 2. Stable patchy bilateral airspace disease, left greater than right. Possible associated right-sided effusion. 3. Extensive left-sided rib fractures and left clavicular fracture. William Whitney MD on December 07, 2016 at 17:28 Board Certified Radiologist. This report was verified electronically.
[2016-12-08] MEDS: VANCOMYCIN INJ 1,750 MG in SODIUM CHLORID 0.9% 500 ML INJ 500 ML IV SCH ×3 (00:34→17:43)
[2016-12-08] MEDS: PIPERACIL-TAZO 4.5 GM PREMIX 100 ML IV SCH ×3 (02:00→17:12)
[2016-12-08] MEDS: PANTOPRAZOLE SODIUM 40 MG VIAL IV SCH (03:02)
[2016-12-08 03:15] VITALS: BP 142/78; PULSE 62; RESP 17; TEMP 99.7; O2SAT 96
[2016-12-08 05:21] LABS: AUTOMATED NEUTROPHIL # 10.7 TH/MM3 (1.8-7.7); BASOPHIL # 0.1 TH/MM3 (0-0.2); BASOPHIL % 0.9 % (0.0-2.0); EOSINOPHIL # 0.5 TH/MM3 (0-0.4); HEMATOCRIT 30.6 % (39.0-51.0); LYMPH % 14.8 % (9.0-44.0); LYMPHOCYTE # 2.3 TH/MM3 (1.0-4.8); MEAN CELL VOLUME 87.6 FL (80.0-100.0); MEAN CORPUSCULAR HEMOGLOBIN 30.4 PG (27.0-34.0); MEAN CORPUSCULAR HGB CONC 34.7 % (32.0-36.0); MONO % 10.6 % (0.0-8.0); NEUT % 70.7 % (16.0-70.0); PLATELET COUNT 664 TH/MM3 (150-450); RED CELL DISTRIBUTION WIDTH 14.6 % (11.6-17.2); WHITE BLOOD COUNT 15.2 TH/MM3 (4.0-11.0)
[2016-12-08 05:31] LABS: HEMO FLAGS AUTO DIFF
[2016-12-08 06:00] LABS: ALT (GPT) 55 U/L (12-78); ANION GAP 8 MEQ/L (5-15); AST (GOT) 35 U/L (15-37); BICARBONATE 23.8 MEQ/L (21.0-32.0); BLOOD UREA NITROGEN 9 MG/DL (7-18); CHLORIDE 107 MEQ/L (98-107); GLOMERULAR FILTRATION RATE 130 ML/MIN (>89); MAGNESIUM 2.2 MG/DL (1.5-2.5); POTASSIUM 3.5 MEQ/L (3.5-5.1); SODIUM (NA) 139 MEQ/L (136-145)
[2016-12-08 06:03] LABS: ALKALINE PHOSPHATASE 236 U/L (45-117); TOTAL BILIRUBIN ADULT 0.8 MG/DL (0.2-1.0)
--- NOTE | 2016-12-08 06:35 | PD.ORT.PN ---
Subjective Subjective Remarks Awake alert Objective Vitals Vital Signs Date Time Temp Pulse Resp B/P Pulse Ox O2 Delivery O2 Flow Rate FiO2 12/08/16 03:15 99.7 62 17 142/78 96 12/07/16 22:52 99.9 69 17 109/61 99 12/07/16 20:51 22 12/07/16 20:00 98.9 78 20 134/65 97 12/07/16 20:00 84 12/07/16 19:00 97 Room Air 12/07/16 17:37 20 12/07/16 16:00 98.9 60 22 131/76 97 12/07/16 16:00 80 12/07/16 12:00 99.0 60 25 150/90 97 12/07/16 12:00 97 12/07/16 08:00 99.4 68 23 138/74 95 12/07/16 08:00 101 12/07/16 07:38 99 Nasal Cannula 3.00 12/07/16 07:00 97 Room Air I/O 12/07/16 12/07/16 12/07/16 12/08/16 12/08/16 12/08/16 07:00 15:00 23:00 07:00 15:00 23:00 Intake Total 697 ml 1237 ml 835 ml Output Total 2000 ml 1850 ml Balance -1303 ml -613 ml 835 ml Intake Oral 20 ml 360 ml 360 ml IV Total 677 ml 877 ml 475 ml Output Urine Total 2000 ml 1800 ml Chest Tube Drainage Total 0 ml 50 ml # Voids 2 # Bowel Movements 0 1 Result Diagram: 12/08/16 0405 12/08/16404 Imaging Last 24 hours Impressions Pelvis X-Ray 11/23/16344 Signed Impressions: Service Date/Time: Wednesday, November 23, 2016 03:22 - CONCLUSION: Unremarkable examination of the pelvis. Shmuel Callaway Jr., MD Head CT 11/23/16344 Signed Impressions: Service Date/Time: Wednesday, November 23, 2016 04:00 - CONCLUSION: 1. Right frontal soft tissue hematoma. 2. No acute intracranial abnormality. Shmuel Callaway Jr., MD Chest X-Ray 11/23/16344 Signed Impressions: Service Date/Time: Wednesday, November 23, 2016 03:22 - CONCLUSION: 1. Small left pneumothorax. 2. Tip of the endotracheal tube 1.5 cm down the right mainstem bronchus. 3. Bilateral pulmonary consolidations. These likely relate to pulmonary contusions. Shmuel Callaway Jr., MD Chest CT 11/23/16 0345 Signed Impressions: Service Date/Time: Wednesday, November 23, 2016 04:06 - CONCLUSION: 1. Large left hydropneumothorax despite left-sided chest tube. 2. Subcutaneous air tracking along the left chest and left neck. 3. Bilateral pulmonary consolidations more pronounced on the left. This likely relates to pulmonary contusion. 4. Left second through eighth rib fractures. 5. Left clavicular fracture. 6. Tip of the endotracheal tube 1.5 cm down the right mainstem bronchus. Shmuel Callaway Jr., MD Cervical Spine CT 11/23/16344 Signed Impressions: Service Date/Time: Wednesday, November 23, 2016 04:00 - CONCLUSION: 1. No fracture or dislocation. 2. Air tracking along the left neck. 3. See the CT of the thorax dictated separately. Shmuel Callaway Jr., MD Abdomen/Pelvis CT 11/23/16344 Signed Impressions: Service Date/Time: Wednesday, November 23, 2016 04:06 - CONCLUSION: 1. Small splenic laceration with a small amount of blood adjacent to the spleen. No ongoing hemorrhage appreciated. 2. See the CT of the chest reported separately. 3. Degraded study by breathing motion artifact. Shmuel Callaway Jr., MD Femur X-Ray 11/23/16 Signed Impressions: Service Date/Time: Wednesday, November 23, 2016 03:22 - CONCLUSION: Comminuted fracture as detailed above. Shmuel Callaway Jr., MD Elbow X-Ray 11/23/16 Signed Impressions: Service Date/Time: Wednesday, November 23, 2016 03:22 - CONCLUSION: Fracture dislocation as detailed above. Shmuel Callaway Jr., MD Chest X-Ray 11/23/16 Signed Impressions: Service Date/Time: Wednesday, November 23, 2016 07:03 - CONCLUSION: 1. No definite pneumothorax. 2. No significant change compared to the prior exam. Jacky Thompson MD Chest X-Ray 11/23/16 0000 Signed Impressions: Service Date/Time: Wednesday, November 23, 2016 04:33 - CONCLUSION: 1. Repositioning of the endotracheal tube. 2. Placement of second chest tube on the left. Shmuel Callaway Jr., MD Chest X-Ray 11/23/16 0000 Signed Impressions: Service Date/Time: Wednesday, November 23, 2016 03:22 - CONCLUSION: 1. Tip of the endotracheal tube down the right mainstem bronchus for 1.5 cm. 2. Bilateral pulmonary contusions more pronounced on the left. 3. Left clavicular fracture. 4. Multiple left rib fractures. 5. Subcutaneous air. 6. No discernible pneumothorax. Shmuel Callaway Jr., MD Objective Remarks LUE: +long arm splint. good cap refill. Intact sensation full extension and flexion of all fingers LLE: dressings clean and dry. distal femur dressing with mild bloody drainage. + Cap refill Assessment & Plan Assessment and Plan 1) Left Femoral Shaft Fx s/p IMN - POD 12 2) Left Open Elbow Fx with dislocation s/p ORIF distal humerus - POD 6 - NWB LUE -maintain left elbow splint at all times Bacitracin daily for all abrasions -daily dressing changes to left leg with xeroform/4x4/SIMONE wraps and tape -all ortho surgeries completed -CM for rehab placement -ortho clear for DC to rehab when medically stable Collin Blackman Jr. Dec 08, 2016 06:35
[2016-12-08 08:02] VITALS: BP 143/73; PULSE 67; RESP 16; TEMP 99.6; O2SAT 97
[2016-12-08] MEDS: ENOXAPARIN SODIUM 30 MG/0.3 ML SYRINGE SQ SCH ×2 (08:34→19:36)
[2016-12-08] MEDS: DOCUSATE SODIUM 50 MG/SENNA 8.6 MG TAB PO SCH ×2 (08:35→19:37)
[2016-12-08] MEDS: LACTULOSE SYRUP 20 GM/30 ML CUP PO SCH (08:35)
[2016-12-08] MEDS: SODIUM CHLORIDE 0.9% FLUSH 10 ML FLUSH IV FLUSH SCH ×2 (08:36→19:36)
[2016-12-08] MEDS: BACITRACIN TOP OINT 15 GM TUBE TOPICAL SCH ×2 (08:37→19:37)
[2016-12-08 08:58] LABS: BANDS 11 % (0-6); EOSINOPHILS 1 % (0-4); MYELOCYTES 2 % (0-0); NEUTROPHIL # MANUAL DIFF 11.6 TH/MM3 (1.8-7.7); PLATELET ESTIMATE SMEAR HIGH (NORMAL); PLATELET MORPHOLOGY NORMAL (NORMAL); POLYS (SEG NEUTROPHILS) 63 % (16-70); SCAN/DIFF FINAL DIFF MANUAL; WBC DIFF SAMPLE 100
--- NOTE | 2016-12-08 10:01 | RADRPT ---
EXAM DATE/TIME: 12/08/2016 07:53 [facility] COMPARISON: CHEST SINGLE AP, December 07, 2016, 17:01. INDICATIONS : Follow up pneumothorax, post left chest tube removal. MEDICAL HISTORY : None. Leukemia. Hypertension. SURGICAL HISTORY : Cholecystectomy. ENCOUNTER: Subsequent ACUITY: 2 weeks PAIN SCORE: 5/10 LOCATION: Left chest FINDINGS: The left upper lateral pneumothorax has decreased in size, now measuring 2 mm (previously measured 9 mm). Patchy areas of infiltrate in the mid and lower left lung are similar to prior. The right lung is clear. The heart is normal size. Multiple displaced left rib fractures, stable. CONCLUSION: Reduction in left pneumothorax to 2 mm. Shmuel Landin MD on December 08, 2016 at 9:58 Board Certified Radiologist. This report was verified electronically.
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
[2016-12-08 12:00] VITALS: BP 134/70; PULSE 69; RESP 18; TEMP 98.7; O2SAT 98
[2016-12-08 15:45] VITALS: BP 144/71; PULSE 66; RESP 18; TEMP 99.7; O2SAT 98
[2016-12-08 19:08] VITALS: BP 122/73; PULSE 71; RESP 18; TEMP 100; O2SAT 100
[2016-12-09] MEDS: VANCOMYCIN INJ 1,750 MG in SODIUM CHLORID 0.9% 500 ML INJ 500 ML IV SCH ×2 (00:24→09:54)
[2016-12-09 00:45] VITALS: BP 141/72; PULSE 66; RESP 18; TEMP 99.2; O2SAT 96
[2016-12-09] MEDS: PIPERACIL-TAZO 4.5 GM PREMIX 100 ML IV SCH ×2 (03:03→08:54)
[2016-12-09] MEDS: PANTOPRAZOLE SODIUM 40 MG VIAL IV SCH ×2 (04:00→04:57)
[2016-12-09 04:15] VITALS: BP 132/66; PULSE 69; RESP 18; TEMP 99.9; O2SAT 99
--- NOTE | 2016-12-09 06:40 | PD.ORT.PN ---
Subjective Subjective Remarks Awake alert Objective Vitals Vital Signs Date Time Temp Pulse Resp B/P Pulse Ox O2 Delivery O2 Flow Rate FiO2 12/09/16 04:15 99.9 69 18 132/66 99 12/09/16 00:45 99.2 66 18 141/72 96 12/08/16 19:08 100.0 71 18 122/73 100 12/08/16 15:45 99.7 66 18 144/71 98 12/08/16 12:00 98.7 69 18 134/70 98 12/08/16 08:02 99.6 67 16 143/73 97 I/O 12/08/16 12/08/16 12/08/16 12/09/16 12/09/16 12/09/16 07:00 15:00 23:00 07:00 15:00 23:00 Intake Total 1320 ml 480 ml Balance 1320 ml 480 ml Intake Oral 1320 ml 480 ml # Voids 6 4 # Bowel Movements 0 0 Result Diagram: 12/08/16 0405 12/08/16 0405 Imaging Last 24 hours Impressions Pelvis X-Ray 11/23/16344 Signed Impressions: Service Date/Time: Wednesday, November 23, 2016 03:22 - CONCLUSION: Unremarkable examination of the pelvis. Shmuel Callaway Jr., MD Head CT 11/23/16344 Signed Impressions: Service Date/Time: Wednesday, November 23, 2016 04:00 - CONCLUSION: 1. Right frontal soft tissue hematoma. 2. No acute intracranial abnormality. Shmuel Callaway Jr., MD Chest X-Ray 11/23/16344 Signed Impressions: Service Date/Time: Wednesday, November 23, 2016 03:22 - CONCLUSION: 1. Small left pneumothorax. 2. Tip of the endotracheal tube 1.5 cm down the right mainstem bronchus. 3. Bilateral pulmonary consolidations. These likely relate to pulmonary contusions. Shmuel Callaway Jr., MD Chest CT 11/23/165 Signed Impressions: Service Date/Time: Wednesday, November 23, 2016 04:06 - CONCLUSION: 1. Large left hydropneumothorax despite left-sided chest tube. 2. Subcutaneous air tracking along the left chest and left neck. 3. Bilateral pulmonary consolidations more pronounced on the left. This likely relates to pulmonary contusion. 4. Left second through eighth rib fractures. 5. Left clavicular fracture. 6. Tip of the endotracheal tube 1.5 cm down the right mainstem bronchus. Shmuel Callaway Jr., MD Cervical Spine CT 11/23/16 0345 Signed Impressions: Service Date/Time: Wednesday, November 23, 2016 04:00 - CONCLUSION: 1. No fracture or dislocation. 2. Air tracking along the left neck. 3. See the CT of the thorax dictated separately. Shmuel Callaway Jr., MD Abdomen/Pelvis CT 11/23/16 0345 Signed Impressions: Service Date/Time: Wednesday, November 23, 2016 04:06 - CONCLUSION: 1. Small splenic laceration with a small amount of blood adjacent to the spleen. No ongoing hemorrhage appreciated. 2. See the CT of the chest reported separately. 3. Degraded study by breathing motion artifact. Shmuel Callaway Jr., MD Femur X-Ray 11/23/16 0000 Signed Impressions: Service Date/Time: Wednesday, November 23, 2016 03:22 - CONCLUSION: Comminuted fracture as detailed above. Shmuel Callaway Jr., MD Elbow X-Ray 11/23/16 Signed Impressions: Service Date/Time: Wednesday, November 23, 2016 03:22 - CONCLUSION: Fracture dislocation as detailed above. Shmuel Callaway Jr., MD Chest X-Ray 11/23/16 Signed Impressions: Service Date/Time: Wednesday, November 23, 2016 07:03 - CONCLUSION: 1. No definite pneumothorax. 2. No significant change compared to the prior exam. Jacky Thompson MD Chest X-Ray 11/23/16 Signed Impressions: Service Date/Time: Wednesday, November 23, 2016 04:33 - CONCLUSION: 1. Repositioning of the endotracheal tube. 2. Placement of second chest tube on the left. Shmuel Callaway Jr., MD Chest X-Ray 11/23/16 0000 Signed Impressions: Service Date/Time: Wednesday, November 23, 2016 03:22 - CONCLUSION: 1. Tip of the endotracheal tube down the right mainstem bronchus for 1.5 cm. 2. Bilateral pulmonary contusions more pronounced on the left. 3. Left clavicular fracture. 4. Multiple left rib fractures. 5. Subcutaneous air. 6. No discernible pneumothorax. Shmuel Callaway Jr., MD Objective Remarks LUE: +long arm splint. good cap refill. Intact sensation full extension and flexion of all fingers LLE: dressings clean and dry. distal femur clean dry and intact. +Cap refill Assessment & Plan Assessment and Plan 1) Left Femoral Shaft Fx s/p IMN - POD 13 2) Left Open Elbow Fx with dislocation s/p ORIF distal humerus - POD 7 - NWB LUE -maintain left elbow splint at all times Bacitracin daily for all abrasions -daily dressing changes to left leg with xeroform/4x4/SIMONE wraps and tape -all ortho surgeries completed -CM for rehab placement xray left femur today -ortho clear for DC to rehab when medically stable Collin Blackman Jr. Dec 09, 2016 06:40
[2016-12-09] MEDS ORDERED: PANT40P PO (07:32)
[2016-12-09] MEDS ORDERED: SENN1TAB PO (07:32)
[2016-12-09] MEDS ORDERED: LACT10SO PO (07:32)
[2016-12-09] MEDS ORDERED: ENOX30P SQ (07:32)
[2016-12-09 08:00] VITALS: BP 121/55; PULSE 90; RESP 18; TEMP 99.6; O2SAT 99
--- NOTE | 2016-12-09 08:15 | RADRPT ---
EXAM DATE/TIME: 12/09/2016 06:31 [facility] COMPARISON: CHEST SINGLE AP, December 08, 2016, 7:53. INDICATIONS : Short of breath. Recent pneumothorax and left chest tube removal. MEDICAL HISTORY : Hypertension. Leukemia. SURGICAL HISTORY : Cholecystectomy. ENCOUNTER: Subsequent ACUITY: 2 weeks PAIN SCORE: 3/10 LOCATION: Left chest FINDINGS: There is a miniscule stable 2 mm pneumothorax identified on the left. Multiple acute displaced fract ures of the left rib cage are also noted. Acute displaced fracture involving the left mid clavicle i s also stable. Patchy infiltrates are noted bilaterally and are slightly worse on the right compared to the previous examination. The heart is stable. CONCLUSION: 1. Tiny stable 2 mm left pneumothorax. 2. Bilateral patchy infiltrates (slightly worse on the right compared to the previous examination). 3. Multiple displaced fractures involving the left rib cage and left mid clavicle are stable. Jaiden Pressley MD on December 09, 2016 at 7:21 Board Certified Radiologist. This report was verified electronically.
[2016-12-09] MEDS: ENOXAPARIN SODIUM 30 MG/0.3 ML SYRINGE SQ SCH (08:54)
[2016-12-09] MEDS: LACTULOSE SYRUP 20 GM/30 ML CUP PO SCH (08:54)
[2016-12-09] MEDS: DOCUSATE SODIUM 50 MG/SENNA 8.6 MG TAB PO SCH (08:55)
[2016-12-09] MEDS: SODIUM CHLORIDE 0.9% FLUSH 10 ML FLUSH IV FLUSH SCH (08:56)
[2016-12-09] MEDS: BACITRACIN TOP OINT 15 GM TUBE TOPICAL SCH (08:56)
--- NOTE | 2016-12-09 09:29 | RADRPT ---
EXAM DATE/TIME: 12/09/2016 09:14 [facility] COMPARISON: FEMUR LEFT (AP & LAT/2VWS), November 26, 2016, 8:10. INDICATIONS : Post op left femur. MEDICAL HISTORY : None. SURGICAL HISTORY : Left femur hardware ENCOUNTER: Subsequent ACUITY: 2 weeks PAIN SCORE: 9/10 LOCATION: Left femur FINDINGS: There is a intramedullary nila which extends from the greater trochanter to the distal metaphysis of t he femur. There are 2 proximal and 2 distal intercalated screws. Comminuted fracture of the midshaf t of the femur has 2 displaced fragments, the largest measures 3.9 cm in length. Both fragments are located medial to the shaft of the femur. The fracture lucency laterally measures up to 2.3 cm in le ngth. There is near-anatomic alignment with less than 2 mm step-off of the cortex anteriorly. Multi ple areas of skin eugenia are present.. CONCLUSION: Expected postoperative changes after internal fixation of a comminuted mid femoral fracture. Shmuel Landin MD on December 09, 2016 at 9:25 Board Certified Radiologist. This report was verified electronically.
[2016-12-09] MEDS ORDERED: OXYC-392 PO (11:45)
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
[2016-12-09] MEDS ORDERED: PROT40TA PO (15:17)
[2016-12-09] MEDS ORDERED: NAPR500T PO (15:17)
[2016-12-10] MEDS ORDERED: PHARMACY ORDERED LAB ONE (00:45)
[2016-12-16] MEDS ORDERED: PROT40TA PO (09:46)
[2016-12-16] MEDS ORDERED: BACI500O2 TOPICAL (09:46)
[2016-12-16] MEDS ORDERED: XARE10TA PO (09:46)
[2016-12-16] MEDS ORDERED: OXYC-392 PO (09:46)
[2016-12-16] MEDS ORDERED: SENN1TAB PO (09:46)
== END 2016-12-09 14:57 | DRG 956 ==
LOC: NEPI 03:26 → EDBD 03:53 → NEDA 03:53 → MERGE 03:53 → N03A 04:21 → N06A 12-07 22:43
PROVIDERS: ADMIT Surgery; ATTEND Surgery
PROC: 5A1955Z Respiratory Ventilation, Greater than 96 Consecutive Hours (ICD-10-PCS; 2016-11-23)
PROC: 04HY32Z Insertion of Monitoring Device into Lower Artery, Percutaneous Approach (ICD-10-PCS; 2016-11-23)
PROC: 0W9B30Z Drainage of Left Pleural Cavity with Drainage Device, Percutaneous Approach (ICD-10-PCS; 2016-11-23)
PROC: 0W9B30Z Drainage of Left Pleural Cavity with Drainage Device, Percutaneous Approach (ICD-10-PCS; 2016-11-23)
PROC: 05H533Z Insertion of Infusion Device into Right Subclavian Vein, Percutaneous Approach (ICD-10-PCS; 2016-11-23)
PROC: 06HM33Z Insertion of Infusion Device into Right Femoral Vein, Percutaneous Approach (ICD-10-PCS; 2016-11-23)
PROC: 30233N1 Transfusion of Nonautologous Red Blood Cells into Peripheral Vein, Percutaneous Approach (ICD-10-PCS; 2016-11-23)
PROC: 30233L1 Transfusion of Nonautologous Fresh Plasma into Peripheral Vein, Percutaneous Approach (ICD-10-PCS; 2016-11-23)
PROC: 0JBH0ZZ Excision of Left Lower Arm Subcutaneous Tissue and Fascia, Open Approach (ICD-10-PCS; 2016-11-26)
PROC: 0QS936Z Reposition Left Femoral Shaft with Intramedullary Internal Fixation Device, Percutaneous Approach (ICD-10-PCS; principal; 2016-11-26 07:13)
PROC: 02HV33Z Insertion of Infusion Device into Superior Vena Cava, Percutaneous Approach (ICD-10-PCS; 2016-11-30)
PROC: 0PSG04Z Reposition Left Humeral Shaft with Internal Fixation Device, Open Approach (ICD-10-PCS; 2016-12-02)
DX: S72.322A Displaced transverse fracture of shaft of left femur, initial encounter for closed fracture (principal); S42.452B Displaced fracture of lateral condyle of left humerus, initial encounter for open fracture; S27.2XXA Traumatic hemopneumothorax, initial encounter; T79.4XXA Traumatic shock, initial encounter; Z99.11 Dependence on respirator [ventilator] status; J15.4 Pneumonia due to other streptococci; J96.01 Acute respiratory failure with hypoxia; J96.02 Acute respiratory failure with hypercapnia; S09.90XA Unspecified injury of head, initial encounter; S22.42XA Multiple fractures of ribs, left side, initial encounter for closed fracture; S36.039A Unspecified laceration of spleen, initial encounter; S27.322A Contusion of lung, bilateral, initial encounter; R40.2431 Glasgow coma scale score 3-8, in the field [EMT or ambulance]; S01.01XA Laceration without foreign body of scalp, initial encounter; R00.0 Tachycardia, unspecified; S42.025A Nondisplaced fracture of shaft of left clavicle, initial encounter for closed fracture; F17.210 Nicotine dependence, cigarettes, uncomplicated; Z85.6 Personal history of leukemia; V03.10XA Pedestrian on foot injured in collision with car, pick-up truck or van in traffic accident, initial encounter
CPT/HCPCS: 29105; 29505; 32551; 36430; 36556; 36600; 51702; 70450; 71010; 71260; 72125; 72170; 73070; 73200; 73552; 74177; 76000; 76937; 80048; 80053; 80202; 81001; 82248; 82435; 82550; 82552; 82565; 82805; 82947; 83605; 83735; 84100; 84132; 84145; 84295; 84520; 85007; 85014; 85018; 85025; 85027; 85384; 85610; 85730; 86850; 86900; 86901; 86920; 86965; 87040; 87070; 87086; 87205; 87641; 90471; 90715; 93306; 94002; 94003; 94150; 94640; 94664; 96374; 96375; 99291; C1713; C1769; C9113; G0390; J0131; J0330; J0690; J1120; J1170; J1580; J1650; J1940; J2060; J2250; J2370; J2543; J3010; J3370; J3430; J3480; J7030; J7040; J7050; J7060; J7070; J7120; P9016; P9017; P9040; P9045; Q9967

== ENCOUNTER 2016-12-18 11:57 | Observation (INO) | payer OTHER, MEDICAID ==
[~2016-12-18] VITALS: Ht 170.2 cm; Wt 72.2 kg
[~2016-12-18 11:57] MED LIST changes: +BACI500O2 TOPICAL; -NAPR500 PO; +OXYC-392 PO; +PROT40TA PO; +SENN1TAB PO; +WHEEMIS3; +XARE10TA PO
[2016-12-18] MEDS ORDERED: ACETAMINOPHEN 1000 MG/100 ML VIAL IV ONE (12:00)
[2016-12-18] MEDS ORDERED: NEOSTIGMINE 3 MG/3 ML SYR IV ONE (12:00)
[2016-12-18] MEDS ORDERED: ONDANSETRON HCL 4 MG/2 ML VIAL IV PUSH ONE (12:00)
[2016-12-18] MEDS ORDERED: PROPOFOL 200 MG/20 ML AMP IV ONE (12:00)
[2016-12-18] MEDS ORDERED: LACTATED RINGER'S 1000 ML INJ 1,000 ML IV ONE (12:00)
[2016-12-18 12:23] VITALS: BP 113/56; PULSE 69; RESP 18; TEMP 99; O2SAT 99
[2016-12-18] MEDS ORDERED: METOPROLOL TARTRATE 25 MG TAB PO PRN (12:30)
[2016-12-18] MEDS ORDERED: SODIUM CHLORID 0.9% 500 ML IV PRN (12:30)
[2016-12-18] MEDS ORDERED: INSULIN HUMAN REGULAR 1,000 UNITS/10 ML VIAL SQ PRN (12:30)
[2016-12-18] MEDS ORDERED: CHLORHEXIDINE GLUCONATE 2 % 1 PACK (2 CLOTHS) TOPICAL PRN (12:30)
[2016-12-18] MEDS ORDERED: LACTATED RINGER'S 1000 ML IV PRN (12:30)
[2016-12-18] MEDS ORDERED: POVIDONE IODINE 5% (ANTISEPSIS KIT) 4 APPLICATIONS EACH NARE PRN (12:30)
[2016-12-18] MEDS ORDERED: [UNRECOGNIZED DRUG - CODE] T-DERMAL (12:54)
[2016-12-18] MEDS ORDERED: OXYC-395 PO (12:54)
[2016-12-18] MEDS ORDERED: ACET325T PO (12:54)
[2016-12-18] MEDS ORDERED: MILKSUS PO (12:54)
[2016-12-18] MEDS ORDERED: ZOFR4TAB PO (12:54)
[2016-12-18] MEDS ORDERED: ceFAZolin INJ 1,000 MG VIAL ONE (14:19)
[2016-12-18] MEDS ORDERED: LIDOCAINE 2%/EPINEPHrine PF 1:200,000 20ML SDV INFIL ONE (14:29)
[2016-12-18] MEDS ORDERED: DO NOT ADM ANY ANTICOAGULANT DRUGS PRN (15:48)
[2016-12-18] MEDS ORDERED: fentaNYL CITRATE 250 MCG/5 ML AMP ONE (15:48)
[2016-12-18] MEDS ORDERED: methylPREDNISolone SOD SUCC 125 MG/2 ML VIAL ONE (16:09)
[2016-12-18] MEDS ORDERED: methylPREDNISolone ACETATE 80 MG/ML VIAL ONE (16:09)
[2016-12-18] MEDS ORDERED: ONDANSETRON HCL 4 MG/2 ML VIAL IVP PRN (17:15)
[2016-12-18] MEDS ORDERED: SODIUM CHLORIDE 0.9% FLUSH 10 ML FLUSH IV FLUSH PRN (17:15)
[2016-12-18] MEDS ORDERED: LIDOCAINE HCL PRN (17:15)
[2016-12-18] MEDS ORDERED: NALOXONE HCL 0.4 MG/ML AMP IV PRN (17:15)
[2016-12-18] MEDS ORDERED: HYDROmorphone HCL PF 1 MG/ML VIAL IV PRN ×2 (17:15)
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
[2016-12-18] MEDS ORDERED: *HYDROmorphone PF 1 MG VIAL PERIprocedural Use ONLY ONE (18:28)
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
[2016-12-18] MEDS ORDERED: MORPHINE SULFATE 4 MG/ML INJ IV PRN (20:45)
[2016-12-18] MEDS: DEXT 5%-NACL 0.45% 1000 ML INJ 1,000 ML IV SCH ×2 (20:45→22:57)
[2016-12-18] MEDS: BACITRACIN TOP OINT 15 GM TUBE TOPICAL SCH (21:00)
[2016-12-18] MEDS: ceFAZolin 1,000 MG/NS 100 ML IV SCH ×2 (21:17)
[2016-12-18] MEDS: methylPREDNISolone SOD SUCC 125 MG/2 ML VIAL IV SCH (21:18)
[2016-12-18] MEDS: SODIUM CHLORIDE 0.9% FLUSH 10 ML FLUSH IV FLUSH SCH (21:18)
[2016-12-18 21:36] VITALS: BP 115/70; PULSE 86; RESP 18; TEMP 98; O2SAT 97
[2016-12-19 00:08] VITALS: BP 129/73; PULSE 66; RESP 18; TEMP 96.7; O2SAT 98
[2016-12-19] MEDS: ACETAMINOPHEN/HYDROcodone 325 MG/7.5 MG TAB PO PRN ×5 (00:35→20:05)
[2016-12-19] MEDS: methylPREDNISolone SOD SUCC 125 MG/2 ML VIAL IV SCH (04:38)
[2016-12-19] MEDS: ceFAZolin 1,000 MG/NS 100 ML IV SCH ×2 (04:39)
[2016-12-19 04:44] VITALS: BP 129/65; PULSE 52; RESP 18; TEMP 97.4; O2SAT 97
[2016-12-19] MEDS ORDERED: methylPREDNISolone ACETATE 80 MG/ML VIAL IM ONE (06:00)
[2016-12-19 07:54] LABS: ALKALINE PHOSPHATASE 266 U/L (45-117); ALT (GPT) 17 U/L (12-78); ANION GAP 7 MEQ/L (5-15); AST (GOT) 11 U/L (15-37); BICARBONATE 27.3 MEQ/L (21.0-32.0); BLOOD UREA NITROGEN 10 MG/DL (7-18); CHLORIDE 102 MEQ/L (98-107); GLOMERULAR FILTRATION RATE 157 ML/MIN (>89); POTASSIUM 4.1 MEQ/L (3.5-5.1); SODIUM (NA) 136 MEQ/L (136-145); TOTAL BILIRUBIN ADULT 0.5 MG/DL (0.2-1.0)
[2016-12-19 08:00] VITALS: BP 134/59; PULSE 80; RESP 16; TEMP 97.4; O2SAT 98
[2016-12-19] MEDS: SODIUM CHLORIDE 0.9% FLUSH 10 ML FLUSH IV FLUSH SCH ×2 (09:00→20:07)
[2016-12-19] MEDS: BACITRACIN TOP OINT 15 GM TUBE TOPICAL SCH ×2 (09:27→20:04)
[2016-12-19 12:00] VITALS: BP 126/63; PULSE 59; RESP 16; TEMP 96.9; O2SAT 97
[2016-12-19 16:00] VITALS: BP 129/71; PULSE 66; RESP 16; TEMP 97.3; O2SAT 98
[2016-12-19] MEDS: DEXT 5%-NACL 0.45% 1000 ML INJ 1,000 ML IV SCH (16:45)
[2016-12-19 19:21] VITALS: BP 131/67; PULSE 74; RESP 19; TEMP 98.6; O2SAT 98
[2016-12-20 00:05] VITALS: BP 121/66; PULSE 55; RESP 18; TEMP 98.7; O2SAT 99
[2016-12-20] MEDS: DEXT 5%-NACL 0.45% 1000 ML INJ 1,000 ML IV SCH (02:45)
[2016-12-20 08:00] VITALS: BP 135/76; PULSE 63; RESP 16; TEMP 98.4; O2SAT 96
[2016-12-20] MEDS: BACITRACIN TOP OINT 15 GM TUBE TOPICAL SCH (09:13)
[2016-12-20] MEDS: ACETAMINOPHEN/HYDROcodone 325 MG/7.5 MG TAB PO PRN (09:13)
[2016-12-20] MEDS: SODIUM CHLORIDE 0.9% FLUSH 10 ML FLUSH IV FLUSH SCH (09:14)
--- NOTE | 2016-12-20 10:19 | HHI.PR ---
Subjective Remarks s/p orif left mandible fracture POD 2 Pt seen and examined , aaox3 nad denies difficulty swallowing/difficulty breathing tolerating po well no complaints, pressure dressing not noted now Objective Vital Signs Date Time Temp Pulse Resp B/P Pulse Ox O2 Delivery O2 Flow Rate FiO2 12/20/16 08:00 98.4 63 16 135/76 96 12/20/16 00:05 98.7 55 18 121/66 99 12/19/16 19:21 98.6 74 19 131/67 98 12/19/16 16:00 97.3 66 16 129/71 98 12/19/16 12:00 96.9 59 16 126/63 97 I/O 12/19/16 12/19/16 12/19/16 12/20/16 12/20/16 12/20/16 07:00 15:00 23:00 07:00 15:00 23:00 Intake Total 651 ml 600 ml 480 ml 360 ml Output Total 200 ml 1200 ml 200 ml Balance 451 ml -600 ml 480 ml 160 ml Intake Oral 600 ml 480 ml 360 ml IV Total 651 ml Output Urine Total 200 ml 1200 ml 200 ml # Voids 2 # Bowel Movements 0 0 0 Result Diagram: 12/19/16 0623 Objective Remarks mild edema left face - soft to palpation/exam, no ecchymosis, no bruising noted mild tenderness to palpation no neck edema, trach midline intraorally, tissues pink, well perfused no signs of infection bleeding pus edema no elevation floor of mouth/tongue all wound margins well approximated sutures intact all wound hemostatic bite in occlusion, reproducible \ Assessment and Plan Assessment and Plan s/p orif left mandible fracture, POD 2 transfer pt to [facility]as service, Dr. Deanna Colmenares, who dictated H & P and admitted pt to his service ok to d/c to home from oms standpoint f/up dr pearl 1 week, [facility] soft diet warm compress left face, 20 min on, 20 min off d/w Ciaran Nowak DMD Dec 20, 2016 10:19
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
== END 2016-12-20 16:46 | disposition home or self-care (01) ==
LOC: HSDC 11:57 → N06B 19:20
PROVIDERS: ADMIT Hospitalist; ATTEND Hospitalist
DX: S02.652A Fracture of angle of left mandible, initial encounter for closed fracture (principal); V03.10XA Pedestrian on foot injured in collision with car, pick-up truck or van in traffic accident, initial encounter; Z85.6 Personal history of leukemia
CPT/HCPCS: 21462; 80053; C1713; G0378; J0131; J0690; J1040; J1100; J1170; J2250; J2405; J2710; J2930; J3010; J7120

== ENCOUNTER 2018-01-31 18:43 | Emergency (ER) | payer SELFPAY ==
[~2018-01-31] VITALS: Ht 170.2 cm; Wt 80.0 kg
[~2018-01-31 18:43] MED LIST changes: +ALEV220T14 PO; -BACI500O2 TOPICAL; +HYDR-3580 PO; +MELO15TA20 PO; -OXYC-392 PO; -PROT40TA PO; -SENN1TAB PO; -WHEEMIS3; -XARE10TA PO
[2018-01-31 19:11] VITALS: BP 125/87; PULSE 114; RESP 18; TEMP 102.8; O2SAT 99
== END 2018-01-31 22:23 | disposition left against medical advice (07) ==
LOC: NED 18:43
DX: R50.9 Fever, unspecified (principal)
CPT/HCPCS: 99281